=== PATIENT | female | born 2000 | race Caucasian/White ===

== ENCOUNTER 2020-05-22 09:58 | Outpatient (CLI) | payer OTHER, SELFPAY | END 2020-05-22 09:59 | disposition home or self-care (01) | LOC: ANHAUDIO 10:01 | PROVIDERS: PCP Family Medicine; Referring Provider Otolaryngology; Visit Provider Otolaryngology | DX: H93.19 Tinnitus, unspecified ear (principal) | CPT/HCPCS: 92552; 92556; 92567 ==

== ENCOUNTER 2023-04-27 21:17 | Emergency (ER) | payer OTHER, SELFPAY ==
--- NOTE | ~2023-04-27 | XR_ITS ---
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 RESULT: Lines, tubes, and devices: None. Lungs and pleura: Clear. Cardiomediastinal silhouette: Normal. Other: No acute osseous or upper abdominal finding. IMPRESSION: No acute cardiopulmonary process. Reviewed, dictated and finalized at location K. DING AND CONSTRUCTION MANAGER
[2023-04-27 21:20] VITALS: BP 124/84; PULSE 80; RESP 20; TEMP 36.6; O2SAT 99
--- NOTE | 2023-04-27 21:23 | ECG_ITS ---
Measurements Intervals [place] Rate: 70 P: 55 MT: 220 QRS: 50 QRSD: 89 T: 37 QT: 375 QTc: 407 Interpretive Statements SINUS RHYTHM WITH FIRST DEGREE AV BLOCK POSSIBLE LEFT ATRIAL ENLARGEMENT BORDERLINE ECG NO PREVIOUS ECG AVAILABLE FOR COMPARISON Electronically Signed On 04-28-2023 5:36:21 FOOT ORTHOPEDIST by Harley Shah D.O.
--- NOTE | 2023-04-27 21:23 | ED.GENADULT ---
HPI - General Adult General Chief complaint: Chest Pain Stated complaint: Chest Pain Time Seen by Provider: 04/27/23 21:22 History of Present Illness HPI narrative: Sandra is a 22F at 5 weeks gestation that was brought to the ED via EMS with chest pain. It is a squeezing in her anterior chest that radiates to her left jaw. She was originally lightheaded, nauseated and short of breath when it happened but this has resolved. She also reports being under a lot of stress with , work and school. Related Data Home Medications Medication Instructions Recorded Confirmed albuterol sulfate 90 mcg/actuation 2 puff inhalation PRN PRN 04/27/23 04/27/23 aerosol inhaler Shortness Of Breath Or Wheezing fluticasone 232 mcg-salmeterol 14 1 inh inhalation 04/27/23 mcg/actuation breath activated powdr (AirDuo RespiClick) hydroxyzine HCl 10 mg tablet 10 mg PO TID PRN Anxiety 04/27/23 04/27/23 hydroxyzine HCl 25 mg tablet 25 mg PO PRN PRN Anxiety 04/27/23 04/27/23 montelukast 10 mg tablet 10 mg PO DAILY 04/27/23 04/27/23 triamcinolone acetonide 0.5 % 1 applic topical BID 04/27/23 04/27/23 topical cream Allergies Allergy/AdvReac Type Severity Reaction Status Date / Time Penicillins Allergy Unknown Verified 04/27/23 21:37 Review of Systems Review of Systems: All systems reviewed & are unremarkable except as noted in HPI and below Exam Const: General: cooperative, healthy appearing, comfortable, no acute distress, well developed, alert, awake and Physically active Orientation/consciousness: oriented to person, oriented to place and oriented to time HENMT: Head: normal to inspection, normocephalic and atraumatic Ears: hearing grossly normal bilaterally and external ears normal Face/Nose/Sinus: Normal external nose present Eyes: General: appearance normal, both eyes and all related structures Periorbital: periorbital findings normal Sclera: sclerae normal Pupils: Equal, round and reactive pupils present Neck: Neck: normal visual inspection Chest: Chest palpation & inspection: normal inspection of the chest Resp: Effort & Inspection: normal respiratory effort, able to speak in complete sentences and no respiratory distress Auscultation: clear to auscultation bilaterally Cardio: Jugular venous distension: no JVD Rate: regular rate Rhythm: regular rhythm GI: Inspection: normal to inspection GI Palp: Yes Soft to palpation Auscultation: normal bowel sounds Skin: General skin exam: normal color and no rashes or lesions noted Neuro: General: oriented to person, oriented to place and oriented to time Cranial nerves: Yes Equal, round and reactive pupils present Extrem: General: normal to inspection Course Course Emergency Course: EKG showed NSR with a 1st degree AV block but no ST elevation/depression EXAMINATION:? XR chest 1V portable Exam Date/Time:? 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 Comparison:? None. RESULT: Lines, tubes, and devices:? None. Lungs and pleura:? Clear. Cardiomediastinal silhouette:? Normal. Other:? No acute osseous or upper abdominal finding. IMPRESSION: No acute cardiopulmonary process. Labs largely unremarkable. Pain did not change with a GI cocktail. After the lorazepam her chest pain was much improved. Vital Signs Vital signs: Vital Signs Temperature 97.9 F 04/27/23 21:20 Pulse Rate 80 04/27/23 21:20 Respiratory Rate 04/27/23 21:20 Blood Pressure 124/84 04/27/23 21:20 Pulse Oximetry 99 04/27/23 21:20 Oxygen Delivery Room Air 04/27/23 21:20 Temperature 97.9 F 04/27/23 21:20 Pulse Rate 80 04/27/23 21:20 Respiratory Rate 20 04/27/23 21:20 Blood Pressure 124/84 04/27/23 21:20 Pulse Oximetry 99 04/27/23 21:20 Oxygen Delivery Room Air 04/27/23 21:20 Medical Decision Making Vital Signs Vital Signs: Vital Signs Temperature 97.9 F 04/27/23 21:20 Pulse Rate 80 04/27/23 21:20
[2023-04-27 21:43] LABS: Basophils Absolute Auto 0.07 K/mm3 (0.00-0.10); Basophils Percent Auto 0.7 % (0.0-1.0); Eosinophils Absolute Auto 0.41 K/mm3 (0.02-0.50); Eosinophils Percent Auto 3.8 % (1.0-6.0); Hematocrit 35.7 % (35.0-49.0); Hemoglobin 11.7 g/dL (12.0-15.0); Immature Granulocyte Absolute 0.14 K/mm3 (0.00-0.00); Immature Granulocyte Percent A 1.3 % (0.0-0.0); Lymphocytes Absolute Auto 2.54 K/mm3 (1.10-4.50); Lymphocytes Percent Auto 23.7 % (18.0-42.0); Mean Corpuscular HGB Conc 32.8 g/dL (32.0-36.0); Mean Corpuscular Hemoglobin 31.8 pg (27.0-31.0); Mean Platelet Volume 9.1 fl (9.2-11.8); Monocytes Absolute Auto 0.69 K/mm3 (0.10-0.90); Monocytes Percent Auto 6.4 % (2.0-11.0); Neutrophils Absolute Auto 6.9 K/mm3 (1.7-7.2); Neutrophils Percent Auto 64.1 % (50.0-70.0); Platelet Count Result 317 K/mm3 (150-420); Red Blood Count 3.68 M/mm3 (4.20-5.40); Red Cell Distribution Width 11.4 % (11.6-14.4); White Blood Count 10.7 K/mm3 (4.8-10.8)
--- NOTE | 2023-04-27 21:51 | PC.NURSE ---
Pt informed on HIV for , pt consented to have HIV testing done. Order obtained and consent signed for HIV test.
[2023-04-27 21:54] LABS: Prothrombin Time 10.8 Seconds (9.50-12.10)
[2023-04-27] MEDS: MAG HYDROX/ALUMINUM HYD/SIMETH 30 ML, PHENobarb/HYOSCY/ATROPINE/SCOP 32.4 MG, LIDOCAINE... PO (21:54)
[2023-04-27 22:00] LABS: Alanine Aminotransferase 18 U/L (14-59); Albumin Level 3.2 g/dL (3.4-5.0); Alkaline Phosphatase 41 U/L (46-116); Aspartate Amino Transferase < 10 U/L (15-37); Bilirubin,Total 0.1 mg/dL (0.00-1.00); Blood Urea Nitrogen 9 mg/dL (7-18); Calcium 8.3 mg/dL (8.5-10.1); Carbon Dioxide 25 mmol/L (21-32); Estimated CRCL calculation 112 ml/min; Estimated Glomerular Filt Rate > 60; Glucose 105 mg/dL (70-99); Lipase 24 U/L (16-77); Total Protein 6.7 g/dL (6.4-8.2); Troponin I 41.9 ng/L (0.00-60.4)
[2023-04-27 22:16] LABS: Anion Gap 11 mmol/L (8-16); Chloride 100 mmol/L (98-108); Osmolality Calculated 280 mOsm/kg (285-295); Potassium 3.3 mmol/L (3.5-5.1); Sodium 136 mmol/L (136-145)
[2023-04-27 22:26] LABS: HIV 1 P24 AG Negative (Negative); HIV 1/2 AB Negative (Negative)
[2023-04-27 22:37] VITALS: BP 108/64; PULSE 71; RESP 20; O2SAT 98
[2023-04-27] MEDS: LORazepam INJ (*CRX) 2 MG/ML VIAL 1 MG IV PUSH (22:37)
[2023-04-27 23:22] LABS: SARS-CoV-2 RNA PCR Negative (Negative)
[2023-04-27 23:26] LABS: Influenza A QL RT-PCR Negative (Negative); Influenza B QL RT-PCR Negative (Negative); RSV RNA, RT-PCR Negative (Negative)
[2023-04-27 23:40] VITALS: BP 108/62; PULSE 71; RESP 18; TEMP 36.6; O2SAT 99
== END 2023-04-27 23:42 | disposition home or self-care (01) ==
PROVIDERS: Emergency Provider Family Medicine
DX: O26.891 Other specified pregnancy related conditions, first trimester (principal); R07.89 Other chest pain; O99.341 Other mental disorders complicating pregnancy, first trimester; F41.9 Anxiety disorder, unspecified; Z79.899 Other long term (current) drug therapy; Z20.822 Contact with and (suspected) exposure to COVID-19; Z3A.01 Less than 8 weeks gestation of pregnancy
CPT/HCPCS: 36415; 71045; 80053; 83690; 84484; 85025; 85610; 87637; 87806; 93005; 96374; 99284; A9270; J2060

== ENCOUNTER 2023-10-12 13:03 | Emergency (ER) | payer OTHER, SELFPAY ==
--- NOTE | 2023-10-12 13:05 | ED.SKABFB ---
HPI - Skin/Abscess/Foreign Bdy General Chief complaint: Skin/Abscess/Foreign Body Stated complaint: right arm bite with discharge Time Seen by Provider: 10/12/23 13:04 Source: patient Mode of arrival: ambulatory Limitations: no limitations History of Present Illness HPI narrative: Jean Carlos is a 23-year-old female patient presenting to the clinic today with complaints of a possible insect bite to her right arm with some discharge. She reports symptoms started on Wednesday. Noticed a area swollen on her arm and then it developed a pustule in she popped it. States she is having some bloody white discharge coming from the area. Area is tender to palpation. She states that did itchy at . Denies any fever, chills, or body aches. Is concerned about scabies Related Data Home Medications Medication Instructions Recorded Confirmed albuterol sulfate 90 mcg/actuation 1 puff inhalation DAILY 06/26/20 10/12/23 aerosol inhaler fluticasone 113 mcg-salmeterol 14 1 inh inhalation DAILY 06/26/20 10/12/23 mcg/actuation breath activated powdr albuterol sulfate 90 mcg/actuation 2 puff inhalation PRN PRN 04/27/23 10/12/23 aerosol inhaler Shortness Of Breath Or Wheezing hydroxyzine HCl 10 mg tablet 10 mg PO TID PRN Anxiety 04/27/23 10/12/23 hydroxyzine HCl 25 mg tablet 25 mg PO PRN PRN Anxiety 04/27/23 10/12/23 montelukast 10 mg tablet 10 mg PO DAILY 04/27/23 10/12/23 triamcinolone acetonide 0.5 % 1 applic topical BID 04/27/23 10/12/23 topical cream fluticasone 232 mcg-salmeterol 14 1 inh inhalation DAILY 10/12/23 10/12/23 mcg/actuation breath activated powdr (AirDuo RespiClick) Allergies Allergy/AdvReac Type Severity Reaction Status Date / Time Penicillins Allergy Unknown Verified 10/12/23 13:04 fluticasone AdvReac Severe Difficulty Verified 10/12/23 13:04 [From Flovent HFA] Breathing Review of Systems Review of Systems: Pertinent positives per HPI. Patient denies any fever, chills, rash, headache, visual changes, dizziness, cough, runny nose, sore throat, shortness of breath, chest pain, palpitations, nausea, vomiting, diarrhea, constipation, abdominal pain, or any urinary issues. PMFSH Social History Social History Smoking status: Current every day smoker (vape) Tobacco type: e-cigarettes/vaping Second hand tobacco smoke exposure: No Alcohol intake: current Substance use: never Substance use type: does not use Living arrangements: with family Gender identity (if verbalized by the patient): Female Spiritual care concerns: No Comments At the time of my signature, I reviewed and agree with the nursing past medical, surgical, social, and family history. There is no relevant family history pertinent to the patient complaint. Exam Narrative: General: Well-developed, well nourished, in no apparent distress Head: Normocephalic, atraumatic. Cardio: Regular rate and rhythm, s1 and s2 normal, no murmur appreciated. Resp: Clear to auscultation bilaterally, no rhonchi, rales, wheezing or rubs. Integumentary: [place], warm, and dry, red, raised, indurated insect bite with a black center with whitish brown discharge (noted from previous picture). Course Course Emergency Course: Portions of this record may have been created with voice recognition software. Level of Care: Express Care Visit Vital Signs Vital signs: Vital signs reviewed MDM - Skin/Abscess/Foreign Bdy MDM Narrative Medical decision making narrative: At the time of visit patient is resting comfortably on the exam table. Patient appears to be nontoxic. Plan: I suspect patient has a infected insect bite. Prescription for Bactrim and mupirocin cream was sent to the pharmacy. Supportive measures were discussed with the patient and they voiced understanding discharge instructions and agrees to treatment plan. Return precautions reviewed Differential Diagnosis Diffe
[2023-10-12 13:08] VITALS: BP 108/70; PULSE 81; RESP 16; TEMP 36.9; O2SAT 100
== END 2023-10-12 13:30 | disposition home or self-care (01) ==
PROVIDERS: Emergency Provider Nurse Practitioner Family
DX: S40.861A Insect bite (nonvenomous) of right upper arm, initial encounter (principal); L08.9 Local infection of the skin and subcutaneous tissue, unspecified; W57.XXXA Bitten or stung by nonvenomous insect and other nonvenomous arthropods, initial encounter; F17.290 Nicotine dependence, other tobacco product, uncomplicated; J45.909 Unspecified asthma, uncomplicated; K21.9 Gastro-esophageal reflux disease without esophagitis; F41.9 Anxiety disorder, unspecified
CPT/HCPCS: 99213; G0463

== ENCOUNTER 2023-10-13 14:33 | Emergency (ER) | payer OTHER, SELFPAY ==
[2023-10-13 14:33] VITALS: BP 117/87; PULSE 70; RESP 16; TEMP 36.3; O2SAT 100
--- NOTE | 2023-10-13 16:04 | ED.SKABFB ---
HPI - Skin/Abscess/Foreign Bdy General Chief complaint: Skin/Abscess/Foreign Body Stated complaint: wounds Time Seen by Provider: 10/13/23 15:51 History of Present Illness HPI narrative: Pt noticed a itchy bumpt on right forearm near elbow and it drained a little yellow fluid. she says she pulled a infected hair out of this spot. Pt has since developed another spot near this on her arm and onother on her right shoulder and left shoulder. [facility] seen [facility] and started on bactrim DS 1 po BID for 7 days. Related Data Home Medications Medication Instructions Recorded Confirmed albuterol sulfate 90 mcg/actuation 1 puff inhalation DAILY 06/26/20 10/12/23 aerosol inhaler fluticasone 113 mcg-salmeterol 14 1 inh inhalation DAILY 06/26/20 10/12/23 mcg/actuation breath activated powdr albuterol sulfate 90 mcg/actuation 2 puff inhalation PRN PRN 04/27/23 10/12/23 aerosol inhaler Shortness Of Breath Or Wheezing hydroxyzine HCl 10 mg tablet 10 mg PO TID PRN Anxiety 04/27/23 10/12/23 hydroxyzine HCl 25 mg tablet 25 mg PO PRN PRN Anxiety 04/27/23 10/12/23 montelukast 10 mg tablet 10 mg PO DAILY 04/27/23 10/12/23 triamcinolone acetonide 0.5 % 1 applic topical BID 04/27/23 10/12/23 topical cream fluticasone 232 mcg-salmeterol 14 1 inh inhalation DAILY 10/12/23 10/12/23 mcg/actuation breath activated powdr (AirDuo RespiClick) Allergies Allergy/AdvReac Type Severity Reaction Status Date / Time Penicillins Allergy Unknown Verified 10/12/23 13:04 fluticasone AdvReac Severe Difficulty Verified 10/12/23 13:04 [From Flovent HFA] Breathing Review of Systems Review of Systems: All systems reviewed & are unremarkable except as noted in HPI and below PMFSH Social History Social History Smoking status: Current every day smoker (vape) Tobacco type: e-cigarettes/vaping Second hand tobacco smoke exposure: No Alcohol intake: current Substance use: never Substance use type: does not use Living arrangements: with family Gender identity (if verbalized by the patient): Female Spiritual care concerns: No Exam Const: General: healthy appearing and no acute distress Nutritional Appearance: well nourished Orientation/consciousness: patient oriented x3 Limitations: no limitations Resp: Effort & Inspection: normal respiratory effort Cardio: Rate: regular rate Rhythm: regular rhythm Skin: Other: small pustular lesion x 4 near fold of elbow on right no abscess, erythematous macular spot to right and left deltoid. Neuro: General: patient oriented x3 and moves all extremities Speech: normal speech Extrem: General: no clubbing, cyanosis or edema Psych: Mental Status: mental status grossly normal Affect: normal affect Attitude: cooperative Course Vital Signs Vital signs: Vital Signs Temperature 97.3 F L 10/13/23 14:33 Pulse Rate 70 10/13/23 14:33 Respiratory Rate 16 10/13/23 14:33 Blood Pressure 117/87 10/13/23 14:33 Pulse Oximetry 100 10/13/23 14:33 Oxygen Delivery Room Air 10/13/23 14:33 Temperature 97.3 F L 10/13/23 14:33 Pulse Rate 70 10/13/23 14:33 Respiratory Rate 16 10/13/23 14:33 Blood Pressure 117/87 10/13/23 14:33 Pulse Oximetry 100 10/13/23 14:33 Oxygen Delivery Room Air 10/13/23 14:33 MDM - Skin/Abscess/Foreign Bdy MDM Narrative Medical decision making narrative: no palpable abscess. looks like folliculitis but several spots so likely MRSA. Will do 2 po bid bactrim Discharge Plan Discharge Clinical Impression: Folliculitis Patient Disposition: Home, Self-Care Condition: Stable Instructions: Antibiotic Form, Folliculitis (ED) Prescriptions: New sulfamethoxazole-trimethoprim [Bactrim DS] 800-160 mg tablet 1 tablet PO Q12H Qty: 14 0RF No Action triamcinolone acetonide 0.5 % cream 1 applic TOPICAL BID montelukast 10 mg Ta
== END 2023-10-13 16:21 | disposition home or self-care (01) ==
PROVIDERS: Emergency Provider Emergency Medicine
DX: L73.9 Follicular disorder, unspecified (principal); F17.290 Nicotine dependence, other tobacco product, uncomplicated; Z79.899 Other long term (current) drug therapy
CPT/HCPCS: 99283

== ENCOUNTER 2023-12-11 23:53 | Emergency (ER) | payer OTHER, SELFPAY ==
[2023-12-11 23:53] VITALS: BP 122/85; PULSE 83; RESP 18; TEMP 36.8; O2SAT 96
--- NOTE | 2023-12-12 00:05 | ED.SKABFB ---
HPI - Skin/Abscess/Foreign Bdy General Chief complaint: Skin/Abscess/Foreign Body Stated complaint: Staph on head Time Seen by Provider: 12/12/23 00:04 Source: patient Mode of arrival: ambulatory History of Present Illness HPI narrative: patient with a scab on her left posterior scalp has a history of Staph otherwise no fever chills no shortness of breath no drainage from the site. complaint: rash Onset (ago): day(s) Related Data Home Medications Medication Instructions Recorded Confirmed albuterol sulfate 90 mcg/actuation 1 puff inhalation DAILY 06/26/20 12/11/23 aerosol inhaler fluticasone 113 mcg-salmeterol 14 1 inh inhalation DAILY 06/26/20 12/11/23 mcg/actuation breath activated powdr albuterol sulfate 90 mcg/actuation 2 puff inhalation PRN PRN 04/27/23 12/11/23 aerosol inhaler Shortness Of Breath Or Wheezing hydroxyzine HCl 10 mg tablet 10 mg PO TID PRN Anxiety 04/27/23 12/12/23 hydroxyzine HCl 25 mg tablet 25 mg PO PRN PRN Anxiety 04/27/23 12/11/23 montelukast 10 mg tablet 10 mg PO DAILY 04/27/23 12/12/23 triamcinolone acetonide 0.5 % 1 applic topical BID 04/27/23 12/12/23 topical cream fluticasone 232 mcg-salmeterol 14 1 inh inhalation DAILY 10/12/23 12/11/23 mcg/actuation breath activated powdr (AirDuo RespiClick) Allergies Allergy/AdvReac Type Severity Reaction Status Date / Time Penicillins Allergy Unknown Verified 10/12/23 13:04 Sulfa (Sulfonamide Allergy Rash Verified 12/11/23 23:59 Antibiotics) fluticasone AdvReac Severe Difficulty Verified 10/12/23 13:04 [From Flovent HFA] Breathing Review of Systems Review of Systems: All systems reviewed & are unremarkable except as noted in HPI and below PMFSH Social History Social History Smoking status: Current every day smoker (vape) Tobacco type: e-cigarettes/vaping Second hand tobacco smoke exposure: No Alcohol intake: current Substance use: never Substance use type: does not use Living arrangements: with family Gender identity (if verbalized by the patient): Female Spiritual care concerns: No Exam Const: General: healthy appearing and no acute distress Nutritional Appearance: well nourished Neck: Neck: normal visual inspection, no lymphadenopathy and no meningeal signs Chest: Chest palpation & inspection: normal inspection of the chest Resp: Effort & Inspection: normal respiratory effort Auscultation: clear to auscultation bilaterally Cardio: Rate: regular rate Rhythm: regular rhythm Skin: Wounds: wounds noted Neuro: General: patient oriented x3 Extrem: General: normal to inspection Course Course Emergency Course: Scabbed lesion on her posterior scalp patient has a mupirocin at home and advised to apply 3 times a day x1 week and with allergies to sulfa and penicillin will give a dose of Levaquin prior to discharge. Critical Care Time Critical Care Time Critical Care Time: No Discharge Plan Discharge Clinical Impression: [place]igo Patient Disposition: Home, Self-Care Condition: Stable Instructions: Antibiotic Form, [place] (ED) Additional Instructions: Advised to continue mupirocin 3 times a day x1 week and take medication as prescribed. Prescriptions: New levofloxacin 500 mg tablet 500 mg PO DAILY 6 Days Qty: 6 0RF No Action triamcinolone acetonide 0.5 % cream 1 applic TOPICAL BID montelukast 10 mg Tablet 10 mg PO DAILY hydroxyzine HCl 25 mg tablet 25 mg PO PRN PRN (Reason: Anxiety) albuterol sulfate 90 mcg/actuation HFA aerosol inhaler 2 puff INHALATION PRN PRN (Reason: Shortness Of Breath Or Wheezing) hydroxyzine HCl 10 mg Tablet 10 mg PO TID PRN (Reason: Anxiety) fluticasone propion-salmeterol [AirDuo RespiClick] 232-14 mcg/actuation aerosol powdr breath activated 1 inh INHALATION DAILY mupirocin 2 % ointment 1 applic topical BID 7 Days Qty: 2
[2023-12-12] MEDS: levoFLOXacin 500 MG TABLET PO (00:10)
== END 2023-12-12 00:22 | disposition home or self-care (01) ==
PROVIDERS: Emergency Provider Emergency Medicine
DX: L01.00 Impetigo, unspecified (principal); F17.290 Nicotine dependence, other tobacco product, uncomplicated; Z79.899 Other long term (current) drug therapy
CPT/HCPCS: 99283; A9270

== ENCOUNTER 2024-08-02 18:11 | Emergency (ER) | payer OTHER, SELFPAY ==
--- OUTSIDE RECORDS SUMMARY | 2024-08-02 18:14 | XMS_ITS | Clinical Summary ---
Author Organization [facility] Address [address] [place] [address] Care Team Providers Care Sample Mounter Name Role Phone Cm Brenner MD Primary Care Provider + Allergies Active Allergy Reactions Criticality Noted Date Comments Amoxicillin Hives Medium 12/05/2017 Fluticasone Anxiety Low 09/24/2017 Medications albuterol HFA (PROVENTIL HFA,VENTOLIN HFA,PROAIR HFA) 90 mcg/actuation inhaler Inhale 2 puffs every 4 (four) hours as needed for wheezing 18 g 07/03/19 19 Active ipratropium-albut joel (DUO-NEB) 0.5-2.5 mg/3 mL nebulizer solutionIndicatio ns:Chronic Obstructive Pulmonary Disease with Bronchospasms Take 3 mL by nebulization every 6 (six) hours 180 mL 07/25/19 19 Active budesonide-formot joel (SYMBICORT) 80-4.5 mcg/actuation inhaler Inhale 2 puffs 2 (two) times a day Rinse mouth with water after use. Do not swallow. 1 Inhaler 07/25/19 19 Active benzonatate (TESSALON) 100 mg capsuleIndication s:Cough Take 1 capsule (100 mg total) by mouth 3 (three) times a day as needed for cough 15 capsule 07/13/19 20 Active Additional Information Patient not taking.Reported on 07/25/2021 cyclobenzaprine (FLEXERIL) 10 mg tablet Take 1 tablet (10 mg total) by mouth 3 (three) times a day as needed for muscle spasms 12 tablet 02/12/20 21 Active Additional Information Patient not taking.Reported on 07/25/2021 ibuprofen (ADVIL,MOTRIN) 600 mg tablet Take 1 tablet (600 mg total) by mouth every 6 (six) hours as needed for pain 30 tablet 02/12/20 21 Active Additional Information Patient not taking.Reported on 07/25/2021 ergocalciferol (VITAMIN D) 50,000 unit capsule ergocalciferol (vitamin D2) 1,250 mcg (50,000 unit) capsule Active etonogestreL (Nexplanon) 68 mg implant Nexplanon 68 mg subdermal implant insert 1 not specified by intramuscular route every time for 3 years 09/09/19 19 Active fluticasone propion-salmetero L (AIRDUO RESPICLICK) 113-14 mcg/actuation inhaler fluticasone 113 mcg-salmeterol 14 mcg/actuation breath activated powdr INHALE 1 PUFF BY MOUTH TWICE A DAY Active fluticasone propionate (FLONASE) 50 mcg/actuation nasal spray fluticasone propionate 50 mcg/actuation nasal spray,suspension Active montelukast (SINGULAIR) 10 mg tablet Take 10 mg by mouth daily 07/07/19 22 Active triamcinolone (KENALOG) 0.5 % cream triamcinolone acetonide 0.5 % topical cream APPLY A THIN LAYERS TO THE AFFECTED AREA(S) ON THE SKIN TWICE DAY Active Active Problems No known active problems Encounters Date Type Department Care Team Description 06/08/2024 6:20 PM CORRECTIONAL 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 Lab [facility] [address] [place] [phone] Screening for tuberculosis 06/08/2024 Orders Only [facility] [address] ([address] Floor) [place] [address] Florentino Rai MD Screening for tuberculosis (Primary Dx) from Last 3 Months Surgical History Surgery Date Site/Laterality Comments TONSILLECTOMY Medical History Medical History Date Comments Asthma Social History Tobacco Use Types Packs/Day Years Used Date Smoking Tobacco: Former Smokeless Tobacco: Never Comments:pt reports that she Vapes Alcohol Use Standard Drinks/Week Comments No 0 (1 standard drink = 0.6 oz pur e alcohol) Comments No Sex and Gender Information Value Date Recorded Sex Assigned at Not on file Legal Sex Female 11:25 AM CORRECTIONAL MAINTENANCE TECHNICIAN Gender Identity Not on file Sexual Orientation Not on file Obstetrics History Last Filed Vital Signs Vital Sign Reading Time Taken Comments Blood Pressure 115/77 01/05/2022 4:37 PM CDT Pulse 74 01/05/2022 4:37 PM CDT Temperature 36.7 C (98.1 F) 01/05/2022 11:43 AM CDT Respiratory Rate 18 01/05/2022 4:37 PM CDT Oxygen Saturation 99% 01/05/2022 4:37 PM CDT Inhaled Oxygen Concentration - - Weight 91.2 kg (201 lb 1 oz) 01/05/2022 11:43 AM CDT Height 160 cm (5' 3 ) 01/05/2022 11:43 AM CDT Body Mass Index 35.62 01/05/2022 11:43 AM CDT Plan of Treatment Health Maintenance Due Date Last Done Comments Cervical Cancer Screening 1999 Depression Screening 1999 Hepatitis C Screening 1999 Pneumococcal vaccine <65 (1 of 1 - PPSV23) 02/28/2009 01/03/2009, 07/02/2001, 05/05/2001, Additional history exists Regular Well Visit/Exam 18-64 06/18/2017 Covid-19 Vaccine (2 - 2023-2 5 season) 2023 12/26/2020 DTaP/Tdap/Td Vaccine (7 - Td or Tdap) 06/12/2032 06/12/2022, 01/30/2011, 05/05/2001, Additional history exists Hepatitis B Screening Completed 03/29/2000 , 1999, 1999 Varicella Vaccines Completed 01/09/2008, 07/05/2000 HPV Vaccines Completed 10/14/2012, 09/18, 01/30/2011 Influenza Vaccine Completed 01/04/2024, , 02/01/2020, Additional history exists Procedures Procedure Name Priority Date/Time Associated Diagnosis Comments T-SPOT.TB Routine 06/08/2024 3:29 PM CORRECTIONAL MAINTENANCE TECHNICIAN Screening for tuberculosis from Last 3 Months Results * T-SPOT.TB Blood (06/08/2024 3:29 PM CORRECTIONAL MAINTENANCE TECHNICIAN) [facility] T-SPOT.TB Negative SeeBelow Comment: Normal Value: Negative A negative test result does not exclude the possibility of exposure to or infection with Mycobacterium tuberculosis (M. tuberculosis). Patients with recent exposure to TB infected individuals exhibiting a negative T-SPOT.TB result should be considered for retesting within 6 weeks or if other relevant clinical symptoms indicate. Results from T-SPOT.TB testing must be used in conjunction with each individual's epidemiological history, current medical status, and results of other diagnostic evaluations. The T-SPOT.TB test is qualitative and results are reported as positive, borderline or negative, given that the test controls perform as expected. In line with the Centers for Disease Control and Prevention's 2010 recommendation to report quantitative measurements alongside the qualitative result, the laboratory provides spot counts for informational purposes only. The T-SPOT.TB test should not be interpreted as a quantitative test. T-SPOT.TB Panel A Spot Count 0 [facility] T-SPOT.TB Panel B Spot Count 0 [facility] T-SPOT.TB Negative Control Passed [facility] T-SPOT.TB Positive Control Passed [facility] Comment: Test Performed at: [facility] [employer] [address] [place] [phone] NADIA GARNER,PHD Blood 06/08/2024 3:29 PM CORRECTIONAL MAINTENANCE TECHNICIAN 06/08/2024 6:25 PM CORRECTIONAL MAINTENANCE TECHNICIAN Florentino Rai MD LAB MICROBIOLOGY - GENERAL OR DERABLES Final Result Performing Organization Address City/State/[facility] Co de Phone Number [facility] Department [place] [address] from Last 3 Months Insurance [facility] Member Subscriber Plan / Payer (Ef fective 2017-Present) Name:Jailyn Perduekellie Ziegler Relation to Subscriber:Self Name:IronSandra Toney Payer ID:[id number] (NA) Type:MEDICAID RISK OTHER Address: [address] Member Subscriber Plan / Payer (Ef fective 2017-Present) Name:Jailyn Perduekellie Ziegler Relation to Subscriber:Self Name:Sandra Perdue Payer ID:[id number] (NA) Type:MEDICAID RISK OTHER Address: [address] Care Teams Sample Mounter Relationship Specialty Start Date End Date Cm Brenner MD [id number] [facility] [address] [place] [address] PCP - General Family Medicine 08/03/23
--- OUTSIDE RECORDS SUMMARY | 2024-08-02 18:14 | XMS_ITS | Referral Summary ---
Author Organization [facility] Address [address] [place] [address] Care Team Providers Care Sheet Manager Name Role Phone Cm Brenner MD Primary Care Provider + Encounters Date Type Department Care Team Description 06/08/2024 6:20 PM THIOKOL OPERATOR Lab [facility] Advanced Medicine [facility] Advanced Medicine ([facility]) [address] [place] [phone] Screening for tuberculosis 06/08/2024 Orders Only [facility] Occupatiuonal Health [address] [facility] [address] (Third Floor) [place] [address] Florentino Rai MD Screening for tuberculosis (Primary Dx) from Last 3 Months Allergies Active Allergy Reactions Criticality Noted Date [...] Active Active Problems No known active problems Social History Tobacco Use Types Packs/Day Years Used Date Smoking Tobacco: Former Smokeless Tobacco: Never Comments:pt reports that she Vapes Alcohol Use Standard Drinks/Week Comments No 0 (1 standard drink = 0.6 oz pur e alcohol) Comments No Sex and Gender Information Value Date Recorded Sex Assigned at Not on file Legal Sex Female 11:25 AM THIOKOL OPERATOR Gender Identity Not on file Sexual Orientation Not on file Last Filed Vital Signs Vital Sign Reading [...] 01/05/2022 11:43 AM CDT Plan of Treatment Not on file Procedures Procedure Name Priority Date/Time Associated Diagnosis Comments T-SPOT.TB Routine 06/08/2024 3:29 PM THIOKOL OPERATOR Screening for tuberculosis from Last 3 Months Results * T-SPOT.TB Blood (06/08/2024 3:29 PM THIOKOL OPERATOR) [facility] T-SPOT.TB Negative SeeBelow Comment: Normal Value: [...] test. T-SPOT.TB Panel A Spot Count 0 [facility] T-SPOT.TB Panel B Spot Count 0 [facility] T-SPOT.TB Negative Control Passed [facility] T-SPOT.TB Positive Control Passed [facility] Comment: Test Performed at: Command Information TB, Tag & See [address] [address] NADIA GARNER,PHD Blood 06/08/2024 3:29 PM THIOKOL OPERATOR 06/08/2024 6:25 PM THIOKOL OPERATOR us Florentino Rai MD LAB MICROBIOLOGY - GENERAL OR DERABLES Final Result [facility] Department [place] [address] from Last 3 Months Insurance [facility] Member Subscriber Plan / Payer (Ef fective 2017-Present) Name:Sandra Perdue Relation to Subscriber:Self Name:Sandra Perdue Payer ID:[id number] (NAIC) Type:MEDICAID RISK OTHER Address: [address] Care Teams Sheet Manager Relationship Specialty Start Date End Date Cm Brenner MD [address] [facility] [address] [place] [address] PCP - General Family Medicine 08/03/23
[2024-08-02 18:15] VITALS: BP 108/74; PULSE 81; RESP 17; TEMP 36.1; O2SAT 100
--- OUTSIDE RECORDS SUMMARY | 2024-08-02 18:15 | XMS_ITS | Data Portability ---
Author Organization [facility] [place] Address [address] [place] [address] [place] [address] Care Team Providers Care Marketing Representative Name Role Phone BEKAH WANG Primary Care Provider [phone] Assessment Encounter Date Assessment Date Assessment LastModified by Organization Details LastModified Time 06/13/2024 06/13/2024 Patient is ___weeks . Discussed plan. [email or web address] Not available 06/13/2024 14:46:17 07/11/2024 07/11/2024 Patient is __20_weeks . Discussed plan. Not available 07/12/2024 08:39:49 Plan of Treatment Reminders Order Date Submit Date Provider Last Modified By Organization Details Last Modified Time Details Appointments OB ROUTINE 2024 09:00A Delilah Ng CNM Not available Not available Not available Lab drug screen, urine 2024 025 [email or web address] [place], [address], [place], [address], 05/16/2024 11:41:48 genetic screen, unspecifi ed specimen 2024 025 MAURIZIO Araujo, [address] , [place], [address], 05/26/2024 17:41:00 aneuploid y risk, chromosom e specific circulati ng cell free (ccf) DNA, maternal serum 2024 025 MAURIZIO Araujo, [address] [facility] , [place], [address], 05/23/2024 00:30:21 HbA1c (hemoglob in A1c), blood 2024 025 [facility] (Lab), [address], [place], [address], 05/17/2024 10:37:49 type + screen, serum 2024 025 [facility] (Lab), [address], [place], [address], 05/17/2024 10:37:48 rubella igg Ab, titer, serum 2024 025 [facility] (Lab), [address], [place], [address], 05/17/2024 10:37:47 CBC w/ auto diff 2024 025 [facility] (Lab), [address], [place], [address], 05/17/2024 10:37:46 hepatitis C virus Ab, serum 2024 025 [facility] (Lab), [address], [place], [address], 05/17/2024 10:37:48 HBsAg (hepatiti s B surface Ag), serum 2024 025 [facility] (Lab), [address], [place], [address], 05/17/2024 10:37:46 RPR (rapid plasma reagin), serum 2024 025 [facility] (Lab), [address], [place], [address], 05/17/2024 10:37:49 HIV 1+2 AB + HIV 1 p24 Ag, qualitati ve immunoass ay, serum 2024 025 [facility] (Lab), [address], [place], [address], 05/17/2024 10:37:47 Referral None recorded. Procedures None recorded. Surgeries None recorded. Imaging US, obstetric , 2nd or 3rd trimester 2024 025 [email or web address] [place], [address], [place], [address], 07/11/2024 23:02:57 US, obstetric , nuchal transluce ncy 2024 025 [email or web address] [place], [address], [place], [address], 05/17/2024 08:27:19 Medication Orders None recorded. Patient TargetsNo targets recorded. Patient InstructionsNo instructions recorded. Reason for Referral None Reported. Results Created Date Observation Date Name Description Value Unit Range Abnormal Flag Note LastModifiedBy Organization Detail LastModifiedTime 05/23/19 25 05/23/2024 [UNIT Y] ANEUP LOIDY NIPT fraction 4.9% normal Not Available [facility] [address] [place] [address], [address], 05/23/2024 00:30:21 05/23/19 25 05/23/2024 [UNIT Y] ANEUP LOIDY NIPT 22Q11.2 microdeletio n LOW RISK <1 in 10,000 normal Not Available [facility] [place], [address], 05/23/2024 00:30:21 05/23/19 25 05/23/2024 [UNIT Y] ANEUP LOIDY NIPT sex chromosome aneuploidy NOT DETECT ED normal Not Available [facility] [address] [place], [address], 05/23/2024 00:30:21 05/23/19 25 05/23/2024 [UNIT Y] ANEUP LOIDY NIPT monosomy X LOW RISK <1 in 10,000 normal Not Available [facility], [place], [address], 05/23/2024 00:30:21 05/23/19 25 05/23/2024 [UNIT Y] ANEUP LOIDY NIPT trisomy 13 LOW RISK <1 in 10,000 normal Not Available [facility] [address] [facility], [place], [address], 05/23/2024 00:30:21 05/23/19 25 05/23/2024 [UNIT Y] ANEUP LOIDY NIPT trisomy 18 LOW RISK <1 in 10,000 normal Not Available [facility] [address] [facility], [place], [address], 05/23/2024 00:30:21 05/23/19 25 05/23/2024 [UNIT Y] ANEUP LOIDY NIPT trisomy 21 LOW RISK <1 in 10,000 normal Not Available [facility] [address] [facility], [place], [address], 05/23/2024 00:30:21 05/23/19 25 05/23/2024 [UNIT Y] ANEUP LOIDY NIPT sex MALE normal Not Available [facility] [address] [facility], [place], [address], 05/23/2024 00:30:21 05/23/19 25 05/23/2024 [UNIT Y] ANEUP LOIDY NIPT gestation SINGLE TON EGG DONOR normal Not Available [facility] [address] [facility], [place], [address], 05/23/2024 00:30:21 05/23/19 25 05/23/2024 [UNIT Y] ANEUP LOIDY NIPT for detailed report, see pdf See PDF normal Not Available [facility] [address] [facility], [place], [address], 05/23/2024 00:30:21 05/26/19 25 05/26/2024 [UNIT Y] KARI Ortega sickle cell disease/beta -thalassemia /hemoglobino pathies carrier screen NEGATI VE normal Not Available [facility] [address], [place], [address], 05/26/2024 17:41:00 05/26/19 25 05/26/2024 [UNIT Y] KARI SALCIDOBaylee Ortega alpha-thalas semia carrier screen NEGATI VE normal Not Available [facility] [address], [place], [address], 05/26/2024 17:41:00 05/26/19 25 05/26/2024 [UNIT Y] KARI SALCIDOBaylee Ortega cystic fibrosis carrier screen NEGATI VE normal Not Available [facility] [address], [place], [address], 05/26/2024 17:41:00 05/26/19 25 05/26/2024 [UNIT Y] KARI SALCIDOBaylee Ortega spinal muscular atrophy carrier screen NEGATI VE 2 SMN1 copies , SNP not presen t normal Not Available [facility] [address], [place], [address], 05/26/2024 17:41:00 05/26/19 25 05/26/2024 [UNIT Y] KARI PILLAI Jordan for detailed report, see pdf See PDF normal Not Available [facility] [address] [facility], [place], [address], 05/26/2024 17:41:00 04/20/19 25 04/20/2024 CT/GC AND TRICH OMONA S VAGIN KIRAN (RRNA ), URINE chlamydia trachomatis, PCR Positi ve negati ve abnormal Posit buffy: Prese nce of C. trach omati s (by AGATA) Chlam ydia trach omati s RNA detec kelsy by PCR. Not Available [facility] (Lab) [address], [place], [address], 04/22/2024 08:06:17 04/20/19 25 04/20/2024 CT/GC AND TRICH OMONA S VAGIN KIRAN (RRNA ), URINE neisseria gonorrhoeae, PCR Negati ve negati ve Not Available [facility] (Lab) [address] [facility], [place], [address], 04/22/2024 08:06:17 04/20/1904/20/2024 CT/GC AND TRICH OMONA S VAGIN KIRAN (RRNA ), URINE trichomonas vaginalis ribosomal RNA (rrna) Negati ve negati ve Not Available [facility] (Lab) [address] [facility], [place], [address], 04/22/2024 08:06:17 05/16/19 25 05/16/2024 CBC W/DIF F WBC 10.5 10'3/ uL 3.5-[address] [facility] (Lab) [address] [facility], [place], [address], 05/17/2024 10:37:45 05/16/19 25 05/16/2024 CBC W/DIF F RBC 4.12 10'6/ uL (based on docume nted legal sex) 3.80-[address] [facility] (Lab) [address] [facility], [place], [address], 05/17/2024 10:37:45 05/16/19 25 05/16/2024 CBC W/DIF F HGB 12.8 g/dL (based on docume nted legal sex) 11.6-[address] [facility] (Lab) [address] [facility], [place], [address], 05/17/2024 10:37:45 05/16/19 25 05/16/2024 CBC W/DIF F HCT 39.2 % (based on docume nted legal sex) 34.0-[address] [facility] (Lab) [address] [facility], [place], [address], 05/17/2024 10:37:45 05/16/19 25 05/16/2024 CBC W/DIF F MCV 95.1 fL 80.0-[address] [facility] (Lab) [address] [facility], [place], [address], 05/17/2024 10:37:45 05/16/19 25 05/16/2024 CBC W/DIF F MCH 31.1 pg 27.0-[address] [facility] (Lab) [address] [facility], [place], [address], 05/17/2024 10:37:45 05/16/19 25 05/16/2024 CBC W/DIF F MCHC 32.7 g/dL 32.0-[address] [facility] (Lab) [address] [facility], [place], [address], 05/17/2024 10:37:45 05/16/19 25 05/16/2024 CBC W/DIF F RDW 12.1 % 11.0-[address] [facility] (Lab) [address] [facility], [place], [address], 05/17/2024 10:37:45 05/16/19 25 05/16/2024 CBC W/DIF F plt 304 10'3/ uL 150-[address] [facility] (Lab) [address] [facility], [place], [address], 05/17/2024 10:37:45 05/16/19 25 05/16/2024 CBC W/DIF F MPV 10.8 fL 8.8-[address] [facility] (Lab) [address] [facility], [place], [address], 05/17/2024 10:37:45 05/16/19 25 05/16/2024 CBC W/DIF F neutrophils 68.9 % 34.0-[address] [facility] (Lab) [address] [facility], [place], [address], 05/17/2024 10:37:45 05/16/19 25 05/16/2024 CBC W/DIF F lymphocytes 18.9 % 15.0-[address] [facility] (Lab) [address] [facility], [place], [address], 05/17/2024 10:37:45 05/16/19 25 05/16/2024 CBC W/DIF F monocytes 6.5 % 1.0-[address] [facility] (Lab) [address] [facility], [place], [address], 05/17/2024 10:37:45 05/16/19 25 05/16/2024 CBC W/DIF F eosinophils 4.7 % 0.0-8. [address] [facility] (Lab) [address] [facility], [place], [address], 05/17/2024 10:37:45 05/16/19 25 05/16/2024 CBC W/DIF F basophils 0.5 % 0.0-2. [address] [facility] (Lab) [address] [facility], [place], [address], 05/17/2024 10:37:45 05/16/19 25 05/16/2024 CBC W/DIF F immature granulocytes 0.5 % no define d refere nce range Immat ure Granu locyt es (IG) repre sents autom ated enume ratio n of Metam yeloc ytes, Myelo cytes and Promy elocy vi when IG is < 5%. Blast s are not inclu ded in IG and repor kelsy separ ately if prese nt. Not Available [facility] (Lab) [address] [facility], [place], [address], 05/17/2024 10:37:45 05/16/19 25 05/16/2024 CBC W/DIF F absolute neutrophils 7.3 10'3/ uL 1.5-8. [address] [facility] (Lab) [address] [facility], [place], [address], 05/17/2024 10:37:45 05/16/19 25 05/16/2024 CBC W/DIF F absolute lymphocytes 2.0 10'3/ uL 1.0-4. [address] [facility] (Lab) [address] [facility], [place], [address], 05/17/2024 10:37:45 05/16/19 25 05/16/2024 CBC W/DIF F absolute monocytes 0.7 10'3/ uL 0.2-1. [address] [facility] (Lab) [address] [facility], [place], [address], 05/17/2024 10:37:45 05/16/19 25 05/16/2024 CBC W/DIF F absolute eosinophils 0.5 10'3/ uL 0.0-0. [address] [facility] (Lab) [address] [facility], [place], [address], 05/17/2024 10:37:45 05/16/19 25 05/16/2024 CBC W/DIF F absolute basophils 0.1 10'3/ uL 0.0-0. [address] [facility] (Lab) [address] [facility], [place], [address], 05/17/2024 10:37:45 05/16/19 25 05/16/2024 CBC W/DIF F absolute immature granulocytes 0.1 10'3/ uL 0.00-0 .10 Refer ence range s for nonbi nary/ inter sex or unspe cifie d gende r patie nts have not been estab lishe d. Pleas e refer [facility] table for range s estab lishe d for cisge nder patie nts and evalu ate in the clini azael itz xt of the indiv idual patie nt: https ://ron gil book. nm.or g/Gen derX Not Available [facility] (Lab) [address] [facility], [place], [address], 05/17/2024 10:37:45 05/16/19 25 05/16/2024 HEPAT ITIS B SURFA CE ANTIG EN hepatitis B surface antigen Non-re active non-re active This assay was perfo rmed using [employer] ratio n reage nts and test kits. Value s obtai richard with other assay metho ds or kits canno t be used inter thompson eably . Not Available [facility] (Lab) [address] [facility], [place], [address], 05/17/2024 10:37:46 05/16/19 25 05/16/2024 HIV 1/2 ANTIG EN/AN TIBOD Y, REFLE X CONFI RMATI ON HIV antigen/anti body Nonrea ctive nonrea ctive HIV-1 antig en and HIV-1 /HIV- 2 antib odies were not detec kelsy. No labor atory evide nce of HIV infec tion. Not Available [facility] (Lab) [address] [facility], [place], [address], 05/17/2024 10:37:47 05/16/19 25 05/16/2024 RUBEL LA IGG ANTIB GILMA, QUANT rubella antibodies, IgG Non-Re active reacti ve abnormal Not Available [facility] (Lab) [address] [facility], [place], [address], 05/17/2024 10:37:47 05/16/19 25 05/16/2024 RUBEL LA IGG ANTIB GILMA, QUANT rubella antibodies, IgG quant <10.0 IU/mL >=10 low Non-r eacti ve (Non- Immun e) <10 IU/mL React buffy (Immu ne) > or = 10 IU/mL Not Available [facility] (Lab) [address] [facility], [place], [address], 05/17/2024 10:37:47 05/16/19 25 05/16/2024 TYPE/ RH/SC REEN ABO/Rh type A POS Not Available [facility] (Lab) [address] [facility], [place], [address], 05/17/2024 10:37:48 05/16/19 25 05/16/2024 TYPE/ RH/SC REEN antibody screen NEG Not Available [facility] (Lab) [address], [place], [address], 05/17/2024 10:37:48 05/16/19 25 05/16/2024 TYPE/ RH/SC REEN exp date 2024 23:[address] [facility] (Lab) [address], [place], [address], 05/17/2024 10:37:48 05/16/19 25 05/16/2024 HEPAT ITIS C ANTIB GILMA SCREE N, REFLE X TO CONFI RMATI ON hepatitis C antibody Non-re active non-re active Antib odies to HCV Not Detec kelsy, does not exclu de the possi bilit y of expos ure to HCV. Not Available [facility] (Lab) [address], [place], [address], 05/17/2024 10:37:48 05/16/19 25 05/16/2024 HEMOG LOBIN A1C hemoglobin A1C 5.3 % 4.0-5. 6 The Ameri can Diabe vi Assoc iatio n recom mends that a prima ry goal of thera py shawn d be a HBA1C of < 7% and that physi cians shoul d reeva luate the treat ment regim en in patie nts with HBA1C value s consi stent ly > 8%. <5.7% Toshia l 5.7 - 6.4% Incre ased risk for diabe vi >=6.5 % Diagn ostic of diabe vi <7.0% Goal of thera py >8.0% Actio n sugge sted Not Available [facility] (Lab) [address], [place], [address], 05/17/2024 10:37:49 05/16/19 25 05/16/2024 RPR SCREE N, REFLE X TITER /CONF IRMAT ION RPR screen Nonrea ctive nonrea ctive Not Available [facility] (Lab) [address], [place], [address], 05/17/2024 10:37:49 05/16/19 25 05/16/2024 CT/GC AND TRICH OMONA S VAGIN KIRAN (RRNA ), URINE chlamydia trachomatis, PCR Negati ve negati ve Not Available [facility] (Lab) [address] [facility], [place], [address], 05/17/2024 13:19:05 05/16/19 25 05/16/2024 CT/GC AND TRICH OMONA S VAGIN KIRAN (RRNA ), URINE neisseria gonorrhoeae, PCR Negati ve negati ve Not Available [facility] (Lab) [address] [facility], [place], [address], 05/17/2024 13:19:05 05/16/19 25 05/16/2024 CT/GC AND TRICH OMONA S VAGIN KIRAN (RRNA ), URINE trichomonas vaginalis ribosomal RNA (rrna) Negati ve negati ve Not Available [facility] (Lab) [address] [facility], [place], [address], 05/17/2024 13:19:05 05/16/1905/16/2024 CULTU RE: URINE result report SEE RESULT S BELOW Test: Cultu re: Urine Speci men Sourc e: Urine - Clean Catch Speci men Type: Urine Speci men Date: 2024 1317 Resul t Date: 20248 Resul t Statu s: Final resul t Abnor mal: No Resul ting Lab: [facility] [address] [facility] [address] Tel: CULTU RE ----- ----- ----- --- No growt h in 1 day (dete ction level of 10,00 0 colon ies / ml.) Not Available [facility] (Lab) [address] [place], [address], 05/17/2024 23:02:41 05/16/19 25 05/16/2024 drug scree n, urine Amphetamines : negati ve Not Available [place] [address], [place], [address], 05/16/2024 11:41:01 05/16/19 25 05/16/2024 drug scree n, urine Cannabinoids : negati ve Not Available [place] [address], [place], [address], 05/16/2024 11:41:01 05/16/19 25 05/16/2024 drug scree n, urine Cocaine: negati ve Not Available [place] [address], [place], [address], 05/16/2024 11:41:01 05/16/19 25 05/16/2024 drug scree n, urine Opiates: negati ve Not Available [place] [address], [place], [address], 05/16/2024 11:41:01 05/16/19 25 05/16/2024 drug scree n, urine Phenocyclidi ne: negati ve Not Available [place] [address], [place], [address], 05/16/2024 11:41:01 05/16/19 25 05/16/2024 drug scree n, urine Barbiturates : negati ve Not Available [place] [address], [place], [address], 05/16/2024 11:41:01 05/16/19 25 05/16/2024 drug scree n, urine Benzodiazepi lara: negati ve Not Available [facility] [address], [place], [address], 05/16/2024 11:41:01 05/16/19 25 05/16/2024 drug scree n, urine Ethanol: negati ve Not Available [place] [address], [place], [address], 05/16/2024 11:41:01 05/16/19 25 05/16/2024 drug scree n, urine Hallucinogen s: negati ve Not Available [facility] [address], [place], [address], 05/16/2024 11:41:01 05/16/19 25 05/16/2024 drug scree n, urine Inhalants: negati ve Not Available [facility] [address], [place], [address], 05/16/2024 11:41:01 05/16/19 25 05/16/2024 drug scree n, urine Anabolic Steroids: negati ve Not Available [place] [address], [place], [address], 05/16/2024 11:41:01 04/20/19 25 04/20/2024 US, obste tric, 1st trime ster No observ ation record ed. [email or web address] [address], [place], [address], 04/20/2024 14:10:26 05/16/19 25 05/16/2024 US, obste tric, nucha l trans lucen cy No observ ation record ed. [email or web address] [place] [address], [place], [address], 05/16/2024 13:05:59 05/16/19 25 05/16/2024 US, obste tric, nucha l trans lucen cy No observ ation record ed. [email or web address] [address], [place], [address], 05/17/2024 22:28:37 07/12/19 25 07/11/2024 US, obste tric, follo w-up No observ ation record ed. [email or web address] [place] [address], [place], [address], 07/12/2024 22:59:07 07/12/19 25 07/11/2024 US, obste tric, 2nd or 3rd trime ster No observ ation record ed. [email or web address] [address], [place], [address], 07/12/2024 22:31:30 Result Notes None recorded. Problems Name Problem SNOMED Code Status Onset Date Resolution Date Notes Provider Name and Address Organization Details Recorded Time Educatio n Completed 201708/01/2020 Encounte r for oth general cnsl and advice on contrace ption;Pr actice ID: 0001 Janis Loaiza [facility] 17:54:18 Infectio n screenin g Completed 201708/01/2020 Encounte r for screenin g for oth infec/pa rastc diseases ;Practic e ID: 0001 Janis brandon [facility] 17:54:20 Syphilis test finding [id number] Completed 201708/01/2020 Encntr screen for infectio ns w sexl mode of transmis s;Record ed Elsewher e: No Locat ion: [facility] S ource: EHR Program Evaluator campos: N Practi ce ID: [id number] Lee lable Time: 09:45:00 AM Janis barndon [facility] 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 17:54:26 Abnormal weight gain [id number] Completed 201808/01/2020 Abnormal weight gain;Rec orded Elsewher e: No Locat ion: [place] [facility] S ource: EHR Program Evaluator campos: N Braulioti ce ID: [id number] Lee lable Time: 10:45:00 AM Janis brandon, [facility] 17:54:14 Vaginola bial hernia Completed 201808/01/2020 Other specifie d noninfla mmatory disorder s of vagina;P ractice ID: 0001 Janis brandon, [facility] 17:54:[address] Concept Completed 201808/01/2020 Encounte r for surveill ance of other contrace ptives;P ractice ID: 0001 Janis Loaiza [facility], [facility] 17:54:27 Acute vaginiti s [id number] Completed 201908/01/2020 Acute vaginiti s;Practi ce ID: 0001 Janis brandon, [facility] 17:54:16 Insertio n of subcutan eous contrace ptive Completed 201808/01/2020 Enctr for init prescrip tion of implntbl subderma l contrace p;Record ed Elsewher e: No Locat ion: [place] [facility] S ource: EHR Program Evaluator campos: N Braulioti ce ID: [id number] Lee lable Time: 11:15:00 AM Janis brandon, [facility] 17:54:[address] Concept Completed 201708/01/2020 Encntr for routine child health exam w/o abnormal findings ;Recorde d Elsewher e: No Locat ion: [place] [facility] S ource: EHR Program Evaluator campos: N Practi ce ID: 0001 Lee lable Time: 09:45:00 AM Janis Loaiza [facility] 17:54:25 Contrace ption care manageme nt Completed 201808/01/2020 Encounte r for contrace ptive manageme nt, unspecif ied;Jase rded Elsewher e: No Locat ion: [facility] S ource: EHR Program Evaluator campos: N Practi ce ID: 0001 Lee lable Time: 10:45:00 AM Janis Loaiza [facility] 17:54:[address] Concept Completed 201808/01/2020 Encntr for general adult medical exam w/o abnormal findings ;Recorde d Elsewher e: No Locat ion: [facility] S ource: EHR Program Evaluator campos: N Practi ce ID: 0001 Lee lable Time: 10:45:00 AM Janis Loaiza [facility], [facility] 17:54:23 Pregnanc y [id number] Active 2024 Stacybaylee Balesen [facility], [facility] 5 11:21:46 Asthma [id number] Active well controll ed on AirDuo and [place] ast, rare albutero l use CLAUDIA BENDER MD [address], [place], [address], [facility] 5 22:13:30 Rubella non-immu ne [id number] Active CLAUDIA BENDER MD [address], [place], [address], [facility] 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 5 22:29:59 Herpes simplex 23436449 Active HSV1 Kaity brandon, [facility] 5 22:29:59 Problem Notes None recorded. Procedures Surgical History Date Name Laterality Status Provider Name and Address Organization Details Recorded Time 07/21/19 24 Date of Last Pap Smear completed Stacy Cobb [facility] 02/23/2024 15:45:51 05/08/19 24 termination of completed Jessica Tyler [facility] 07/21/2023 16:43:29 04/28/19 23 Control Implant Removal completed Sneha Peña [facility] [address], [place], [address], [facility] 04/28/2022 17:49:40 09/03/19 22 Control Implant Removal completed Sneha Peña [facility] [address], [place], [address], [facility] 09/02/2021 13:33:14 09/03/19 22 Control Implant Insertion completed Sneha Peña [facility] [address], [place], [address], [facility] 09/02/2021 13:33:30 04/19/19 18 Tonsillectomy completed Eliza Bell [facility] 07/11/2024 12:31:48 Imaging Results Imaging Date Name Status LastModified by Organization Details LastModified Time 04/20/2024 US, obstetric, 1st trimester completed [email or web address] [address], [place], [address], 04/20/2024 14:10:26 05/16/2024 US, obstetric, nuchal translucency completed [email or web address] [place], [address], 05/16/2024 13:05:59 05/16/2024 US, obstetric, nuchal translucency completed [email or web address] [address], [place], [address], 05/17/2024 22:28:37 07/11/2024 US, obstetric, follow-up completed [email or web address], [place], [address], 07/12/2024 22:59:07 07/11/2024 US, obstetric, 2nd or 3rd trimester completed [email or web address] [address], [place], [address], 07/12/2024 22:31:30 Procedure Notes None recorded. Medical Equipment None Reported. Allergies Allergen ID Allergen Name Allergen Category Reaction Reaction Severity Criticality Documentation Date Start Date Code Code System Note Provider Name and Address Organization Details Recorded Time 87245 amoxicill in medicatio n Not available Not available Not available 04/05/2020 723 RxNorm Comme nt: [facility]at [facility]; Not Available [facility] 0 14:17:51 72350 fluticaso ne Not available Not available Not available Not available 05/03/2020 72589 RxNorm Valery [facility] 1 14:24:28 68223 Flovent medicatio n Not available Not available Not available 08/02/2020 94098 2 RxNorm Valery Escobar [facility] 1 14:24:39 74832 Substance with sulfonami de structure and antibacte rial mechanism of action (substanc e) medicatio n Not available Not available Not available 02/23/2024 10312 8003 SNOMED Stacy Cobb [facility] 4 15:45:13 Medications Name Sig Start Date Stop Date Status Note LastModified by Organization Details LastModified Time cyclobenz aprine 10 mg tablet TAKE 1 TABLET BY MOUTH THREE TIMES A DAY NEEDED FOR MUSCLE SPASMS 08/22 completed Not Available Not Available Not Available clindamyc in HCl 300 mg capsule Take 1 capsule every 12 hours by oral route for 7 days. 05/31 completed Not Available Not Available Not Available triamcino lone acetonide 0.5 % topical cream APPLY A THIN LAYERS TO THE AFFECTED AREA(S) ON THE SKIN TWICE DAY 10/28 completed Not Available Not Available Not Available fluconazo le 150 mg tablet TAKE 1 TABLET BY MOUTH FOR 1 DAY 02/22 completed Not Available Not Available Not Available fluconazo le 200 mg tablet TAKE 1 TABLET BY MOUTH EVERY OTHER DAY X 3 DOSES. 07/20 completed Not Available Not Available Not Available sumatript an 25 mg tablet TAKE 1 TABLET BY MOUTH ONCE FOR HEADACHE . MAY REPEAT IN 2 HOURS IF NO RELIEF. MAX 3TABS/24 HRS 10/28 completed Not Available Not Available Not Available topiramat e 25 mg tablet TAKE 2 TABLETS BY MOUTH EVERY DAY FOR 30 DAYS 04/28 completed Not Available Not Available Not Available sulfameth oxazole 800 mg-trimet hoprim 160 mg tablet TAKE 1 TABLET BY MOUTH EVERY 12 HOURS FOR 7 DAYS 02/22 completed Not Available Not Available Not Available omeprazol e 40 mg capsule,d elayed release TAKE 1 CAPSULE BY MOUTH EVERY DAY IN THE MORNING 10/28 completed Not Available Not Available Not Available triamcino lone acetonide 0.1 % topical cream APPLY THIN COAT TO AFFECTED AREA TWICE A DAY 05/16 completed Not Available Not Available Not Available lamotrigi ne 25 mg tablet TAKE 1 TABLET BY MOUTH EVERY DAY 07/20 completed Not Available Not Available Not Available Flagyl 500 mg tablet take 1 tablet by oral route every 12 hours 06/15 completed Prescrib ed [facility] e: No Locat ion: [facility] odify By: [email or web address] ich Enco unter DateTime : 06/09/19 01:53:48 PM Not Available Not Available Not Available docusate sodium 100 mg capsule 04/28 completed Not Available Not Available Not Available omeprazol e 20 mg capsule,d elayed release TAKE 1 CAPSULE BY MOUTH EVERY DAY IN THE MORNING 10/28 completed Not Available Not Available Not Available monteluka st 10 mg tablet TAKE 1 TABLET BY MOUTH EVERY DAY active Not Available Not Available No t Available hydroxyzi ne HCl 25 mg tablet TAKE 1 TABLET BY MOUTH THREE TIMES A DAY NEEDED active Not Available Not Available No t Available mupirocin 2 % topical ointment APPLY TOPICALL Y TWICE DAILY FOR 7 DAYS 02/22 completed Not Available Not Available Not Available ibuprofen 600 mg tablet TAKE 1 TABLET BY MOUTH EVERY 6 HOURS NEEDED FOR PAIN 04/28 completed Not Available Not Available Not Available levofloxa taran 500 mg tablet TAKE 1 TABLET BY MOUTH EVERY DAY FOR 6 DAYS 02/22 completed Not Available Not Available Not Available albuterol sulfate HFA 90 mcg/actua tion aerosol inhaler TAKE 2 PUFFS BY MOUTH EVERY 4 HOURS NEEDED active Not Available Not Available No t Available cefdinir 300 mg capsule TAKE 1 CAPSULE BY MOUTH TWO TIMES A DAY FOR 7 DAYS. 04/28 completed Not Available Not Available Not Available spironola ctone 50 mg tablet TAKE 1 TABLET BY MOUTH EVERY DAY FOR 30 DAYS 10/28 completed Not Available Not Available Not Available azithromy taran 500 mg tablet TAKE 1 TABLET BY MOUTH EVERY DAY WITH A MEAL FOR 5 DAYS 05/16 completed Not Available Not Available Not Available escitalop karena 10 mg tablet TAKE 1 TABLET BY MOUTH EVERY DAY FOR 30 DAYS 07/20 completed Not Available Not Available Not Available nitrofura ntoin monohydra te/macroc rystals 100 mg capsule Take 1 capsule every 12 hours by oral route with meals for 7 days. 10/28 completed Not Available Not Available Not Available boric acid (bulk) 04/28 completed Not Available Not Available Not Available Nexplanon 68 mg subdermal implant insert 1 not specifie d by intramus cular route every time for 3 years 10/28 completed Prescrib ed Elsewher e: No^Stop Date: [id number] Locatio n: [facility] M odify By: [email or web address] Encount er DateTime : 09/09/19 11:15:00 AM Not Available Not Available Not Available Flonase Allergy Relief 50 mcg/actua tion nasal spray,elias pension Dud[place] 1 spray every day by intranas al route. 04/28 completed Not Available Not Available Not Available Nuvessa 1.3 % (65 mg/5 gram) vaginal gel Insert 1 applicat orful by vaginal route at bedtime for 1 day. 10/283 completed Not Available Not Available Not Available fluticaso ne 113 mcg-salme terol 14 mcg/actua tion breath activated powdr TAKE 1 PUFF BY MOUTH TWICE A DAY 08/22 completed Not Available Not Available Not Available AirDuo RespiClic k 232 mcg-14 mcg/actua tion breath activated INHALE 1 PUFF INTO THE LUNGS TWICE A DAY active Not Available Not Available No t Available albuterol sulf 90 mcg/actua tion breath activated powder inhaler,s ensor Inhale 2 puffs every 4 hours by inhalati on route. 10/24 completed Not Available Not Available Not Available Vitals Date Recorded Body height Body mass index (BMI) Body weight Systolic blood pressure Diastolic blood pressure Provider Name and Address Organization Details Last Updated DateTime 05/16/2024 162.56 cm 33 kg/m2 77587.74 g 116 mm[Hg] 80 mm[Hg] Stacy Cobb [facility] 11:12:59 Date Recorded Body height Body mass index (BMI) Body weight Systolic blood pressure Diastolic blood pressure Provider Name and Address Organization Details Last Updated DateTime 06/13/2024 162.56 cm 33.6 kg/m2 44079.10 452 g 110 mm[Hg] 72 mm[Hg] Stacy Cobb [facility] 14:47:21 Date Recorded Body weight Body mass index (BMI) Body height Systolic blood pressure Diastolic blood pressure Provider Name and Address Organization Details Last Updated DateTime 07/11/2024 29888.47 4 g 34.3 kg/m2 162.56 cm 124 mm[Hg] 78 mm[Hg] Eliza Bell [facility] 12:39:50 Social History Question Answer Notes LastModified by Organizat ion Details LastModified Time Tobacco Smoking Status Former [facility] 05/04/2020 11:50:47 What Is Your Level Of Alcohol Consumption? None Information not available 07/11/2024 If You Are , What Was Your Level Of Alcohol Consumption Prior To ? Occasional [email or web address] Information not available 07/11/2024 How Many Years Have You Consumed Alcohol? 4 Information not available 05/04/2020 Are You Blind Or Do You Have Difficulty Seeing? No Information not available 10/24/2020 What Is Your Level Of Caffeine Consumption? Moderate Information not available 05/04/2020 In The 14 Days Before Symptom Onset, Have You Had Close Contact With A Laboratory-confir med COVID-19 While That Case Was Ill? No Information not available 10/28/2022 In The 14 Days Before Symptom Onset, Have You Had Close Contact With A Person Who Is Under Investigation For COVID-19 While That Person Was Ill? No Information not available 10/28/2022 Have You Been To An Area Known To Be High Risk For COVID-19? No Information not available 10/28/2022 Are You Deaf Or Do You Have Serious Difficulty Hearing? No Information not available 10/24/2020 What Type Of Diet Are You Following? REGULAR Information not available 10/24/2020 Which Illicit Or Recreational Drugs Have You Used? WEED Information not available 05/04/2020 Do You Or Have You Ever Used E-cigarettes Or Vape? Current User Of Electronic Cigarettes Information not available 05/04/2020 How Many Days Of Moderate To Strenuous Exercise, Like A Brisk Walk, Did You Do In The Last 7 Days? 4 Information not available 05/04/2020 On Those Days That You Engage In Moderate To Strenuous Exercise, How Many Minutes, On Average, Do You Exercise? 60 Information not available 05/04/2020 When Did You Quit Smoking? 1-5yearssincel astcigarette Information not available 05/04/2020 How Many Years Have You Used Illicit Or Recreational Drugs? 3 Information not available 05/04/2020 Have You Ever Been Counseled For Unhealthy Alcohol Use? No Information not available 05/04/2020 Do You Use Protection During Sex? Usually Information not available 10/24/2020 Do You Use Your Seat Belt Or Car Seat Routinely? Yes Information not available 10/24/2020 Are You Sexually Active? Yes Information not available 10/24/2020 Do You Have Smoke And Carbon Monoxide Detectors In Your Home? Yes Information not available 10/24/2020 At What Age Did You Start Smoking Tobacco? 15 Information not available 05/04/2020 Do You Or Have You Ever Used Smokeless Tobacco? Never Used Smokeless Tobacco Information not available 05/04/2020 Do You Feel Stressed (tense, Restless, Nervous, Or Anxious, Or Unable To Sleep At Night)? [id number] Information not available 10/24/2020 Do You Use Any Illicit Or Recreational Drugs? Yes Information not available 05/04/2020 Do You Use Sunscreen Routinely? Yes Information not available 10/24/2020 Has Tobacco Cessation Counseling Been Provided? No Information not available 05/04/2020 How Many Years Have You Smoked Tobacco? 3 Information not available 05/04/2020 Have You Used IV Drugs? No Information not available 05/04/2020 Do You Or Have You Ever Used Any Other Forms Of Tobacco Or Nicotine? Yes Information not available 05/04/2020 How Many Days In The Past Year Have You Consumed 4 Or More Drinks? 4 Information no t available 05/04/2020 How Many Years Have You Used E-cigarettes Or Vape? 3 Information not available 05/04/2020 Sex: Unknown Functional Status Question Answer Note LastModified by Organizat ion Details LastModified Time Do you have difficulty walking or climbing stairs? No Information not available 08/22/2021 Are you able to walk? YESWOREST Information not available 10/24/2020 Are you able to care for yourself? Yes Information not available 08/22/2021 Do you have difficulty dressing or bathing? No Information not available 08/22/2021 What is your exercise level? Heavy Information not available 05/04/2020 Mental Status None recorded. Family History Relationship Description Onset Age of this Age Resolved Age Notes LastModified by Organization Details LastModified Time Mother Carcinoma in situ of lung Not available 15:31:00 Mother Malignant tumor of ovary Not available 2020 15:31:21 Paternal Grandmother Diabetes mellitus Not available 2020 15:31:06 Maternal Grandfather Hypertensive disorder Not available 2020 15:31:13 Medical History Condition Response Allergies (Food, seasonal, environmental ) Y Other N Breast Cancer N Drug/Latex Allergies/Reactions Y Blood Transfusion N Dermatologic Disorders N Lung Disease N Defects or Inherited Disease N Breast Problem N Gestational Diabetes N Hematologic disorders N Anesthesia Complications N History of STI Y Deep Vein Thrombosis N Polycystic ovary syndrome N Anxiety Disorder Y Autoimmune disease N Arthritis N Infertility N Polyps N Acid Reflux (GERD) N History of abnormal pap N Cancer N Stroke N Varicosities N Neurologic/Epilepsy N Endometriosis N High Cholesterol N Headaches N Fibromyalgia N Kidney Disease N Heart Problems N Kidney or Bladder Problems N Thyroid Problems N GI Problems N Eating Disorder N Anemia N Art (IVF or FET) N Psychiatric Illness N Ovarian Cancer N Diabetes N Pulmonary (TB, Asthma) N Hepatitis/Liver Disease N No Past Medical History N Eczema N Urinary Tract Infection N Abuse/Domestic Violence N Asthma Y Trauma/Violence N Depression/ depression Y Heart Disease N Pre-Eclampsia N Hypertension N Osteoporosis N Thrombophilias N Gynecological History Statement/Question Response Abnormal Pap N Date of Last Mammogram Flow Moderate Date of LMP 02/21/2024 Was last menstrual period normal Y STIs/STDs Y HPV Vaccine Y Duration of Flow (days) 4 Current Control Method None Are cycles usually normal Y Date of Last Colonoscopy Frequency of Cycle (Q days) 28 Most Recent Bone Density Sexually Active? Y Menses Monthly Y Date of DEXA bone scan Age of first menstrual cycle 10 Date of Last Pap Smear 07/21/2023 Sexual Problems? N Desired Control Method Other LMP Definite Obstetrics History GPAL:G 2 P 0 0 1 0 Type Value Induced 1 Living 0 Total 2 Past Encounters Encounter ID Performer Location Encounter Start Date Encounter Closed Date Diagnosis/Indication Diagnosis SNOMED-CT Code Diagnosis ICD10 Code Diagnosis Note [id number] ESTHER [facility] [address] [address] 05/04/2020 11:41:44 05/08/2020 11:06:12 Vaginitis 61979351 N76.0 We agreed to trial of 3mos of vaginal boric acid to help reset pH. In depth review/cou nsel of VCG sheet. List of VCG's given & will make other necessary changes. Will contact with results of Ext BV/Yeast panel. If we are not able to improve or resolve this issue consider referral to [facility] vulvar clinic. RTO x 3mos med check Time spent in visit is a total of 26 mins with at least 50% of visit consisting of counseling and review of plan of care. [id number] Sneha Peña [facility] [address] [address] 05/31/2020 11:44:00 05/31/2020 12:16:36 Gynecologic examination 41896172 Z01.419 Take Calcium with Vitamin D 1200mg daily if not receiving in daily diet. It is strongly advised to have an annual flu shot and up can obtain at most pharmacies . If you have not had a TDap shot in the last 10 years you should obtain one as well. Discussed with patient & provided with informatio n regarding Gardisil vaccine to prevent the 4 strains for HPV that cause cervical cancer. Encourage safe sexual practices, to use condoms and limit partners if not already in a monogamous relationsh ip. Do monthly self breast exams. BRCA testing is now available for patients with strong genetic history of female cancer. If interested contact the office. Engage in daily exercise of low impact aerobic exercise 45-60 minutes 4-5 times weekly. Avoid tobacco, illicit drugs, and alcohol. This lifestyle behavior pattern will lead to less health conditions and longer life span. If BMI greater than 25 weight watchers or dietary consult advised. Pap smear is not recommende d prior to the age of 21. If you have any concerns, pelvic, or vaginal problems we can discuss testing. Patient received above instructio ns, and questions have been answered. If you have any questions please call or respond to this email. Patient was made aware of the patient portal and may obtain a paper copy of today's plan if desired. Primary pap next year Vaginitis 84085242 N76.0 Continue vaginal boric acid regimen for another 3-6mos (use 2x a week) Samples given but can also buy off [employer]. Follow VCG's. RTO if issues [id number] Sneha Peña [facility] [address],[facility] [place] [address] 08/02/2020 13:50:46 08/02/2020 14:33:32 Vaginitis 99413775 N76.0 Doing well on BA therapy. Will continue Prn use at this point. No further questions or concerns. F/U x 1yr WWE with pap or prn. Time spent in visit is a total of 15 mins with at least 50% of visit consisting of counseling and review of plan of care. Additional precaution elma measures were taken to minimize potential exposure to the Covid-19 virus during this patient s visit, including available hand marketing operations consultant upon arrive, temperatur e check and being asked a series of screening questions. All staff wore face coverings during this encounter, as well as provided additional cleaning and sanitizing of all surfaces, including countertop s, pens, chairs, door handles, light switches, etc, prior to and following the patient s visit. [id number] Sneha Peña , [facility] [address],[place] [address] 08/22/2021 15:21:31 09/03/2021 15:59:17 Gynecologic examination 17744375 Z01.419 Take Calcium with Vitamin D 1200mg daily if not receiving in daily diet. It is strongly advised to have an annual flu shot and up can obtain at most pharmacies . If you have not had a TDap shot in the last 10 years you should obtain one as well. Discussed with patient & provided with informatio n regarding Gardisil vaccine to prevent the 4 strains for HPV that cause cervical cancer. Encourage safe sexual practices, to use condoms and limit partners if not already in a monogamous relationsh ip. Do monthly self breast exams. BRCA testing is now available for patients with strong genetic history of female cancer. If interested contact the office. Engage in daily exercise of low impact aerobic exercise 45-60 minutes 4-5 times weekly. Avoid tobacco, illicit drugs, and alcohol. This lifestyle behavior pattern will lead to less health conditions and longer life span. If BMI greater than 25 weight watchers or dietary consult advised. Pap smear is not recommende d prior to the age of 21. If you have any concerns, pelvic, or vaginal problems we can discuss testing. Patient received above instructio ns, and questions have been answered. If you have any questions please call or respond to this email. Patient was made aware of the patient portal and may obtain a paper copy of today's plan if desired. Pap sent STD Screen sent Genetic Screen discussed Colon Screen na Dexa Screen na Routine Labs na Pain in pelvis 82710961 R10.2 Update TVUS with F/U Contracept ion care management 786032309 Z30.9 Due for nexplanon removal/re insertion which may help with period cramping that has returned.W ill schedule [id number] Merari Elsie [facility] [address] [address] 08/27/2021 16:22:30 08/27/2021 17:11:19 Pain in pelvis 37017274 R10.2 [id number] Sneha Peña [facility] [address] [address] 09/02/2021 12:55:24 09/02/2021 13:24:15 Screening procedure 57888637 Z13.9 Cyst of right ovary 1223 445971 8256930 N83.201 TVUS ordered for r/p TVUS x 8wksDiscus sed TVUS current with all questions answeredUn don olivares verbalized . Removal of subcutaneous contraceptive 425242468 Z30.46 Removal site was cleansed with betadine and 3cc of lidocaine used for anesthesia . Device was removed in normal fashion without difficulty . Steri stips and pressure bandage placed. Insertion of subcutaneous contraceptive 322318626 Z30.9 Patient is here currently on her menses. She was given all the r/b/a of placement of the Nexplanon device and has signed the consent. She is fully aware of all possible side effects of the device and has decided to move forward with placement. Insertion site was cleansed with betadine and 3cc lidocaine used for anesthesia . Device was placed in the left arm per usual fashion w/o complicati on and patient instructed to f/u in one month or earlier if there are any si/sx of infection or hypersensi tivity at the insertion site Binge eating disorder 43 1812163 F50.81 Has a counselor but discussed resources specialize in ED'sWill send this to her in the mailIf needs any further help with referrals please contact our office.Sug gested team that specialist in ED s: Counselors /Maintenance Repairman /Psychiatr istSeeing counselor now. [id number] Adwoa Escobar [facility] [address],[place] [address] 10/28/2021 12:20:14 10/28/2021 13:33:45 Cyst of right ovary 4825207594 1090263 N83.291 [id number] Sneha Peña [facility] [address],[place] [address] 04/28/2022 14:57:33 04/29/2022 15:17:38 Urinary symptoms 170382496 R39.9 wnl Removal of subcutaneous contraceptive 866879720 Z30.46 Removal site was cleansed with betadine and 3cc of lidocaine used for anesthesia . Device was removed in normal fashion without difficulty . Steri stips and pressure bandage placed. Vaginitis 25875767 N76.0 Suspect BV on examSample of Nuvessa givenWorke d well for her last time she used it.Swab sent to confirm per pt request Time spent in visit is a total of 15 mins with at least 50% of visit consisting of counseling and review of plan of care not including time spent on procedure. [id number] Sneha Peña [facility] [address],[place] [address] 2022 10:59:15 2022 11:44:10 Urinary symptoms 031812346 R39.9 Urinen cx sentSTD sent for new sexual partnerRx sent Counseled on medication R/B's, Most common side effects, & use. All questions were answered to patient satisfacti on. Time spent in visit is a total of 15 mins with at least 50% of visit consisting of counseling and review of plan of care. [id number] Sneha Peña [facility] [address],[place] [address] 10/28/2022 18:22:44 10/29/2022 10:44:24 Sexually transmitted infectious disease 5656676 A64 Updated std screen sentSwab & serumwill reach out with resultsNew partner Time spent in visit is a total of 15 mins with at least 50% of visit consisting of counseling and review of plan of care. Vaginitis 43187951 N76.0 Suspect yeast on examRx sent Counseled on medication R/B's, Most common side effects, & use. All questions were answered to patient satisfacti on. [id number] [facility] [address] [address] 07/21/2023 16:18:58 07/21/2023 17:00:51 Gynecologic examination 35697290 Z01.419 Z11.3 Z11.8 Take Calcium with Vitamin D 1200mg daily if not receiving in daily diet. It is strongly advised to have an annual flu shot and up can obtain at most pharmacies . If you have not had a TDap shot in the last 10 years you should obtain one as well. Discussed with patient & provided with informatio n regarding Gardisil vaccine to prevent the 4 strains for HPV that cause cervical cancer. Encourage safe sexual practices, to use condoms and limit partners if not already in a monogamous relationsh ip. Do monthly self breast exams. BRCA testing is now available for patients with strong genetic history of female cancer. If interested contact the office. Engage in daily exercise of low impact aerobic exercise 45-60 minutes 4-5 times weekly. Avoid tobacco, illicit drugs, and alcohol. This lifestyle behavior pattern will lead to less health conditions and longer life span. If BMI greater than 25 weight watchers or dietary consult advised. Pap smear is not recommende d prior to the age of 21. If you have any concerns, pelvic, or vaginal problems we can discuss testing. Patient received above instructio ns, and questions have been answered. If you have any questions please call or respond to this email. Patient was made aware of the patient portal and may obtain a paper copy of today's plan if desired.Bruce mckeon sentSTD Screen sentGeneti c Screen discussedC olon Screen naDexa Screen [facility] na [id number] CLAUDIA BENDER MD [facility] [address] [address] 02/23/2024 15:38:34 02/23/2024 16:43:39 Pain in pelvis 32735591 R10.2 - patient reports 2-3 month hx of deep dyspareuni a, dyschezia, and intermitte nt dysuria- also reports somewhat irregular periods for the past 2-3 months- was previously on Nexplanon x6 years, no periods with Nexplanon- discussed possible diagnosis of endometrio sis, though cannot definitive ly diagnose without surgery- discussed treatment with progestero ne therapy- will order pelvic US and labs to rule out other etiology Pain assoc iated with defecation [id number] K62.89 [id number] [facility] [address],[place] [address] 03/08/2024 16:52:37 03/09/2024 12:40:04 Irregular periods [id number] N92.6 [id number] [facility] [address],[place] [address] 04/20/2024 10:25:29 04/20/2024 11:00:40 [id number] CLAUDIA BENDER MD [facility] [address],[place] [address] 04/20/2024 10:25:43 04/20/2024 11:22:58 test positive [id number] Z32.01 1. Exam today within normal limits.2. Ultrasound today confirms GA and viability. EDC . GC/Clamydi a testing done: will f/u as indicated. 4. ACOG guidelines and plan of care for reviewed with patient. All questions answered.5 . Return to office at 12 weeks for new OB visit6. Will need new OB labs at next visit.7. Genetic screening: desires. Asthma in 7230 [id number] J45.909 - well controlled on montelukas t and AirDuo; does have rescue inhaler but does not use often [id number] [facility] [address],[place] [address] 05/16/2024 10:19:38 05/16/2024 11:07:39 screening [id number] Z36.82 Z3A.12 [id number] CLAUDIA BENDER MD [facility] [address],[place] [address] 05/16/2024 10:19:48 05/17/2024 14:07:08 screening 901348045 Z36.0 Genetic in vestigation procedure 09090012 Z31.430 Gestation period, 12 weeks 26302388 Z3A.12 Asthma in 7230 456856 1101 J45.909 - well controlled on montelukas t and AirDuo; does have rescue inhaler but does not use often [id number] CLAUDIA BENDER MD [facility] [address],[place] [address] 06/13/2024 14:35:38 06/13/2024 15:22:21 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 Asthma 291817022 J45.90 9 - well controlled on DuoNeb and montelukas t- continue to monitor Gestation period, 16 weeks 93331310 Z3A.16 - continue PNV [id number] Carmela Cooper [facility] [address],[place] [address] 07/11/2024 11:24:21 07/11/2024 12:59:51 screening for malformation 812992132 Z36.3 Z3A.20 [id number] [facility] [address],[place] [address] 07/11/2024 11:24:32 07/12/2024 09:45:02 Gestation period, 20 weeks 64093228 Z3A.20 continue vitamin Health Concerns Section Related Observation LastModified by Organization Detai ls LastModified Time None Recorded Concern Status LastModified by Organization Details LastModified Time None Recorded Advance Directives Directive None Recorded Payers Encounter Date Sequence Insurance Name Policy Number Policy Odonnell Covered Member ID Odonnell Member ID Guarantor Name 05/16/2024 1 [facility] (MEDICAID HMO) [id number] Sandra Perdue [id number] Sandra Perdue 05/16/2024 1 [facility] (MEDICAID HMO) [id number] Sandra Perdue [id number] Sandra Perdue 06/13/2024 1 [facility] (MEDICAID HMO) [id number] Sandra Pedrue [id number] Sandra Perdue 07/11/2024 1 [facility] (MEDICAID HMO) [id number] Sandra Perdue [id number] Sandra Ziegler Short 07/11/2024 1 [facility] (MEDICAID HMO) [id number] Sandra Perdue [id number] Sandra Perdue OBGyn Episode Ob Episode Information Episode Created Date Number of Fetuses Patient Bloodtype Patient rh Status Prepregnancy Weight lbs Domestic Partner Domestic Partner Phone Father Name Veterinary Practitioner Status 07/21/19 24 1 CLOSED Fetus Data First Name Last Name Admitted to NICU Weight (g) Sex Living Outcome Pediatric Complications Fetus ID Race Codes Race Delivery Type , Induced [id number] Attila Calculation Initial Attila Date Initial Exam Date Initial Exam Provider Initial Ultrasound Date Last Menstrual Period Date Ultra Sound Weeks Gestation 0 Eighteen To Twenty Week Attila Update Ultra Sound Date Fundal Height At Umbil Quickening Date Ultra Sound Latest Weeks Gestation Final Attila Confirmed By Final Attila Confirmed Date Final Attila Date Ultra Sound Latest Days Gestation 0 0 Menstrual History Last Menstrual Date Menses Monthly On Bcp Conception Prior Menses Frequency Hcg Plus Date Menarche Onset Age Delivery Information Delivery Date Delivery Type Labor Anesthesia Weeks Gestation Incision Type Labor Labor Length Hrs Delivered By Post Complications Tubal Sterilization Discharge Date Comments 4 Discharge Information Feeding Method Contraceptive Method Maternal HG B and HCT Levels Ob Episode Information Episode Created Date Number of Fetuses Patient Bloodtype Patient rh Status Prepregnancy Weight lbs Domestic Partner Domestic Partner Phone Father Name Veterinary Practitioner Status 05/16/19 25 1 OPEN Fetus Data First Name Last Name Admitted to NICU Weight (g) Sex Living Outcome Pediatric Complications Fetus ID Race Codes Race Delivery Type [id number] Problems Problem Notes Problem Name Start Date End Date Resolution Snomed Code Not e Asthma [id number] well contr olled on AirDuo and montelukast, rare albuterol use 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 Rubella non-immune [id number] Attila Calculation Initial Attila Date Initial Exam Date Initial Exam Provider Initial Ultrasound Date Last Menstrual Period Date Ultra Sound Weeks Gestation 11/27/2024 05/16/2024 04/20/2024 02/21/2024 8 Eighteen To Twenty Week Attila Update Ultra Sound Date Fundal Height At Umbil Quickening Date Ultra Sound Latest Weeks Gestation Final Attila Confirmed By Final Attila Confirmed Date Final Attila Date Ultra Sound Latest Days Gestation 0 [email or web address] 05/17/2024 11/28/19 25 0 Pre- Flowsheet Flowsheet Date 05/16/2024 Haro Score Blood Edema Fundus Height Fundus Units Glucose Ketones Leukocytes Nitrite Labor Signs Protein Cervic Dilation Cervic Effacement Cervic Station Type Weight in lbs Pre/Post Dialysis Refused Weight 192.051451920798 BP Diastolic BP Location Tested BP Systolic BP Type 80 L arm 116 sitting Fetus Heart Rate Present A Present Fetus Movement Comments Patient presents to [facility] care. complicated by asthma, well controlled. She reports some pleuritic chest pains since Wednesday, some relief with albuterol. Also having some increased migraines, No nausea or cramping. NT/NB wnl today, desires NIPT. Will draw today with new OB labs. RTC 4 weeks for routine care. Flowsheet Date 06/13/2024 Haro Score Blood Edema Fundus Height Fundus Units Glucose Ketones Leukocytes Nitrite Labor Signs Protein Cervic Dilation Cervic Effacement Cervic Station neg none Type Weight in lbs Pre/Post Dialysis Refused 196.950651706084 BP Diastolic BP Location Tested BP Systolic BP Type 72 L arm 110 sitting Fetus Heart Rate Present A 150 Fetus Movement A No Comments Patient c/o of feeling nause ous every morning, along with back pain that shoots down to legs, leaves a lasting ache. Declines medications for nausea. Discussed conservative management vs flexeril for sciatic pain, patient declines meds at this time. LR male NIPT! All other labs wnl aside from rubella nonimmune. Discussed with patient. Discussed anatomy US for next visit. RTC 4 weeks. Flowsheet Date 07/11/2024 Haro Score Blood Edema Fundus Height Fundus Units Glucose Ketones Leukocytes Nitrite Labor Signs Protein Cervic Dilation Cervic Effacement Cervic Station Type Weight in lbs Pre/Post Dialysis Refused BP Diastolic BP Location Tested BP Systolic BP Type Fetus Heart Rate Present Fetus Movement Comments Flowsheet Date 07/11/2024 Haro Score Blood Edema Fundus Height Fundus Units Glucose Ketones Leukocytes Nitrite Labor Signs Protein Cervic Dilation Cervic Effacement Cervic Station neg none Type Weight in lbs Pre/Post Dialysis Refused 200.358532258072 BP Diastolic BP Location Tested BP Systolic BP Type 78 124 Fetus Heart Rate Present Fetus Movement A Yes Comments Patient is having some pelvi c pain, back pain, nausea and vomiting. reviewed anatomy complete, precautions and education f/u 4 weeks Menstrual History Last Menstrual Date Menses Monthly On Bcp Conception Prior Menses Frequency Hcg Plus Date Menarche Onset Age 1102/21/2024 Delivery Information Delivery Date Delivery Type Labor Anesthesia Weeks Gestation Incision Type Labor Labor Length Hrs Delivered By Post Complications Tubal Sterilization Discharge Date Comments Discharge Information Feeding Method Contraceptive Method Maternal HG B and HCT Levels
--- OUTSIDE RECORDS SUMMARY | 2024-08-02 18:15 | XMS_ITS | Data Portability ---
Author Organization [facility] Address [address] [facility] [place] [address] Care Team Providers Care Inspector Raw Quartz Name Role Phone CM BRENNER Primary Care Provider Assessment Encounter Date Assessment Date Assessment LastModified by Organization Details LastModified Time 08/09/2023 08/09/2023 Pt's case was discussed w/resident. Documentation was reviewed, and I agree w/resident's note. Dr. Rascon [email or web address] Not available 08/13/2023 17:32:56 Plan of Treatment Reminders Order Date Submit Date Provider Last Modified By Organization Details Last Modified Time Details Appointments None recorded. Lab Mycobacte rium tuberculo sis stimulate d gamma interfero n, qual, blood 2023 024 [facility], [address] [place] [address], [address], [place], [address], 4 20:09:05 rapid strep group A, throat 2023 024 MAURIZIO In-Office Order, Internal Use Only DO Not Attach Compendium DO Not Attach Compendium, Do Not Delete/merge, [id number] 09:02:59 rapid strep group A, throat 2023 024 MAURIZIO In-Office Order, Internal Use Only DO Not Attach Compendium DO Not Attach Compendium, Do Not Delete/merge, [id number] 09:01:41 streptoco ccus group A, culture, throat 2023 024 [facility], [address] [place] [address], [address], [place], [address], 4 06:17:05 rapid flu (A+B) 2023 024 MAURIZIO In-Office Order, Internal Use Only DO Not Attach Compendium DO Not Attach Compendium, Do Not Delete/merge, [id number] 10:53:04 rapid SARS CoV 2 Ag, QL IA, respirato ry specimen 2023 024 MA[facility]IO In-Office Order, Internal Use Only DO Not Attach Compendium DO Not Attach Compendium, Do Not Delete/merge, [id number] 4 10:53:17 CBC w/ auto diff 2023 024 [facility], [address] [facility], [address], [place], [address], 4 06:19:19 TSH, ultra-sen sitive, serum 2023 024 [facility], [address] [facility], [address], [place], [address], 4 06:19:19 rapid strep group A, throat 2023 024 [facility], [address] [facility], [address], [place], [address], 4 14:25:11 influenza virus A + B + SARS-CoV- 2 (COVID19) Ag panel, rapid IA, upper respirato ry specimen 2023 024 MA[facility]IO In-Office Order, Internal Use Only DO Not Attach Compendium DO Not Attach Compendium, Do Not Delete/merge, [id number] 4 09:10:35 Referral physical therapist referral 2023 024 [email or web address], [address], [place], [address], 4 13:59:06 nutrition ist/dieti kody referral - Pt would like to lose weight and has distorted eating habit's. Is vegetaria n. [address] - Nuritionist, [address] [facility] [place], [address], 00:10:21 otolaryng ologist referral - Pt has lump in throat feeling, and change in voice. 2023 024 [email or web address] Mark Hightower MD, [address] [place] [address] , [place] [address], [place], [address], 4 21:36:27 Procedures None recorded. Surgeries None recorded. Imaging US, thyroid - Possible nodule in L upper lobe thyroid. 2023 024 [email or web address] [facility], [address] [facility] [place], [address], 4 00:10:06 Medication Orders cetirizin e 10 mg tablet 2023 024 [id number], [address] [place], [address], 4 10:37:28 ipratropi um bromide 21 mcg (0.03 %) nasal spray 2023 024 [id number], [address] [place], [address], 4 10:35:56 Chlorasep tic Throat [place] 1.4 % aerosol 2023 024 [id number], [address] [place], [address], 4 10:37:31 Pepcid 20 mg tablet 2023 024 [id number], [address] [place], [address], 10:35:47 Patient TargetsNo targets recorded. Patient Instructions Encounter Date Encounter Id Patient Instructions Last Modified By Organization Details Last Modified Time 04/14/2023 [id number] Telehealth Attending Physician Attestation I personally spoke with the patient along with the resident on the phone. I was physically present for more than 50% of the phone conversation. I have reviewed the documentation and agree with the history, physical findings, work-up, and medical decision making as recorded. Duyen Hameed MD [email or web address] Not available 04/28/2023 09:48:13 07/29/2023 [id number] Quitting Tobacco : Care Instructions [email or web address] Not available 07/29/2023 10:17:52 Attending Physician Addendum I did not personally see or examine the patient with the resident. I was physically present to provide indirect supervision through entire encounter. I have reviewed the documentation and agree with the history, physical findings, work-up, and medical decision making as recorded. Paradise Ruiz MD [email or web address] Not available 08/16/2023 10:53:30 11/24/2023 [id number] A healthy lifestyle: care instructions Not available 11/24/2023 19:49:24 Attending Physician Attestation I did not personally see or examine the patient with the resident. I was physically present to provide indirect supervision through entire encounter. I have reviewed the documentation and agree with the history, physical findings, work-up, and medical decision making as recorded. Duyen Hameed MD [email or web address] Not available 11/29/2023 11:26:59 01/04/2024 [id number] A healthy lifestyle: care instructions [email or web address] Not available 01/05/2024 21:54:36 I was present in the clinic to discuss this patient at the time of the visit. I agree with the documented assessment and plan Abi Figueroa MD [email or web address] Not available 01/04/2024 10:16:08 Reason for Referral Equipment Monitor Phototypesetting/dietitian Refer ral for Obesity Pt would like to lose weight and has distorted eating habit's. Is vegetarian. Referring Physician: Cm Brenner, Micro Paleontologist, Encounter Date: 07/29/2023 Siebel Administrator Referral fo r Feeling of lump in throat Pt has lump in throat feeling, and change in voice. Referring Physician: Cm Brenner, Micro Paleontologist, Encounter Date: 07/29/2023 Physical Therapist Referral for Pain of left ankle joint Left ankle chronic pain. Prior sports injury. No acute trauma. Referring Physician: Nelly Zavala, Micro Paleontologist, Encounter Date: 01/04/2024 Results Created Date Observation Date Name Description Value Unit Range Abnormal Flag Note LastModifiedBy Organization Detail LastModifiedTime 03/26/20 23 03/26/2023 pregn columba test, urine HCG negati ve Not Available In-Office Order Internal Use Only DO Not Attach Compendium DO Not Attach Compendium, Do Not Delete/merge, [id number] 03/26/2023 11:25:03 07/29/19 24 07/30/2023 TSH RFX ON ABNOR MAL TO FREE T4 TSH 1.170 uIU/m L 0.450- 4.500 Not Available [facility] ([facility]) [address] [place], [address], 07/30/2023 06:19:19 07/29/19 24 07/29/2023 CBC WITH DIFFE RENTI AL/PL ATELE T WBC 8.0 x10e3 /uL 3.4-10 .8 Not Available [facility] ([facility]) [address] [place], [address], 07/30/2023 06:19:19 07/29/19 24 07/29/2023 CBC WITH DIFFE RENTI AL/PL ATELE T RBC 4.19 x10e6 /uL 3.77-5 .28 Not Available [facility] ([facility]) [address] [place], [address], 07/30/2023 06:19:19 07/29/19 24 07/29/2023 CBC WITH DIFFE RENTI AL/PL ATELE T hemoglobin 13.6 g/dL 11.1-1 5.9 Not Available [facility] ([facility]) [address] [facility], [place], [address], 07/30/2023 06:19:19 07/29/19 24 07/29/2023 CBC WITH DIFFE RENTI AL/PL ATELE T hematocrit 41.5 % 34.0-4 6.6 Not Available [facility] ([facility]) [address] [facility], [place], [address], 07/30/2023 06:19:19 07/29/19 24 07/29/2023 CBC WITH DIFFE RENTI AL/PL ATELE T MCV 99 fL 79-97 above high normal Not Available [facility] ([facility]) [address] [facility], [place], [address], 07/30/2023 06:19:19 07/29/19 24 07/29/2023 CBC WITH DIFFE RENTI AL/PL ATELE T MCH 32.5 pg 26.6-3 3.0 Not Available [facility] ([facility]) [address] [place], [address], 07/30/2023 06:19:19 07/29/19 24 07/29/2023 CBC WITH DIFFE RENTI AL/PL ATELE T MCHC 32.8 g/dL 31.5-3 5.7 Not Available [facility] ([facility]) [address] [facility], [place], [address], 07/30/2023 06:19:19 07/29/19 24 07/29/2023 CBC WITH DIFFE RENTI AL/PL ATELE T RDW 11.9 % 11.7-1 5.4 Not Available [facility] ([facility]) [address] [place], [address], 07/30/2023 06:19:19 07/29/19 24 07/29/2023 CBC WITH DIFFE RENTI AL/PL ATELE T platelets 308 x10e3 /uL 150-45 0 Not Available [facility] ([facility]) [address] [facility], [place], [address], 07/30/2023 06:19:19 07/29/19 24 07/29/2023 CBC WITH DIFFE RENTI AL/PL ATELE T neutrophils 66 % notest ab. Not Available [facility]) [address] [facility], [place], [address], 07/30/2023 06:19:19 07/29/19 24 07/29/2023 CBC WITH DIFFE RENTI AL/PL ATELE T lymphs 20 % notest ab. Not Available [facility] ([facility]) [address] [facility], [place], [address], 07/30/2023 06:19:19 07/29/19 24 07/29/2023 CBC WITH DIFFE RENTI AL/PL ATELE T monocytes 8 % notest ab. Not Available [facility]) [address] [facility], [place], [address], 07/30/2023 06:19:19 07/29/19 24 07/29/2023 CBC WITH DIFFE RENTI AL/PL ATELE T eos 4 % notest ab. Not Available [facility]) [address] [facility], [place], [address], 07/30/2023 06:19:19 07/29/19 24 07/29/2023 CBC WITH DIFFE RENTI AL/PL ATELE T basos 1 % notest ab. Not Available [facility]) [address] [facility], [place], [address], 07/30/2023 06:19:19 07/29/19 24 07/29/2023 CBC WITH DIFFE RENTI AL/PL ATELE T neutrophils (absolute) 5.3 x10e3 /uL 1.4-7. 0 Not Available [facility]) [address] [facility], [place], [address], 07/30/2023 06:19:19 07/29/19 24 07/29/2023 CBC WITH DIFFE RENTI AL/PL ATELE T lymphs (absolute) 1.6 x10e3 /uL 0.7-3. 1 Not Available [facility]) [address] [facility], [place], [address], 07/30/2023 06:19:19 07/29/19 24 07/29/2023 CBC WITH DIFFE RENTI AL/PL ATELE T monocytes(ab solute) 0.7 x10e3 /uL 0.1-0. 9 Not Available [facility]) [address] [facility], [place], [address], 07/30/2023 06:19:19 07/29/19 24 07/29/2023 CBC WITH DIFFE RENTI AL/PL ATELE T eos (absolute) 0.3 x10e3 /uL 0.0-0. 4 Not Available [facility] ([facility]) [address] [facility], [place], [address], 07/30/2023 06:19:19 07/29/19 24 07/29/2023 CBC WITH DIFFE RENTI AL/PL ATELE T baso (absolute) 0.1 x10e3 /uL 0.0-0. 2 Not Available [facility] ([facility]) [address] [facility], [place], [address], 07/30/2023 06:19:19 07/29/19 24 07/29/2023 CBC WITH DIFFE RENTI AL/PL ATELE T immature granulocytes 1 % notest ab. Not Available [facility] ([facility]) [address] [place], [address], 07/30/2023 06:19:19 07/29/19 24 07/29/2023 CBC WITH DIFFE RENTI AL/PL ATELE T immature grans (abs) 0.1 x10e3 /uL 0.0-0. 1 Not Available [facility] ([facility]) [address] [facility], [place], [address], 07/30/2023 06:19:19 08/10/19 24 08/13/2023 BETA STREP GP A CULTU RE beta strep gp A culture Negati ve Refer ence Range : Negat buffy Not Available [facility] ([facility]) [address] [facility], [place], [address], 08/13/2023 06:17:05 08/10/19 24 08/10/2023 rapid strep group A, throa t Strep negati ve Not Available In-Office Order Internal Use Only DO Not Attach Compendium DO Not Attach Compendium, Do Not Delete/merge, [id number] 08/09/2023 15:47:29 08/10/19 24 08/10/2023 rapid strep group A, throa t Strep negati ve Not Available In-Office Order Internal Use Only DO Not Attach Compendium DO Not Attach Compendium, Do Not Delete/merge, [id number] 08/09/2023 16:17:12 08/11/19 24 08/11/2023 rapid SARS CoV 2 Ag, QL IA, respi rator y speci men rapid SARS CoV 2 Ag, QL IA, respiratory specimen negati ve Not Available In-Office Order Internal Use Only DO Not Attach Compendium DO Not Attach Compendium, Do Not Delete/merge, [id number] 08/09/2023 16:17:28 08/11/19 24 08/11/2023 rapid flu (A+B) Flu A negati ve Not Available In-Office Order Internal Use Only DO Not Attach Compendium DO Not Attach Compendium, Do Not Delete/merge, [id number] 08/09/2023 16:17:28 08/11/19 24 08/11/2023 rapid flu (A+B) Flu B negati ve Not Available In-Office Order Internal Use Only DO Not Attach Compendium DO Not Attach Compendium, Do Not Delete/merge, [id number] 08/09/2023 16:17:28 08/17/19 24 08/17/2023 influ monse virus A + B + SARS- CoV-2 (COVI D19) Ag panel , rapid IA, upper respi rator y speci men Flu A negati ve Not Available In-Office Order Internal Use Only DO Not Attach Compendium DO Not Attach Compendium, Do Not Delete/merge, [id number] 08/14/2023 14:15:00 08/17/19 24 08/17/2023 influ monse virus A + B + SARS- CoV-2 (COVI D19) Ag panel , rapid IA, upper respi rator y speci men Flu B negati ve Not Available In-Office Order Internal Use Only DO Not Attach Compendium DO Not Attach Compendium, Do Not Delete/merge, [id number] 08/14/2023 14:15:00 08/17/19 24 08/17/2023 influ monse virus A + B + SARS- CoV-2 (COVI D19) Ag panel , rapid IA, upper respi rator y speci men Rapid SARS CoV 2 Ag, QL IA, respiratory specimen negati ve Not Available In-Office Order Internal Use Only DO Not Attach Compendium DO Not Attach Compendium, Do Not Delete/merge, [id number] 08/14/2023 14:15:00 11/24/19 24 11/25/2023 QUANT IFERO N-TB GOLD PLUS quantiferon incubation INCUBA TION PERFOR MED. Not Available [facility] ([facility]) [address] [facility], [place], [address], 11/26/2023 20:09:05 11/24/19 24 11/25/2023 QUANT IFERO N-TB GOLD PLUS quantiferon criteria COMMEN T Quant iFERO N-TB Gold Plus is a quali tativ e indir ect test for M tuber culos is infec tion (incl uding disea se) and is inten ded for use in conju nctio n with risk asses sment , radio graph y, and other medic al and diagn ostic evalu ation s. The Quant iFERO N-TB Gold Plus resul t is deter mined by subtr actin g the Nil value from eithe r TB antig en (Ag) value . The Mitog en tube serve s as a contr ol for the test. Not Available [facility] ([facility]) [address] [place], [address], 11/26/2023 20:09:05 11/24/19 24 11/26/2023 QUANT IFERO N-TB GOLD PLUS quantiferon- TB gold plus NEGATI VE negati ve No respo nse to Delilah peralta is antig ens detec kelsy. Infec tion with Delilah peralta is is unlik juan m, but high risk indiv idual s shoul d be consi dered for addit ional testi ng (ATS/ IDSA/ CDC Clini azael Pract ice Guide lines , 2017) . The refer ence range is an Antig en minus Nil resul t of <0.35 IU/mL . Chemi lumin escen ce immun oassa y metho dolog y Not Available [facility] ([facility]) [address] [facility], [place], [address], 11/26/2023 20:09:05 11/24/19 24 11/26/2023 QUANT IFERO N-TB GOLD PLUS quantiferon TB1 Ag value 0.00 IU/mL Not Available [facility]) [address] [place], [address], 11/26/2023 20:09:05 11/24/19 24 11/26/2023 QUANT IFERO N-TB GOLD PLUS quantiferon TB2 Ag value 0.00 IU/mL Not Available [facility]) [address] [place], [address], 11/26/2023 20:09:05 11/24/19 24 11/26/2023 QUANT IFERO N-TB GOLD PLUS quantiferon nil value 0.00 IU/mL Not Available [facility]) [address] [place], [address], 11/26/2023 20:09:05 11/24/19 24 11/26/2023 QUANT IFERO N-TB GOLD PLUS quantiferon mitogen value >10.00 IU/mL Not Available [facility]) [address], [place], [address], 11/26/2023 20:09:05 Result Notes None recorded. Problems Name Problem SNOMED Code Status Onset Date Resolution Date Notes Provider Name and Address Organization Details Recorded Time Eczema 37586763 Active 2017 Cm Brenner MD Attn: Speedy olivares,[address] [place] [address], [address], [place] [facility] 3 19:35:04 Disorder of nasal septum 54340109 Active 2017 Cm Brenner MD Attn: Speedy olivares,[address] [place], [address], [place] [facility] 3 19:36:25 Seasonal allergy 659946581 Active 2017 Cm Brenner MD Attn: Speedy olivares,[address] [place], [address], [place] [facility] 3 19:36:05 Moderate persisten t asthma 283125792 Active 2017 Cm Brenner MD Attn: Speedy olivares,[address] [place] [address], [address], [place] [facility] 3 19:34:42 Sleep apnea 39055996 Active 2017 Cm Brenner MD Attn: Speedy olivares,[address] [place], [address], [place] [facility] 3 19:35:12 Streptoco ccal sore throat 80083549 Completed 201709/14/2017 Cm Brenner MD Attn: Speedy olivares,[address] [place] [address], [address], [place] [facility] 3 19:36:55 Migraine 91944205 Active 2021 Cm Brenner MD Attn: Speedy olivares,[address] [place] [address], [address], [place] [facility] 3 19:35:49 Gastroeso phageal reflux disease 705496083 Active 2022 Cm Brenner MD Attn: Edaarley olivares,[address] [facility], [place], [address], [place] [facility] 3 19:37:33 Obesity 207393930 Active 2022 Cm Brenner MD Attn: Edaarley olivares,[address] [facility], [place], [address], [place] [facility] 3 19:37:43 Blood in urine 01873294 Completed 202201/05/2024 Nelly Zavala MD Attn: Speedy marshall,[address] [place] [address], [address], [place] [facility] 4 21:55:21 Anxiety 41084047 Active 2022 Cm Brenner MD Attn: Speedy marshall,[address] [place], [address], [place] [facility] 3 19:38:01 Constipat ion 29566892 Completed 202201/05/2024 Nelly Zavala MD Attn: Speedy marshall,[address] [place], [address], [place] [facility] 4 21:55:25 Smoker 51242084 Completed 202201/05/2024 Nelly Zavala MD Attn: Speedy marshall,[address] [place], [address], [place] [facility] 4 21:56:28 Anxiety disorder 208377451 Active 2022 Nelly Zavala MD Attn: Speedy marshall,[address] [place], [address], [place] [facility] 4 21:55:27 Depressiv e disorder 94814618 Active 2022 Nelly Zavala MD Attn: Speedy olivares,[address] [place], [address], [place] [facility] 4 21:55:30 Mood disorder 73699739 Active 2022 Nelly Zavala MD Attn: Speedy olivares,[address] [facility], [place], [address], [place] [facility] 4 19:42:36 Suicidal thoughts 6692685 Completed 202201/05/2024 Nelly Zavala MD Attn: Speedy olivares,[address] [facility], [place], [address], [place] [facility] 4 21:56:55 Feeling of lump in throat 285965964 Completed 202311/24/2023 Nelly Zavala MD Attn: Speedy olivares,[address] [facility], [place], [address], [place] [facility] 4 19:43:29 Pain of left ankle joint 566409563755 60005 Active 2023 Nelly Zavala MD Attn: Speedy olivares,[address] [facility], [place], [address], [place] [facility] 4 21:55:32 Obesity 944445873 Completed 01/11/2017 Cm Brenner MD Attn: Speedy olivares,[address] [facility], [place], [address], [place] [facility] 3 19:37:43 Enlarged tonsil 395025095 Completed 01/11/2017 Ke brandon, [place] - [facility] 7 16:20:45 Vitamin D deficienc y 80124207 Active Cm Brenner MD Attn: Speedy marshall,[address] [facility], [place], [address], [place] [facility] 3 19:36:13 Asthma 417646615 Completed 06/27/2017 Johnna Hinkle [place], [place] - [facility] 8 18:34:49 Overweigh t 252175783 Completed 01/11/2017 Ke Reyes null, [place] - [facility] 7 16:20:43 Eruption 138353926 Completed 201606/27/2017 Johnna brandon [facility] 8 18:37:28 Problem Notes None recorded. Procedures Surgical History Date Name Laterality Status Provider Name and Address Organization Details Recorded Time 8 Tonsillectomy completed Nelida Cat MA [facility] 02/01/2020 11:37:38 Imaging Results None recorded. Procedure Notes None recorded. Medical Equipment None Reported. Allergies Allergen ID Allergen Name Allergen Category Reaction Reaction Severity Criticality Documentation Date Start Date Code Code System Note Provider Name and Address Organization Details Recorded Time 529864 amoxicill in medicatio n rash Not available Not available 09/28/2018 723 RxNorm Not Available Not Available Not Available 589804 Product containin g penicilli n (product) medicatio n Not available Not available Not available 02/14/2019 62267 8001 SNOMED Not Available Not Available Not Available 137959 Flovent medicatio n Not available Not available Not available 07/06/2022 78430 2 RxNorm Not Available Not Available Not Available 124018 Substance with sulfonami de structure and antibacte rial mechanism of action (substanc e) medicatio n Not available Not available Not available 11/24/2023 52502 8003 SNOMED Not Available Not Available Not Available Medications Name Sig Start Date Stop Date Status Note LastModified by Organization Details LastModified Time cyclobenz aprine 10 mg tablet 04/01 completed Not Available Not Available Not Available Qvar 80 mcg/actua tion Metered Aerosol oral inhaler Inhale 2 puffs twice a day by inhalati on route as directed . 01/11 completed Not Available Not Available Not Available prednison e 10 mg tablet 05/25 completed Not Available Not Available Not Available clindamyc in HCl 300 mg capsule TAKE 1 CAPSULE BY MOUTH EVERY 12 HOURS FOR 7 DAYS 02/07 completed Not Available Not Available Not Available albuterol sulfate 2.5 mg/3 mL (0.083 %) solution for nebulizat ion INHALE 3 ML 3 TIMES A DAY BY NEBULIZA TION ROUTE NEEDED. active Not Available Not Available No t Available triamcino lone acetonide 0.5 % topical cream APPLY A THIN LAYERS TO THE AFFECTED AREA(S) ON THE SKIN TWICE DAY 07/28 completed Not Available Not Available Not Available cetirizin e 10 mg tablet Take 1 tablet every day by oral route for 30 days. active Not Available Not Available No t Available azithromy taran 250 mg tablet TAKE 2 TABLETS (500 MG) BY ORAL ROUTE ONCE DAILY FOR 1 DAY THEN 1 TABLET (250 MG) BY ORAL ROUTE ONCE DAILY FOR 4 DAYS 02/07 completed Not Available Not Available Not Available fluconazo le 150 mg tablet 01/31 completed Not Available Not Available Not Available valacyclo vir 1 gram tablet 01/31 completed Not Available Not Available Not Available fluconazo le 200 mg tablet TAKE 1 TABLET BY MOUTH EVERY OTHER DAY X 3 DOSES. 03/26 completed Not Available Not Available Not Available sumatript an 25 mg tablet TAKE 1 TABLET BY MOUTH ONCE FOR HEADACHE . MAY REPEAT IN 2 HOURS IF NO RELIEF. MAX 3TABS/24 HRS 06/12 completed worried it may react with asthma Not Available Not Available Not Available metronida zole 0.75 % (37.5 mg/5 gram) vaginal gel 12/18 completed Not Available Not Available Not Available prednison e 20 mg tablet Take 1 tablet every day by oral route as directed for 5 days. 05/25 completed Not Available Not Available Not Available Milk of Magnesia 400 mg/5 mL oral suspensio n Take 30 mL every day by oral route. 06/12 completed Not Available Not Available Not Available penicilli n V potassium 500 mg tablet Take 1 tablet every 12 hours by oral route for 10 days. 12/15 completed Not Available Not Available Not Available topiramat e 25 mg tablet TAKE 2 TABLETS BY MOUTH EVERY DAY FOR 30 DAYS 02/12 completed Not Available Not Available Not Available metronida zole 500 mg tablet 01/31 completed Not Available Not Available Not Available acetamino phen 300 mg-codein e 30 mg tablet Take 1 tablet 3 times a day by oral route for 3 days. 01/31 completed Not Available Not Available Not Available sulfameth oxazole 800 mg-trimet hoprim 160 mg tablet TAKE 1 TABLET BY MOUTH EVERY 12 HOURS FOR 7 DAYS 11/23 completed Not Available Not Available Not Available omeprazol e 40 mg capsule,d elayed release TAKE 1 CAPSULE BY MOUTH EVERY DAY IN THE MORNING 06/12 completed Not Available Not Available Not Available doxycycli ne monohydra te 100 mg tablet Take 1 tablet twice a day by oral route for 15 days. 02/07 completed Not Available Not Available Not Available triamcino lone acetonide 0.1 % topical cream APPLY THIN COAT TO AFFECTED AREA TWICE A DAY 07/28 completed Not Available Not Available Not Available lamotrigi ne 25 mg tablet TAKE 1 TABLET BY MOUTH EVERY DAY 03/26 completed Not Available Not Available Not Available Bicillin C-R 1,200,000 unit/2 mL intramusc ular syringe Inject 2.4 million units by intramus cular route. 12/18 completed Not Available Not Available Not Available amoxicill in 875 mg tablet Take 1 tablet twice a day by oral route as directed for 15 days. 01/07 completed Not Available Not Available Not Available famotidin e 20 mg tablet TAKE 1 TABLET BY MOUTH ONCE DAILY ON EMPTY STOMACH active Not Available Not Available No t Available metoclopr amide 5 mg tablet Take 1 tablet twice a day by oral route as needed. 01/31 completed Not Available Not Available Not Available benzonata te 100 mg capsule 01/31 completed Not Available Not Available Not Available cephalexi n 500 mg capsule 05/25 completed Not Available Not Available Not Available ranitidin e 150 mg tablet TAKE 1 TABLET BY MOUTH TWICE A DAY NEEDED 01/31 completed Not Available Not Available Not Available propranol ol ER 80 mg capsule,2 4 hr,extend ed release Take 1 capsule every day by oral route for 30 days. 2021 active Not Available Not Available Not Avai lable docusate sodium 100 mg capsule Take 1 capsule every day by oral route for 30 days. 08/14 completed Not Available Not Available Not Available omeprazol e 20 mg capsule,d elayed release TAKE 1 CAPSULE BY MOUTH EVERY DAY IN THE MORNING 03/26 completed Not Available Not Available Not Available nadolol 40 mg tablet Pt should take 1 tab daily with meals for daily preventi on of migraine s. 08/14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 M54.5 [id number] MD Madeleine Mcgowan 14 IM [address] [facility] [place] [address] 04/01/2021 09:36:27 04/03/2021 11:01:06 Psoriasis of scalp 797041776 L40.9 acts up in winter, will treat as previously , has worked well Moderate p ersistent asthma 244264071 J45.40 will increase dosage of her flu Constipation 87427923 K5 9.00 sousa tart with daily Miralax until results, then back off to 1-3 times per week as neededincr ease fiber in diet as toleratedi f hemorrhoid and bleeding doesn't resolve she will return for rectal exam and additional discussion . Administra tion of influenza vaccine 56549258 Z23 [id number] MD Madeleine Glaser 14 IM [address] [facility] [place] [address] 01/15/2022 15:32:19 01/16/2022 13:39:56 Anxiety disorder 064563973 F41.9 Pt was previously taking hydroxyzin e for anxiety. She says it has increased due to school and her headaches. Pt sees a therapistN ot wanting to start any new medication s for her anxiety at this time. Migraine with aura 08012 06 G43.109 migraines since she was 7 y.o, never had imagingTak es tylenol and Excedrin which has helped in the past but not every time.Aura with vision changes; vision changes worsening with temp loss in visionNeve r been treatedHas nexplanon for last 9 years. Headaches started before getting on BC.Will start topimax, if no response will try propanolol Will start sumatripta n to help when she has a migraine. Nicotine dependence 5629 4008 F17.200 Pt smokes: Vape daily 50mcg cartridge dailyNot sure she is ready to quit but will cut back.Could have a link to her migrainesH ave educated on the risks to her health and the benefits of stopping smoking.Wi ll continue to encourage to stop smoking. Obesity 273223576 E66.9 BMI: 33.4 weight: 201; this is down from her previous visit.Pt reports she is active but could increase the frequency. Diet: VeganPt started topimax for her migraines this could help decrease her BMI. [id number] MD Madeleine Mcgowan 14 IM [address] [facility] [place] [address] 02/02/2022 11:29:57 02/03/2022 12:15:48 Streptococcal sore throat 47569237 J02.0 Pt has had symptoms for 1 week. Has history of repetitive strep infections since childhood. Rapid strep positive in office.- Allergy to amoxicilli n: rash all over body- Sore throat hard to swallow, have advised chlorasept ic spray as needed- Cefdinir 300mg BID x 5 days [id number] MD Madeleine Glaser 14 IM [address] [facility] [address] [place] [address] 02/12/2022 14:29:41 02/13/2022 15:33:01 Migraine with aura 3724784 G43.109 Migraines since she was 7 y.o, never had imagingTak es tylenol and Excedrin which has helped in the past but not every time.Aura with vision changes; vision changes worsening with temp loss in visionNeve r been treatedHas nexplanon for last 9 years. Headaches started before getting on BC.propano lolWill Stop topimaxSta rt propanolol qD and titrate up as needed and tolerated. Will continue sumatripta n Acute left otitis media 519946957 H66.92 WIll continue her previous course of Azithromyc in for 5 d. pt has pain, fullness, erythemato us bulging membrane >2 weeks.Will give course of abx 5 day [id number] MD Madeleine Pickett 14 IM [address] [facility] [place] [address] 04/23/2022 15:50:17 04/27/2022 16:18:04 Obesity 080913665 E66.9 BMI: 33.4 weight: 201; this is down from her previous visit.Pt reports she is active but could increase the frequency. Diet: Vegan Gastroesop hageal reflux disease 970390968 K21.9 Patient has been experienci ng increasing epigastric pain for 3 days, onset was 1 year ago after going to [employer]. No one else with similar symptoms. Pain worse after food consumptio n. Patient endorses vomiting with epigastric pain regularly. Sister did recently just get dx with IBS.- will treat with ppi due to lingering epigastric discomfort that is worsening- If not improved after 2-3 months will consider Gi Referral to rule out ulcer Blood in urine 21477622 R31.9 UA poc: Negative hematuria, negative for infectionN egative test Anxiety 85033718 F41.9 Pt has anxiety, seeing a therapist with elevated Alli-7 in clinicWill look for medical causes of anxietyPt seeing a therapist regularly; has good connection - Pt takes hydroxyzin e prn which does help- Pt considerin g medication s, has declined in the past; would like to start escitalopr am Constipation 24847640 K5 9.00 Patient is experienci ng hard stools and abdominal pain.Has been taking tums for indigestio n painSister just dx with IBS: She is worried she may also have- will give stool softeners along with milk of mag- will consider IBS if symptoms not improved with ppi and stool softeners; will treat IBS. [id number] MD Madeleine LAI 14 IM [address] [facility] [address] [place] [address] 06/12/2022 10:56:50 06/15/2022 16:03:59 Smoker 79257709 F17.200 Vape: 50mcgDaily : Wants to quitwill start decreasing mcg with goal of 20mcg to start: this will be the equivalent to regular pack of cig- declined patch- not wanting to start medication s Obesity 857890676 E66.9 BMI: 33.4 weight: 201; this is down from her previous visit.Pt reports she is active but could increase the frequency. Diet: vegetarian plant based- A1c reassuring Gastroesop hageal reflux disease 157767407 K21.9 Pain worse after food consumptio n has improved with probiotics and PPI. Patient endorses vomiting with epigastric pain regularly along with constipati on with irregular BM.- Pain improved with 40mg ppi, will decrease to 20mg and try to deescalate therapy to pepcid 20 after- continue probiotics Anxiety 32241240 F41.9 Pt has anxiety, seeing a therapist with elevated Alli-7 in clinicWill look for medical causes of anxietyPt seeing a therapist regularly; has good connection - Pt takes hydroxyzin e prn which does help- Pt considerin g medication s, has declined in the past; would like to start escitalopr am Moderate p ersistent asthma 958809707 J45.40 Continue to use dailyAlbut joel for rescue inhaler- return 2 weeks to establish asthma action plan Administra tion of diphtheria, pertussis, and tetanus vaccine 000907949 Z23 [id number] MD Madeleine Mcgowan 14 IM [address] [facility] [address] [place] [address] 07/06/2022 11:30:57 07/14/2022 10:13:50 Moderate persistent asthma 308313512 J45.40 AirDuo 232 mcg-14 1p BIDAlbuter ol rescue inhalerMon telukast 10mg dailyAlbut joel- nebs as needed - No recent exacerbati ons, hospitaliz ations- Asthma Action plan made today, will upload to chart.- No changes to medication s. Pt would benefit for JUVENCIO study oriented therapy with Symbicort as both rescue and maintenanc e inhaler. Per pt was not able to get on medication due to insurance denying her med. Obesity 708719640 E66.9 BMI: 33.4 weight: 201; this is down from her previous visit.Pt reports she is active but could increase the frequency. Diet: vegetarian plant based- A1c reassuring - Dietitian referral today- Take multivitam in- Pt would like to start GLP-1 Wegovey- Would like to see continued weight loss with out the medication with sustained habit building. Have also educated on GLP-1 and how they are a diabetic medication . FDA has approved for weight loss but we don't yet know the halfway effects of the medication . The benefit/ri sk has been clear seen in pts with diabetes, but the risk to benefit may not be as clear for weight loss alone. More studies will be needed to figure that out. She expressed her understand ing Dysuria 03231026 R30.0 Pain when urinating, UA negative in clinic. Recent STI including test at family therapist was negative. Pt does have new sexual partner which is why she was tested at ob. Pt has long history of UTI. She denies history of stones or surgery.- Will continue to monitor if symptoms don't resolve.- Have advised to urinate after sexual intercours e- Increase water consumptio n.- OTC AZO to help with urinary symptoms. [id number] MD Madeleine Goodson 14 IM [address] [facility] [address] [place] [address] 08/14/2022 15:47:24 08/18/2022 09:40:34 Migraine 14734940 G43.909 PHQ9=21/27 , GAS=20/21T opamax and sumatripta n not helpingpro panolol out due to asthma Mixed anxi ety and depressive disorder 525892853 F41.8 Obesity 647333427 E66.9 BMI: 35.1 weight: 198 lb- Pt reports she is active but could increase the frequency. - Diet: vegetarian plant based- A1c: 5.3- Dietitian referral today: not seen- Take multivitam in daily- Pt would like to start GLP-1 Wegovey: after convo has decided to hold off. Would like to see continued weight loss with out the medication with sustained habit building. Have also educated on GLP-1 and how they are a diabetic medication . FDA has approved for weight loss but we don't yet know the local company intermodal truck driver effects of the medication . The benefit/ri sk has been clear seen in pts with diabetes, but the risk to benefit may not be as clear for weight loss alone. More studies will be needed to figure that out. She expressed her understand ing Smoker 32963378 F17.200 Vape: 50mcgDaily : Wants to quitwill start decreasing mcg with goal of 20mcg to start: this will be the equivalent to regular pack of cig- declined patch- not wanting to start medication s Moderate p ersistent asthma 401736356 J45.40 AirDuo 232 mcg-14 1p BIDAlbuter ol rescue inhalerMon telukast 10mg dailyAlbut joel- nebs as needed- No recent exacerbati ons, hospitaliz ations- Asthma Action plan: yes- No changes to medication s. Pt would benefit for JUVENCIO study oriented therapy with Symbicort as both rescue and maintenanc e inhaler. Per pt was not able to get on medication due to insurance denying her med. Will continue with what is covered. Anxiety 49868188 F41.9 Pt has anxiety, seeing a therapist with elevated Alli-7 in clinicWill look for medical causes of anxietyPt seeing a therapist regularly; has good connection - Pt takes hydroxyzin e prn which does help- Pt considerin g medication s, has declined in the past; would like to start escitalopr am: have started 10mg [id number] MD Madeleine Mcgowan 14 IM [address] [facility] [address] [place] [address] 03/26/2023 10:13:35 04/02/2023 13:11:35 Obesity 328389501 E66.9 BMI: 35.1 weight: 198 lb- Pt reports she is active but could increase the frequency. - Diet: vegetarian plant based- A1c: 5.3- Dietitian referral today: not seen- Take multivitam in daily- Pt would like to start GLP-1 Jazz: after convo has decided to hold off. Would like to see continued weight loss with out the medication with sustained habit building. Have also educated on GLP-1 and how they are a diabetic medication . FDA has approved for weight loss but we don't yet know the local company intermodal truck driver effects of the medication . The benefit/ri sk has been clear seen in pts with diabetes, but the risk to benefit may not be as clear for weight loss alone. More studies will be needed to figure that out. She expressed her understand ing Anxiety disorder 1152247 F41.9 She says it has increased anxiety due to school. She is following with therapist whom specialise s in BPD and has dx her with BPD. She is having short interval follow up weekly/prn . EMDR therapy during those session. Therapist: Gilbert Rodrigues. additional ly she was seen by psych for eval and med recs. They told her they thought she may have BP based on her response to ssri. She did not go back as she didn't agree. Have discussed with pt that it is possible and encouraged her to have follow up. - 03/26 She is following with her therapist still, not seen psych. Not wanting to start other meds. Needs refill on hydroxyzin e. She endures SI with thought and intent multiple times a week. Pt states she would not act on thoughts. Plan- Pt sees a therapist: continue short interval follow up.- Self DC escitalopr am: said it made her feel crazy.- Continue hydroxyzin e prn.- Not wanting to start any new medication s for her anxiety at this time.Hermelindo domínguez no suicide contract with pt made. She will contact [facility] or go to nearest ED if having thoughts Menstrual period late 84 464235 N92.6 LMP 02/22/23- 11 7 days late. Sexually active with 1 partner, Melissa Corrales last month not sure if worked.- 03/26/23 Neg hcg- declined sti testing- advised condom use. Eczema 90381525 L30.9 Hx of eczema. Daily lotions, cerve. Controlled most of the time but with weather change is having a flare up on neck and shoulders. - Continue daily lotions- BID topical steroid up to 10 days- Have provided education and handouts on how to prevent outbreaks. Suicidal thoughts 283876 6 R45.851 Pt seems Low risk to act it out, no active intent. But does endorses Weekly SI. Active Plan: No but then states yea eris. Sites multiple reasons not to act on thoughts: Family and friends, has goals.Curtis es access to weapons/fi rearmsSees therapist: Gilbert Rodrigues BPD specialist with short interval follow upHas Suicide hoteline number PlanVerbal suicide agreement 03/26/23: if feeling down or like wanting to act on hurting self will present to nearest ED. Has friends whom are aware of her thoughts and check on herPhone visit q4 weeks.Get therapist records of BPD dx [id number] MD Madeleine LAI 14 IM [address] [facility] [address] [place] [address] 04/14/2023 10:00:45 04/29/2023 09:26:59 Smoker 19101922 F17.200 Vape: 50mcgDaily : Wants to quitwill start decreasing mcg with goal of 20mcg to start: this will be the equivalent to regular pack of cig- declined patch- not wanting to start medication s Anxiety disorder 8550199 06 F41.9 See mood disorder Suicidal thoughts 200515 6 R45.851 Telehealth Visit Today:repo rts mood has improved. No SI/HI, still not wanting to start medication s for mood. Pt was dx with BPD by her psychologi st and BiP by her psychiatri st.Sees therapist: Gilbert Rodrigues BPD specialist with short interval follow up weekly, and prn if needed.Pt seems Low risk to act it out, no active intent, no access to weapons. Plan- Verbal suicide agreement 03/26/23: if feeling down or like wanting to act on hurting self will present to nearest ED. Has friends whom are aware of her thoughts and check on her- Get therapist records of BPD dx and continue close interval follow up.- Pt to follow with psych based on previous conversati on.- Close interval follow up q4 weeks while establishi ng care with psych.- Pt has declined psych medication s- Has contact [facility] n for suicide hotline. Mood disorder 68690218 F 39 Telehealth Visit TodayPossi ble BPD vs BIP 2. with associated Anx and Depression .She is following with therapist whom specialise s in BPD and has dx her with BPD. Additional ly she was seen by psych for eval and med recs. They told her they thought she may have BiP based on her response to ssri. She does report SI and splitting in addition to increased mood, rapid thoughts that at times are hard to keep up with, along with impulsive behaviors. Previously taking escitalopr am: said it made her feel crazy. Plan- Short interval follow up weekly/prn . EMDR therapy during those session. Therapist: Gilbert Rodrigues who in a BPD specialist and has dx her.- Follow with psych for further evaluation of possible BiP disorder, has apt scheduled. - MDQ questionna karyn on next visit- Continue hydroxyzin e prn: has them but not using. Obesity 203197770 E66.9 BMI: 35.1 weight: 198 lb- Pt reports she is active but could increase the frequency. - Diet: vegetarian plant based- A1c: 5.3- Dietitian referral today: not seen- Take multivitam in daily- Pt would like to start GLP-1 Weandreea: after convo has decided to hold off. Would like to see continued weight loss with out the medication with sustained habit building. Have also educated on GLP-1 and how they are a diabetic medication . FDA has approved for weight loss but we don't yet know the halfway effects of the medication . The benefit/ri sk has been clear seen in pts with diabetes, but the risk to benefit may not be as clear for weight loss alone. More studies will be needed to figure that out. She expressed her understand ing Depressive disorder 4927 9507 F32.A See mood disorder [id number] MD Madeleine Rios 14 [address] [facility] [address] [place] [address] 07/29/2023 09:35:33 08/19/2023 09:47:40 Smoker 01178824 F17.200 Vape: 50mcgDaily : Wants to quitwill start decreasing mcg with goal of 20mcg to start: this will be the equivalent to regular pack of cig- declined patch- not wanting to start medication s Obesity 243890755 E66.9 BMI: 35.1 weight: 198 lb- Pt reports she is active but could increase the frequency. - Diet: vegetarian plant based- A1c: 5.3- Nutritioni st referral today: 07/29/23- Take multivitam in daily Feeling of lump in throat 743395753 R09.89 Pt has lump in throat with hangs in voice. Pt does have mildly enlarged thyroid, no nodule noted. She is minimally symptomati c but reports is fatigued Despite having pain in throat she has continued to vape daily. She has no LAD. Tonsillect nenita at 17 y.o. Flu, covid, strep negative. Never had EGD. Plan- TSH w\ reflex , cbc- Due to mildly enlarged thyroid and change in voice will send for US. Will also assist ENT to see what is going on,- Consider thyroid ab testing- Supportive .care- stop smoking [id number] MD Madeleine Goodson 14 IM 4 [facility] [address] [place] [address] 08/09/2023 15:14:30 08/19/2023 11:49:55 Viral syndrome 651382748 B34.9 Pt presents with viral syndrom. Rapid FLU/COVID/ Strep all negative in clinic. Most likely viral syndrome based on symptoms. Future: will send for culture due to pts history of strep and early onset of symptoms. Plan- Counseled on viral syndrome and educated on supportive care.- Advised OTC mucinex. Tylenol/Ib uprofen for pain/fever , throat lozenges, decongesta nts, Vapor Rub on chest/janelle om of feet with socks at night, humidifier at night.- Max dose tylenol 4g: educated that most OTC cough meds have tylenol and to pay attention to how much they are taking.- Use inhaler for wheezing q4hrs/prn may repeat but if needed >4 times go to ED/UC/cont act clinic.- advised warm salt water gargles, rest, increase fluids (pedialyte , coconut water)- Start cetirizine - Start Ipratropiu m Nasal spray- Nasal flushing prn- Start chlorasept ic throat spray- encourage smoking cessation- Red flag/UX/ED precaution s discussed. - If no improvemen t 1 week advised to call office [id number] MD Madeleine LAI 14 IM [address] [facility] [address] [place] [address] 11/24/2023 10:23:48 12/08/2023 14:36:02 Tuberculosis screening 123528105 Z11.1 Asymptomat ic. Required for school.Rx quant gold testing today. History an d physical examination, [facility] 70009084 Z02.0 wnl hx & examReques kelsy form completed. f/u prn Body mass index 30+ - obesity 762928679 Z68.35 BMI 35Recommen d continued lifestyle modificati ons & exercise >150mins/w k Moderate p ersistent asthma 978677605 J45.40 Stable.Con tinue prior Tx of AirDuo & albuterol prn Anxiety 52264463 F41.9 Stable. At baseline.C ontinue hydroxyzin e prn [id number] MD Madeleine Meek 14 IM [address] [facility] [address] [place] [address] 01/04/2024 08:41:56 01/06/2024 15:55:08 Administration of influenza vaccine 35759281 Z23 Required for school.Dis cussed recommenda tion with patient who agrees.Rx flu vaccine. Pain of le ft ankle joint [id number] 8665424 M25.572 Chronic. Atraumatic . Potentiall y secondary to non supportive footwear and prior childhood injuries. Physical exam reassuring .Plan:Cont inue p.r.n. OTC.Recomm end supportive footwear.R x physical therapy.Re turn precaution s given. Moderate p ersistent asthma 318431757 J45.40 Stable.Con tinue prior Tx of AirDuo & albuterol prn Anxiety 13200049 F41.9 Stable. At baseline.C ontinue hydroxyzin e prn Body mass index 30+ - obesity 194472646 Z68.35 BMI 35Recommen d continued lifestyle modificati ons & exercise >150mins/w k Health Concerns Section Related Observation LastModified by Organization Detai ls LastModified Time None Recorded Concern Status LastModified by Organization Details LastModified Time None Recorded Advance Directives Directive N: Payers Encounter Date Sequence Insurance Name Policy Number Policy Odonnell Covered Member ID Odonnell Member ID Guarantor Name 04/14/2023 1 [facility] (MEDICAID HMO) [id number] Sandra Short [id number] Sandra Short 07/29/2023 1 [facility] (MEDICAID HMO) [id number] Sandra Short [id number] Sandra Short 08/09/2023 1 [facility] (MEDICAID HMO) [id number] Sandra Short [id number] Sandra Short 11/24/2023 1 [facility] (MEDICAID HMO) [id number] Sandra Short [id number] Sandra Short 01/04/2024 1 [facility] (MEDICAID HMO) [id number] Sandra Short [id number] Sandra Short Notes Date Note Type Note Provider Name and Address Organization Details Recorded Time 04/14/2023 text/html This visit was performed by Phone only. The patient's name, , and home address were confirmed prior to initiation of phone encounter. CC: Well check Recent was dx BPD vs [id number]: improvedAnxiety: reports is sameDoing EMDR treatment with therapist. Has been keeping Wellness journal. MEDS: we tried escitalopram but did work said made her feel crazy. Had apt with psych whom mentioned they thought she had BiP. She does not agree with dx and did not follow up after. She is not interested in starting any new meds at this time. Reports periods of high energy and low mood as well. She does report sexual impulsive, gets annual STI check up. Denies any symptoms.- 04/14/23[facility]. Pt reports she is doing well and has improved mood. Denies and SI/HI. She is following with therapist still. After conversation at last visit she has scheduled a follow up with Psych to discuss possible BiP dx. She is still not interested in taking any medications. SI:Not currently having SI/HI.Working on recognizing patters with her therapist. Has short interval follow up with prn/Weekly apts. Name: Gilbert Rodrigues. Has a safty contract with therapist, with a plan. Suicide hoteline: has number Follow up apt with Psych scheduled. Not wanting to be on meds at this time. Denies active Plan: but then states yea eris. but depends on her mood/stress level. Sites multiple reasons not to act on thoughts: Family and friends, has goals. Denies access to weapons/firearms. Has Suicide hot line number. No history of previous attempts. Yes feels safe. Flu/Covid vaccine: will consider next time DUYEN HAMEED MD Attn: Accounting,[address] [facility], [place], [address], [facility] - [facility] 04/28/2023 09:49:43 07/29/2023 text/html CC: Well check BPD vs BiPD Depression: improved Anxiety: improved Pt still doing EMDR treatment with therapist, reports has been helpful. Has been keeping Wellness journal. MEDS: failed escitalopram, made her feel crazy. Psych diagnosed with BiP, she does not agree with dx and did not follow up after. Not interested in starting new meds. Reports periods of high energy and low mood as well which could be manic episodes. Additionally report sexual impulsive, gets annual STI check up. Denies any symptoms and does not want check up now. Taking hydroxizine at night for anxiety. Not wanting to do mood disorder screening. PHq9/Gad7 improved. SI: denies SI/HI Flu/Covid vaccine: declines Lump in throat/neck onset: 3 weeks ago woke up with acute changes Location anterior throat. character: no pain, woke up and was raspy voice, thought she was getting sick but never did developed further symptoms. Associated voice change, Fullness in neck. no trouble swallowing. Has tried mint gum mints not working, hot fluids not helping. Despite pain she has continued to Vape: daily Drink etoh on weekends. NO Family history throat cancer. Reports mom had stage 4 SCLL cancer/cervical cancer. She does have fatigue, constipation at times, dry skin, anxiety. Denies fever, chills, night sweats, no cough, no acid indigestion, no night time cough. Has been drinking lots of fluids. Denies sensitivity to heat and cold, changes in hair, nails. Paradise Ruiz MD Attn: Accounting,[address] [facility], [place], [address], [facility] 08/16/2023 10:53:40 08/09/2023 text/html CC: sick visit 1day ofsore throat, body aches, Subjective fever. congestion, clear drainage from nose. No cough. History of strep throat with adenoids removed as child.No sick contacts: [facility] recent travelall vaccines utd has history of asthma and seasonal allergies. Vasu Rascon MD Attn: Accounting,[address] [facility], [place], [address], [place] [facility] 08/13/2023 17:33:08 11/24/2023 text/html 23 F h/o mod persistent asthma, eczema, GERD, BMI 35, BRIDGET & anxiety presenting for school physical. Resp Tx schoolasthma: Controlled. Minimal prn inhaler use. No cough Mood stable. Minimal prn hydroxyzine use. No SI or HI Otherwise denies any medical concerns. See form completed. [facility] 11/13 DUYEN HAMEED MD Attn: Accounting,[address] [facility], [place], [address], [facility] - [facility] 11/29/2023 11:27:10 01/04/2024 text/html 23 F h/o mod persistent asthma, eczema, GERD, BMI 35, BRIDGET & anxiety presenting to add TB results to school form. Patient seen in November. Needed TB testing for school. TB results received November 25 and patient asked to be informed. States when she called and asked if she can get a flu vaccine and TB results formally added to form, she was told she needs to schedule an appointment and physically come in. no new symptoms. Does not need any thing else completed on physical form. Review of systems completed. No headache. No vision changes. No chest pain. No shortness a breath. No abdominal pain. No constipation. No diarrhea.On ROS, mentioned that she has been struggling with left ankle soreness chronically. Swollen at end of shift. Kicked door when 15, volleyball HS rolled. wrapped since high. Endorses frequent non supportive footwear. Has tried elevation and ice without relief. No new trauma since then. No STI concerns. No rashes. No fever. No chills. Has never tried PT. Abi Figueroa MD Attn: Accounting,[address] [facility], [place], [address], [facility] 01/05/2024 22:39:18 OBGyn Episode No OBEpisode recorded.
[2024-08-02] MEDS: LACTATED RINGERS 1,000 ML 999 ML IV CONT (20:06)
[2024-08-02] MEDS: diphenhydrAMINE HCl INJ 50 MG/ML VIAL 25 MG IV PUSH (20:07)
[2024-08-02] MEDS: METOCLOPRAMIDE HCL INJ 10 MG/2 ML VIAL IV PUSH (20:07)
--- NOTE | 2024-08-02 20:08 | ED_ITS ---
HPI - Headache General Chief Complaint: Headache Stated Complaint: Headache, nausea, sweaty, palpitations-23 wks preg Time Seen by Provider: 08/02/24 19:46 History of Present Illness HPI Narrative: Patient is 23 weeks and started having headache with some nausea, felt clammy. No abdominal pain. Normal movement. No focal numbness or weakness Related Data Home Medications ?Medication ?Instructions ?Recorded ?Confirmed ?Last Taken ?Type albuterol sulfate 90 mcg/actuation 1 puff inhalation DAILY 06/26/20 12/11/23 Unknown History aerosol inhaler fluticasone 113 mcg-salmeterol 14 1 inh inhalation DAILY 06/26/20 12/11/23 Unknown History mcg/actuation breath activated powdr albuterol sulfate 90 mcg/actuation 2 puff inhalation PRN PRN 04/27/23 12/11/23 Unknown History aerosol inhaler Shortness Of Breath Or Wheezing hydroxyzine HCl 10 mg tablet 10 mg PO TID PRN Anxiety 04/27/23 12/12/23 Unknown History hydroxyzine HCl 25 mg tablet 25 mg PO PRN PRN Anxiety 04/27/23 12/11/23 Unknown History montelukast 10 mg tablet 10 mg PO DAILY 04/27/23 12/12/23 Unknown History triamcinolone acetonide 0.5 % 1 applic topical BID 04/27/23 12/12/23 Unknown History topical cream fluticasone 232 mcg-salmeterol 14 1 inh inhalation DAILY 10/12/23 12/11/23 Unknown History mcg/actuation breath activated powdr (AirDuo RespiClick) Allergies Allergy/AdvReac Type Severity Reaction Status Date / Time Penicillins Allergy Unknown Verified 08/02/24 18:12 Sulfa (Sulfonamide Allergy Rash Verified 08/02/24 18:12 Antibiotics) fluticasone (From Flovent AdvReac Severe Difficulty Verified 08/02/24 18:12 HFA) Breathing Review of Systems 2 Review of Systems: All systems reviewed & are unremarkable except as noted in HPI and below PMFSH Social History Social History Smoking status: Current every day smoker (vape) Tobacco type: e-cigarettes/vaping Second hand tobacco smoke exposure: No Alcohol intake: current Substance use: never Substance use type: does not use Living arrangements: with family Gender identity (if verbalized by the patient): Female Spiritual care concerns: No Exam 2 Narrative: EXAMINATION OF ORGAN SYSTEMS/BODY AREAS: Constitutional: Vital signs per nursing GENERAL: Appears slightly uncomfortable and squinting in light HEAD: Normal with no signs of head trauma. EYES: EOMI, conjunctiva normal, PERRL ENT: Hearing grossly intact LUNGS: Nonlabored breathing. HEART: [Regular rate and rhythm] ABD: [Soft], gravid, [nontender to palpation] EXT: Normal range of motion SKIN: [No rashes or lesions.] NEURO: [Alert and oriented x 3. No gross focal sensory or strength deficits.] Clear speech, normal gait. PSYCH: Normal affect Course Vital Signs Vital signs: Vital Signs Temperature 97.0 F L 08/02/24 18:15 Pulse Rate 81 08/02/24 18:15 Respiratory Rate 17 08/02/24 18:15 Blood Pressure 108/74 08/02/24 18:15 Pulse Oximetry 100 08/02/24 18:15 Temperature 97.0 F L 08/02/24 18:15 Pulse Rate 81 08/02/24 18:15 Respiratory Rate 17 08/02/24 18:15 Blood Pressure 108/74 08/02/24 18:15 Pulse Oximetry 100 08/02/24 18:15 MDM - Headache MDM Narrative Medical decision making narrative: 24F presents to the emergency department for headache. Patient is hemodynamically stable. No focal neurological or cranial nerve deficits on exam. No meningeal signs. The headache was gradual in onset, it is not exertional and does not appear consistent with subarachnoid hemorrhage or intracranial bleeding. No trauma. Patient is given headache cocktail including Reglan, Benadryl. On reevaluation, the headache is resolved, but patient experiencing akathisia from the Reglan, and would really like to go. I did offer more Benadryl, patient declines, she has no neurological deficits. Patient is comfortable going home for outpatient follow-up with primary care physician and/or neurology and provided with strict return precautions, especially for worsening headaches, neck pain/stiffness, fever or weakness, numbness/tingling or persistent vomiting. Lab Data 08/02/24 20:08 08/02/24 20:08 Labs: Lab Results 08/02/24 Range/Units 20:08 WBC 15.8 H (4.5-10.0) K/mm3 RBC 3.47 L (4.2-5.4) M/mm3 Hgb 11.2 L (12.0-15.0) g/dL Hct 34.3 L (37.0-47.0) % MCV 98.8 (80-100) fl MCH 32.3 (26-34) pg MCHC 32.7 (32-36) g/dl RDW 12.4 (11.5-14.5) % Plt Count 228 (150-375) k/mm3 MPV 9.7 (7.4-10.4) fl Immature Gran % (Auto) 2.5 H (0-0.5) % Neut % (Auto) 70.2 (45.5-73.1) % Lymph % (Auto) 16.7 L (18.3-44.2) % [place] % (Auto) 6.7 (2.6-8.5) % Eos % (Auto) 3.5 (0-4.4) % Baso % (Auto) 0.4 (0.2-1.2) % Lymph # (Auto) 2.65 (0.9-3.2) K/mm3 [place] # (Auto) 1.1 H (0.1-0.6) K/mm3 Eos # (Auto) 0.6 H (0-0.3) K/mm3 Baso # (Auto) 0.1 (0.0-0.1) K/mm3 Abs Immat Gran (auto) 0.39 H (0.00-0.031) K/mm3 Absolute Neuts (auto) 11.1 H (1.3-6.7) K/mm3 Absolute Nucleated RBC 0.000 (0.0-0.012) K/mm3 Nucleated RBC % 0.0 (0.0-0.2) % Sodium 132 L (137-145) mmol/L Potassium 3.4 (3.4-5.0) mmol/L Chloride 104 (98-107) mmol/L Carbon Dioxide 21 L (22-30) mmol/L Anion Gap 7 (4-12) mmol/L BUN 6 L (7-17) mg/dL Creatinine 0.55 L (0.7-1.0) mg/dL Estim Creat Clear Calc Not Reportable Estimated GFR > 60 (59 - ) Glucose 75 (65-110) mg/dL Calcium 8.9 (8.4-10.2) mg/dL Total Bilirubin 0.2 (0.2-1.3) mg/dL AST 27 (14-36) U/L ALT 36 H (6-35) U/L Alkaline Phosphatase 54 (38-126) U/L Total Protein 7.0 (6.3-8.2) g/dL Albumin 3.8 (3.5-5.1) g/dL Influenza A (RT-PCR) Pending Influenza B (RT-PCR) Pending RSV (RT-PCR) Pending SARS-CoV-2 RNA (RT-PCR) Pending Discharge Plan Discharge Clinical Impression: Headache, Nausea Patient Disposition: Home Condition: Stable Instructions: Acute Headache (ED) Additional Instructions: Please follow-up with your OBGYN. If your symptoms come back or get worse, please come back to the hospital. Patient Language: Mongolian Prescriptions: No Action triamcinolone acetonide 0.5 % cream 1 applic TOPICAL BID montelukast 10 mg Tablet 10 mg PO DAILY hydroxyzine HCl 25 mg tablet 25 mg PO PRN PRN (Reason: Anxiety) albuterol sulfate 90 mcg/actuation HFA aerosol inhaler 2 puff INHALATION PRN PRN (Reason: Shortness Of Breath Or Wheezing) hydroxyzine HCl 10 mg Tablet 10 mg PO TID PRN (Reason: Anxiety) levofloxacin 500 mg tablet 500 mg PO DAILY 6 Days Qty: 6 0RF fluticasone propion-salmeterol [AirDuo RespiClick] 232-14 mcg/actuation aerosol powdr breath activated 1 inh INHALATION DAILY mupirocin 2 % ointment 1 applic topical BID 7 Days Qty: 22 0RF albuterol sulfate 90 mcg/actuation HFA aerosol inhaler 1 puff INHALATION DAILY fluticasone propion-salmeterol 113-14 mcg/actuation aerosol powdr breath activated 1 inh INHALATION DAILY Follow-up/Referrals: UNKNOWN,DOCTOR [Primary Care Provider] -
[2024-08-02 20:17] LABS: Basophils Absolute Auto 0.1 K/mm3 (0.0-0.1); Basophils Percent Auto 0.4 % (0.2-1.2); Eosinophils Absolute Auto 0.6 K/mm3 (0-0.3); Eosinophils Percent Auto 3.5 % (0-4.4); Hematocrit 34.3 % (37.0-47.0); Hemoglobin 11.2 g/dL (12.0-15.0); Immature Granulocyte Absolute 0.39 K/mm3 (0.00-0.031); Immature Granulocyte Percent A 2.5 % (0-0.5); Lymphocytes Absolute Auto 2.65 K/mm3 (0.9-3.2); Lymphocytes Percent Auto 16.7 % (18.3-44.2); Mean Corpuscular HGB Conc 32.7 g/dl (32-36); Mean Corpuscular Hemoglobin 32.3 pg (26-34); Mean Corpuscular Volume 98.8 fl (80-100); Mean Platelet Volume 9.7 fl (7.4-10.4); Monocytes Absolute Auto 1.1 K/mm3 (0.1-0.6); Monocytes Percent Auto 6.7 % (2.6-8.5); Neutrophils Absolute Auto 11.1 K/mm3 (1.3-6.7); Neutrophils Percent Auto 70.2 % (45.5-73.1); Platelet Count Result 228 k/mm3 (150-375); Red Blood Count 3.47 M/mm3 (4.2-5.4); Red Cell Distribution Width 12.4 % (11.5-14.5); White Blood Count 15.8 K/mm3 (4.5-10.0)
--- OUTSIDE RECORDS SUMMARY | 2024-08-02 20:25 | XMS_ITS | Referral Summary ---
Author Organization [facility] Address [address] [place] [address] Care Team Providers Care Measurement And Verification Engineer Name Role Phone Cm Brenner MD Primary Care Provider + Encounters Date Type Department Care Team Description 06/08/2024 6:20 PM LONG CHAIN QUILLER TENDER Lab [facility] Advanced Medicine [facility] Advanced Medicine ([facility]) [address] [place] [phone] Screening for tuberculosis 06/08/2024 Orders Only [facility] Occupatiuonal Health [address] [facility] Room [address] (Third Floor) [place] [address] Florentino Rai MD Screening for tuberculosis (Primary [...] on file Legal Sex Female 11:25 AM LONG CHAIN QUILLER TENDER Gender Identity Not on file Sexual Orientation [...] Diagnosis Comments T-SPOT.TB Routine 06/08/2024 3:29 PM LONG CHAIN QUILLER TENDER Screening for tuberculosis from Last 3 Months Results * T-SPOT.TB Blood (06/08/2024 3:29 PM LONG CHAIN QUILLER TENDER) [facility] T-SPOT.TB Negative SeeBelow Comment: Normal Value: Negative [...] test. T-SPOT.TB Panel A Spot Count 0 [facility] T-SPOT.TB Panel B Spot Count 0 [facility] T-SPOT.TB Negative Control Passed [facility] T-SPOT.TB Positive Control Passed [facility] Comment: Test Performed at: [employer] [facility], [employer] [address] [address] NADIA GARNER,PHD Blood 06/08/2024 3:29 PM LONG CHAIN QUILLER TENDER 06/08/2024 6:25 PM LONG CHAIN QUILLER TENDER us Florentino Rai MD LAB MICROBIOLOGY - GENERAL OR DERABLES Final Result [facility] One [facility] Department [place] [address] from Last 3 Months Insurance [facility] Member Subscriber Plan / Payer (Ef fective 2017-Present) Name:Sandra Perdue Relation to Subscriber:Self Name:Sandra Perdue Payer ID:[id number] (NAIC) Type:MEDICAID RISK OTHER Address: [address] Care Teams Measurement And Verification Engineer Relationship Specialty Start Date End Date Cm Brenner MD [address] [facility] [address] [place] [address] PCP - General Family Medicine 08/03/23
--- OUTSIDE RECORDS SUMMARY | 2024-08-02 20:25 | XMS_ITS | Clinical Summary ---
Author Organization [facility] Address [address] [place] [address] Care Team Providers Care Fiscal Accounting Clerk Name Role Phone Cm Brenner MD Primary [...] Department Care Team Description 06/08/2024 6:20 PM BALE PILER Lab [facility] [place] [facility] ([facility]) [address] [place] [phone] Screening for tuberculosis 06/08/[address] [facility] Healthcare Occupatiuonal Health [address] [facility] [address] (Third Floor) [place] [address] Florentino Rai MD Screening for tuberculosis (Primary [...] on file Legal Sex Female 11:25 AM BALE PILER Gender Identity Not on file Sexual Orientation [...] Diagnosis Comments T-SPOT.TB Routine 06/08/2024 3:29 PM BALE PILER Screening for tuberculosis from Last 3 Months Results * T-SPOT.TB Blood (06/08/2024 3:29 PM BALE PILER) [facility] T-SPOT.TB Negative SeeBelow Comment: Normal Value: Negative [...] test. T-SPOT.TB Panel A Spot Count 0 [facility] T-SPOT.TB Panel B Spot Count 0 [facility] T-SPOT.TB Negative Control Passed [facility] T-SPOT.TB Positive Control Passed [facility] Comment: Test Performed at: [facility], [place] [facility] [address] [place] [phone] NADIA GARNER,PHD Blood 06/08/2024 3:29 PM BALE PILER 06/08/2024 6:25 PM BALE PILER Florentino Rai MD LAB MICROBIOLOGY - GENERAL OR DERABLES Final Result Performing Organization Address City/State/[facility] Co de Phone Number [facility] One [facility] Department [place] [address] from Last 3 Months Insurance [facility] Member Subscriber Plan / Payer (Ef fective 2017-Present) Name:Jailyn Perduekellie Ziegler Relation to Subscriber:Self Name:IronSandra Toney Payer ID:[id number] (NA) Type:MEDICAID RISK OTHER Address: [address] Member Subscriber Plan / Payer (Ef fective 2017-Present) Name:Jailyn Perduekellie Ziegler Relation to Subscriber:Self Name:Sandra Perdue Payer ID:[id number] (NA) Type:MEDICAID RISK OTHER Address: [address] Care Teams Fiscal Accounting Clerk Relationship Specialty Start Date End Date Cm Brenner MD [address] [facility] [address] [place] [address] PCP - General Family Medicine 08/03/23
[2024-08-02 20:26] LABS: Alanine Aminotransferase 36 U/L (6-35); Albumin Level 3.8 g/dL (3.5-5.1); Alkaline Phosphatase 54 U/L (38-126); Anion Gap 7 mmol/L (4-12); Aspartate Amino Transferase 27 U/L (14-36); Bilirubin,Total 0.2 mg/dL (0.2-1.3); Blood Urea Nitrogen 6 mg/dL (7-17); Calcium 8.9 mg/dL (8.4-10.2); Carbon Dioxide 21 mmol/L (22-30); Chloride 104 mmol/L (98-107); Estimated Glomerular Filt Rate > 60; Glucose 75 mg/dL (65-110); Potassium 3.4 mmol/L (3.4-5.0); Sodium 132 mmol/L (137-145)
[2024-08-02 20:52] LABS: Influenza A QL RT-PCR Negative (Negative); Influenza B QL RT-PCR Negative (Negative); RSV RNA, RT-PCR Negative (Negative); SARS-CoV-2 RNA PCR Negative (Negative)
[2024-08-02 20:56] VITALS: BP 100/68; PULSE 92; RESP 17; O2SAT 99
== END 2024-08-02 21:01 | disposition home or self-care (01) ==
PROVIDERS: Emergency Provider Emergency Medicine
DX: O26.892 Other specified pregnancy related conditions, second trimester (principal); R51.9 Headache, unspecified; R11.0 Nausea; Z20.822 Contact with and (suspected) exposure to COVID-19; O99.332 Smoking (tobacco) complicating pregnancy, second trimester; F17.290 Nicotine dependence, other tobacco product, uncomplicated; Z79.899 Other long term (current) drug therapy; Z3A.23 23 weeks gestation of pregnancy
CPT/HCPCS: 36415; 80053; 85025; 87637; 96361; 96374; 96375; 99284; J1200; J2765; J7120

== ENCOUNTER 2024-08-15 12:33 | Outpatient (CLI) | payer OTHER, SELFPAY ==
--- NOTE | 2024-08-15 | ECG_ITS ---
Test Date: 2024-08-15 12:59:43 Measurements Intervals [place] Rate: 81 P: 47 NE: 190 QRS: 28 QRSD: 84 T: 18 QT: 354 QTc: 412 Interpretive Statements SINUS RHYTHM POSSIBLE LEFT ATRIAL ENLARGEMENT CONSIDER INFERIOR INFARCT, AGE INDETERMINATE BASELINE ARTIFACT- I, II, III, AVR, AVL, AVF ABNORMAL ECG No previous ECG available for comparison Electronically Signed On 08-15-2024 13:11:03 CDT by Harley Shah D.O.
--- OUTSIDE RECORDS SUMMARY | 2024-08-15 13:32 | XMS_ITS | Clinical Summary ---
Author Organization [facility] Address [address] [place] [address] Care Team Providers Care Real Estate Branch Manager Name Role Phone Cm Brenner MD [...] Department Care Team Description 06/08/2024 6:20 PM RESEARCH PROGRAM INTERN Lab [facility] [place] [facility] ([facility]) [address] [place] [phone] Screening for tuberculosis 06/08/2024 Orders Only [facility] Healthcare Occupatiuonal Health [address] [facility] [address] (Third Floor) [place] [address] Florentino Rai MD Screening for tuberculosis (Primary [...] on file Legal Sex Female 11:25 AM RESEARCH PROGRAM INTERN Gender Identity Not on file Sexual Orientation [...] Diagnosis Comments T-SPOT.TB Routine 06/08/2024 3:29 PM RESEARCH PROGRAM INTERN Screening for tuberculosis from Last 3 Months Results * T-SPOT.TB Blood (06/08/2024 3:29 PM RESEARCH PROGRAM INTERN) [facility] T-SPOT.TB Negative SeeBelow Comment: Normal Value: Negative [...] test. T-SPOT.TB Panel A Spot Count 0 [facility] T-SPOT.TB Panel B Spot Count 0 [facility] T-SPOT.TB Negative Control Passed [facility] T-SPOT.TB Positive Control Passed [facility] Comment: Test Performed at: [facility], [employer] [address] [place] [phone] ANDIA GARNER,PHD Blood 06/08/2024 3:29 PM RESEARCH PROGRAM INTERN 06/08/2024 6:25 PM RESEARCH PROGRAM INTERN Florentino Ria MD LAB MICROBIOLOGY - GENERAL OR DERABLES Final Result Performing Organization Address City/State/[facility] Co de Phone Number [facility] One [facility] [place] [address] from Last 3 Months Insurance [facility] Member Subscriber Plan / Payer (Ef fective 2017-Present) Name:Jailyn Perduekellie Ziegler Relation to Subscriber:Self Name:IronSandra Toney Payer ID:[id number] (NA) Type:MEDICAID RISK OTHER Address: [address] Member Subscriber Plan / Payer (Ef fective 2017-Present) Name:Jailyn Perduekellie Ziegler Relation to Subscriber:Self Name:Sandra Perdue Payer ID:[id number] (NA) Type:MEDICAID RISK OTHER Address: [address] Care Teams Real Estate Branch Manager Relationship Specialty Start Date End Date Cm Brenner MD [address] [facility] [address] [place] [address] PCP - General Family Medicine 08/03/23
--- OUTSIDE RECORDS SUMMARY | 2024-08-15 13:32 | XMS_ITS | Referral Summary ---
Author Organization [facility] Address [address] [place] [address] Care Team Providers Care Wild Life Photographer Name Role Phone Cm Brenner MD Primary Care Provider + Encounters Date Type Department Care Team Description 06/08/2024 6:20 PM CAREER AND TRANSITION TEACHER Lab [facility] Advanced Medicine [facility] Advanced Medicine ([facility]) [address] [place] [phone] Screening for tuberculosis 06/08/2024 Orders Only [facility] Occupatiuonal Health [address] [facility] Room [address] (Third Floor) [place] [address] Florentino Rai MD Screening for tuberculosis (Primary [...] on file Legal Sex Female 11:25 AM CAREER AND TRANSITION TEACHER Gender Identity Not on file Sexual Orientation [...] Diagnosis Comments T-SPOT.TB Routine 06/08/2024 3:29 PM CAREER AND TRANSITION TEACHER Screening for tuberculosis from Last 3 Months Results * T-SPOT.TB Blood (06/08/2024 3:29 PM CAREER AND TRANSITION TEACHER) [facility] T-SPOT.TB Negative SeeBelow Comment: Normal Value: [...] test. T-SPOT.TB Panel A Spot Count 0 [facility] T-SPOT.TB Panel B Spot Count 0 [facility] T-SPOT.TB Negative Control Passed [facility] T-SPOT.TB Positive Control Passed [facility] Comment: Test Performed at: [facility], [employer] [address] [place] [address] NADIA GARNER,PHD Blood 06/08/2024 3:29 PM CAREER AND TRANSITION TEACHER 06/08/2024 6:25 PM CAREER AND TRANSITION TEACHER us Florentino Rai MD LAB MICROBIOLOGY - GENERAL OR DERABLES Final Result [facility] One [facility] Department [place] [address] from Last 3 Months Insurance [facility] Member Subscriber Plan / Payer (Ef fective 2017-Present) Name:Sandra Perdue Relation to Subscriber:Self Name:Sandra Perdue Payer ID:[id number] (NAIC) Type:MEDICAID RISK OTHER Address: [address] Care Teams Wild Life Photographer Relationship Specialty Start Date End Date Cm Brenner MD [address] [facility] [address] [place] [address] PCP - General Family Medicine 08/03/23
--- OUTSIDE RECORDS SUMMARY | 2024-08-15 13:33 | XMS_ITS | Data Portability ---
Author Organization [facility] [place] Address [address] [place] [address] [place] [address] Care Team Providers Care Sole Stainer Name Role Phone BEKAH WANG Primary Care Provider [phone] Assessment Encounter Date Assessment Date Assessment LastModified by Organization Details LastModified Time 06/13/2024 06/13/2024 Patient is ___weeks . Discussed plan. [email or web address] Not available 06/13/2024 14:46:17 07/11/2024 07/11/2024 Patient is __20_weeks . Discussed plan. [email or web address] Not available 07/12/2024 08:39:49 08/08/2024 08/08/2024 Patient is _24__weeks . Discussed plan. [email or web address] Not available 08/08/2024 10:28:18 Plan of Treatment Reminders Order Date Submit Date Provider Last Modified By Organization Details Last Modified Time Details Appointments OB ROUTINE 2024 10:15A M Brisa Ng CNM Not available Not available Not available Lab None recorded. Referral None recorded. Procedures None recorded. Surgeries None recorded. Imaging electroca rdiogram 2024 025 [email or web address] [facility] (Cardiology & Emg), [address], [place], [address], 08/15/2024 08:54:11 US, obstetric , 2nd or 3rd trimester 2024 025 [email or web address] [place], [address], [place], [address], 07/11/2024 23:02:57 US, obstetric , nuchal transluce ncy 2024 025 [email or web address] [place], [facility] [address], [place], [address], 05/17/2024 08:27:19 Medication Orders None recorded. Patient TargetsNo targets recorded. Patient InstructionsNo instructions recorded. Reason for Referral None Reported. Results Created Date Observation Date Name Description Value Unit Range Abnormal Flag Note LastModifiedBy Organization Detail LastModifiedTime 05/23/1905/23/2024 [UNIT Y] ANEUP LOIDY NIPT fraction 4.9% normal Not Available [facility] [address] [place] [address], [place], [address], 05/23/2024 00:30:21 05/23/19 25 05/23/2024 [UNIT Y] ANEUP LOIDY NIPT 22Q11.2 microdeletio n LOW RISK <1 in 10,000 normal Not Available [facility] [address] [place], [address], 05/23/2024 00:30:21 05/23/19 25 05/23/2024 [UNIT Y] ANEUP LOIDY NIPT sex chromosome aneuploidy NOT DETECT ED normal Not Available [facility] [address] [place], [address], 05/23/2024 00:30:21 05/23/19 25 05/23/2024 [UNIT Y] ANEUP LOIDY NIPT monosomy X LOW RISK <1 in 10,000 normal Not Available [facility] [address] [place], [address], 05/23/2024 00:30:21 05/23/19 25 05/23/2024 [UNIT Y] ANEUP LOIDY NIPT trisomy 13 LOW RISK <1 in 10,000 normal Not Available [facility] [address] [place], [address], 05/23/2024 00:30:21 05/23/19 25 05/23/2024 [UNIT Y] ANEUP LOIDY NIPT trisomy 18 LOW RISK <1 in 10,000 normal Not Available [facility] [address] [facility], [place], [address], 05/23/2024 00:30:21 05/23/19 25 05/23/2024 [UNIT Y] ANEUP LOIDY NIPT trisomy 21 LOW RISK <1 in 10,000 normal Not Available [facility] [address] [facility], [place], [address], 05/23/2024 00:30:21 05/23/19 25 05/23/2024 [UNIT Y] ANEUP LOIDY NIPT sex MALE normal Not Available [facility] [address] [facility], [place], [address], 05/23/2024 00:30:21 05/23/19 25 05/23/2024 [UNIT Y] ANEUP LOIDY NIPT gestation SINGLE TON EGG DONOR normal Not Available [facility] [address] [facility], [place], [address], 05/23/2024 00:30:21 05/23/19 25 05/23/2024 [UNIT Y] ANEUP LOIDY NIPT for detailed report, see pdf See PDF normal Not Available [facility] [address] [facility], [place], [address], 05/23/2024 00:30:21 05/26/19 25 05/26/2024 [UNIT Y] KARI PILLAI N sickle cell disease/beta -thalassemia /hemoglobino pathies carrier screen NEGATI VE normal Not Available [facility] [address] [facility], [place], [address], 05/26/2024 17:41:00 05/26/19 25 05/26/2024 [UNIT Y] KARI LINDSEY PILLAI N alpha-thalas semia carrier screen NEGATI VE normal Not Available [facility] [address] [facility], [place], [address], 05/26/2024 17:41:00 05/26/19 25 05/26/2024 [UNIT Y] KARI PORTILLO ROSAS Ortega cystic fibrosis carrier screen NEGATI VE normal Not Available [facility] [address], [place], [address], 05/26/2024 17:41:00 05/26/19 25 05/26/2024 [UNIT Y] KARI LINDSEY Ortega spinal muscular atrophy carrier screen NEGATI VE 2 SMN1 copies , SNP not presen t normal Not Available [facility] [address], [place], [address], 05/26/2024 17:41:00 05/26/19 25 05/26/2024 [UNIT Y] KARI PORTILLO ROSAS Ortega for detailed report, see pdf See PDF normal Not Available [facility] [address], [place], [address], 05/26/2024 17:41:00 04/20/19 25 04/20/2024 CT/GC AND TRICH OMONA S VAGIN KIRAN (RRNA ), URINE chlamydia trachomatis, PCR Positi ve negati ve abnormal Posit buffy: Prese nce of C. trach omati s (by AGATA) Chlam ydia trach omati s RNA detec kelsy by PCR. Not Available [facility] (Lab) [address] [facility], [place], [address], 04/22/2024 08:06:17 04/20/19 25 04/20/2024 CT/GC AND TRICH OMONA S VAGIN KIRAN (RRNA ), URINE neisseria gonorrhoeae, PCR Negati ve negati ve Not Available [facility] (Lab) [address] [place], [address], 04/22/2024 08:06:17 04/20/19 25 04/20/2024 CT/GC AND TRICH OMONA S VAGIN KIRAN (RRNA ), URINE trichomonas vaginalis ribosomal RNA (rrna) Negati ve negati ve Not Available [facility] (Lab) [address], [place], [address], 04/22/2024 08:06:17 05/16/19 25 05/16/2024 CBC W/DIF F WBC 10.5 10'3/ uL 3.5-10 .5 Not Available [facility] (Lab) [address], [place], [address], 05/17/2024 10:37:45 05/16/19 25 05/16/2024 CBC W/DIF F RBC 4.12 10'6/ uL (based on docume nted legal sex) 3.80-5 .20 Not Available [facility] (Lab) [address], [place], [address], 05/17/2024 10:37:45 05/16/19 25 05/16/2024 CBC W/DIF F HGB 12.8 g/dL (based on docume nted legal sex) 11.6-1 5.4 Not Available [facility] (Lab) [address], [place], [address], 05/17/2024 10:37:45 05/16/19 25 05/16/2024 CBC W/DIF F HCT 39.2 % (based on docume nted legal sex) 34.0-4 5.0 Not Available [facility] (Lab) [address], [place], [address], 05/17/2024 10:37:45 05/16/19 25 05/16/2024 CBC W/DIF F MCV 95.1 fL 80.0-9 9.0 Not Available [facility] (Lab) [address], [place], [address], 05/17/2024 10:37:45 05/16/19 25 05/16/2024 CBC W/DIF F MCH 31.1 pg 27.0-3 4.0 Not Available [facility] (Lab) [address], [place], [address], 05/17/2024 10:37:45 05/16/19 25 05/16/2024 CBC W/DIF F MCHC 32.7 g/dL 32.0-3 5.5 Not Available [facility] (Lab) [address], [place], [address], 05/17/2024 10:37:45 05/16/19 25 05/16/2024 CBC W/DIF F RDW 12.1 % 11.0-1 5.0 Not Available [facility] (Lab) [address], [place], [address], 05/17/2024 10:37:45 05/16/19 25 05/16/2024 CBC W/DIF F plt 304 10'3/ uL 150-40 0 Not Available [facility] (Lab) [address], [place], [address], 05/17/2024 10:37:45 05/16/19 25 05/16/2024 CBC W/DIF F MPV 10.8 fL 8.8-12 .1 Not Available [facility] (Lab) [address], [place], [address], 05/17/2024 10:37:45 05/16/19 25 05/16/2024 CBC W/DIF F neutrophils 68.9 % 34.0-7 3.0 Not Available [facility] (Lab) [address], [place], [address], 05/17/2024 10:37:45 05/16/19 25 05/16/2024 CBC W/DIF F lymphocytes 18.9 % 15.0-5 0.0 Not Available [facility] (Lab) [address], [place], [address], 05/17/2024 10:37:45 05/16/19 25 05/16/2024 CBC W/DIF F monocytes 6.5 % 1.0-15 .0 Not Available [facility] (Lab) [address], [place], [address], 05/17/2024 10:37:45 05/16/19 25 05/16/2024 CBC W/DIF F eosinophils 4.7 % 0.0-8. 0 Not Available [facility] (Lab) [address], [place], [address], 05/17/2024 10:37:45 05/16/19 25 05/16/2024 CBC W/DIF F basophils 0.5 % 0.0-2. 0 Not Available [facility] (Lab) [address], [place], [address], 05/17/2024 10:37:45 05/16/19 25 05/16/2024 CBC W/DIF [...] separ ately if prese nt. Not Available [facility] (Lab) [address], [place], [address], 05/17/2024 10:37:45 05/16/19 25 05/16/2024 CBC W/DIF F absolute neutrophils 7.3 10'3/ uL 1.5-8. 0 Not Available [facility] (Lab) [address], [place], [address], 05/17/2024 10:37:45 05/16/19 25 05/16/2024 CBC W/DIF F absolute lymphocytes 2.0 10'3/ uL 1.0-4. 0 Not Available [facility] (Lab) [address], [place], [address], 05/17/2024 10:37:45 05/16/19 25 05/16/2024 CBC W/DIF F absolute monocytes 0.7 10'3/ uL 0.2-1. 0 Not Available [facility] (Lab) [address], [place], [address], 05/17/2024 10:37:45 05/16/19 25 05/16/2024 CBC W/DIF F absolute eosinophils 0.5 10'3/ uL 0.0-0. 6 Not Available [facility] (Lab) [address] [facility], [place], [address], 05/17/2024 10:37:45 05/16/19 25 05/16/2024 CBC W/DIF F absolute basophils 0.1 10'3/ uL 0.0-0. 3 Not Available [facility] (Lab) [address] [facility], [place], [address], 05/17/2024 10:37:45 05/16/19 25 05/16/2024 CBC W/DIF F absolute immature granulocytes 0.1 10'3/ uL 0.00-0 .10 Refer ence range s for nonbi nary/ inter sex or unspe cifie d gende r patie nts have not been estab lishe d. Pleas e refer to the follo wing table for range s estab lishe d for cisge nder patie nts and evalu ate in the clini azael itz xt of the indiv idual patie nt: https ://ron gil book. nm.or g/Gen derX Not Available [facility] (Lab) [address] [facility], [place], [address], 05/17/2024 10:37:45 05/16/19 25 05/16/2024 HEPAT ITIS B SURFA CE ANTIG EN hepatitis B surface antigen Non-re active non-re active This assay was perfo rmed using [employer] ratio n reage nts and test kits. Value s obtai richard with other assay metho ds or kits canno t be used inter thompson eably . Not Available [facility] (Lab) [address] [facility], [place], [address], 05/17/2024 10:37:46 05/16/1905/16/2024 HIV 1/2 ANTIG EN/AN TIBOD Y, REFLE X CONFI RMATI ON HIV antigen/anti body Nonrea ctive nonrea ctive HIV-1 antig en and HIV-1 /HIV- 2 antib odies were not detec kelsy. No labor atory evide nce of HIV infec tion. Not Available [facility] (Lab) [address], [place], [address], 05/17/2024 10:37:47 05/16/19 25 05/16/2024 RUBEL LA IGG ANTIB GILMA, QUANT rubella antibodies, IgG Non-Re active reacti ve abnormal Not Available [facility] (Lab) [address], [place], [address], 05/17/2024 10:37:47 05/16/19 25 05/16/2024 RUBEL LA IGG ANTIB GILMA, QUANT rubella antibodies, IgG quant <10.0 IU/mL >=10 low Non-r eacti ve (Non- Immun e) <10 IU/mL React buffy (Immu ne) > or = 10 IU/mL Not Available [facility] (Lab) [address], [place], [address], 05/17/2024 10:37:47 05/16/19 25 05/16/2024 TYPE/ RH/SC REEN ABO/Rh type A POS Not Available [facility] (Lab) [address], [place], [address], 05/17/2024 10:37:48 05/16/19 25 05/16/2024 TYPE/ RH/SC REEN antibody screen NEG Not Available [facility] (Lab) [address], [place], [address], 05/17/2024 10:37:48 05/16/19 25 05/16/2024 TYPE/ RH/SC REEN exp date 2024 23:59 Not Available [facility] (Lab) [address], [place], [address], 05/17/2024 10:37:48 05/16/19 25 05/16/2024 HEPAT ITIS C ANTIB GILMA SCREE N, REFLE X TO CONFI RMATI ON hepatitis C antibody Non-re active non-re active Antib odies to HCV Not Detec kelsy, does not exclu de the possi bilit y of expos ure to HCV. Not Available [facility] (Lab) [address], [place], [address], 05/17/2024 10:37:48 05/16/19 25 05/16/2024 HEMOG LOBIN A1C hemoglobin A1C 5.3 % 4.0-5. 6 The Ameri can Diabe vi Assoc iatio n recom mends that a prima ry goal of thera py shoul d be a HBA1C of < 7% and that physi cians shoul d reeva luate the treat ment regim en in patie nts with HBA1C value s consi stent ly > 8%. <5.7% Toshia l 5.7 - 6.4% Incre ased risk for diabe vi >=6.5 % Diagn ostic of diabe vi <7.0% Goal of thera py >8.0% Actio n sugge sted Not Available [facility] (Lab) [address], [place], [address], 05/17/2024 10:37:49 05/16/19 25 05/16/2024 RPR SCREE N, REFLE X TITER /CONF IRMAT ION RPR screen Nonrea ctive nonrea ctive Not Available [facility] (Lab) [address], [place], [address], 05/17/2024 10:37:49 05/16/19 25 05/16/2024 CT/GC AND TRICH OMONA S VAGIN KIRAN (RRNA ), URINE chlamydia trachomatis, PCR Negati ve negati ve Not Available [facility] (Lab) [address], [place], [address], 05/17/2024 13:19:05 05/16/19 05/16/2024 CT/GC AND TRICH OMONA S VAGIN KIRAN (RRNA ), URINE neisseria gonorrhoeae, PCR Negati ve negati ve Not Available [facility] (Lab) [address] [facility], [place], [address], 05/17/2024 13:19:05 05/16/19 25 05/16/2024 CT/GC AND TRICH OMONA S VAGIN KIRAN (RRNA ), URINE trichomonas vaginalis ribosomal RNA (rrna) Negati ve negati ve Not Available [facility] (Lab) [address] [facility], [place], [address], 05/17/2024 13:19:05 05/16/1905/16/2024 CULTU RE: URINE result report SEE RESULT S BELOW Test: Cultu re: Urine Speci men Sourc e: Urine - Clean Catch Speci men Type: Urine Speci men Date: 2024 1317 Resul t Date: 2024 Resul t Statu s: Final resul t Abnor mal: No Resul ting Lab: [facility] [address] [facility] [address] Tel: CULTU RE ----- ----- ----- --- No growt h in 1 day (dete ction level of 10,00 0 colon ies / ml.) Not Available [facility] (Lab) [address] [facility], [place], [address], 05/17/2024 23:02:41 05/16/1905/16/2024 drug scree n, urine Amphetamines : negati ve Not Available [facility] [address], [place], [address], 05/16/2024 11:41:01 05/16/19 25 05/16/2024 drug scree n, urine Cannabinoids : negati ve Not Available [facility] [address], [place], [address], 05/16/2024 11:41:01 05/16/19 25 05/16/2024 drug scree n, urine Cocaine: negati ve Not Available [facility] [address], [place], [address], 05/16/2024 11:41:01 05/16/19 25 05/16/2024 drug scree n, urine Opiates: negati ve Not Available [facility] [address], [place], [address], 05/16/2024 11:41:01 05/16/19 25 05/16/2024 drug scree n, urine Phenocyclidi ne: negati ve Not Available [facility] [address], [place], [address], 05/16/2024 11:41:01 05/16/19 25 05/16/2024 drug scree n, urine Barbiturates : negati ve Not Available [facility] [address], [place], [address], 05/16/2024 11:41:01 05/16/19 25 05/16/2024 drug scree n, urine Benzodiazepi lara: negati ve Not Available [facility] [address], [place], [address], 05/16/2024 11:41:01 05/16/19 25 05/16/2024 drug scree n, urine Ethanol: negati ve Not Available [facility] [address], [place], [address], 05/16/2024 11:41:01 05/16/19 25 05/16/2024 drug scree n, urine Hallucinogen s: negati ve Not Available [facility] [address], [place], [address], 05/16/2024 11:41:01 05/16/19 25 05/16/2024 drug scree n, urine Inhalants: negati ve Not Available [facility] [address], [place], [address], 05/16/2024 11:41:01 05/16/19 25 05/16/2024 drug scree n, urine Anabolic Steroids: negati ve Not Available [facility] [address], [place], [address], 05/16/2024 11:41:01 04/20/19 25 04/20/2024 US, obste tric, 1st trime ster No observ ation record ed. [email or web address] [address], [place], [address], 04/20/2024 14:10:26 05/16/19 25 05/16/2024 US, obste tric, nucha l trans lucen cy No observ ation record ed. [email or web address] [facility] [address], [place], [address], 05/16/2024 13:05:59 05/16/19 25 05/16/2024 US, obste tric, nucha l trans lucen cy No observ ation record ed. [email or web address] [address], [place], [address], 05/17/2024 22:28:37 07/12/19 25 07/11/2024 US, obste tric, follo w-up No observ ation record ed. [email or web address] [facility] [address], [place], [address], 07/12/2024 22:59:07 07/12/19 25 07/11/2024 US, obste tric, 2nd or 3rd trime ster No observ ation record ed. [email or web address] [address], [place], [address], 07/12/2024 22:31:30 Result Notes None recorded. Problems Name Problem SNOMED Code Status Onset Date Resolution Date Notes Provider Name and Address Organization Details Recorded Time Educatio n Completed 201708/01/2020 Encounte r for oth general cnsl and advice on contrace ption;Pr actice ID: [id number] Janis brandon [facility] 17:54:18 Infectio n screenin g Completed 201708/01/2020 Encounte r for screenin g for oth infec/pa rastc diseases ;Practic e ID: 0001 Janis brandon, [facility] 17:54:20 Syphilis test finding [id number] Completed 201708/01/2020 Encntr screen for infectio ns w sexl mode of transmis s;Record ed Elsewher e: No Locat ion: [facility] S ource: EHR Manager Security And Safety campos: N Rayray ce ID: [id number] Lee lable Time: 09:45:00 AM 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 17:54:26 Abnormal weight gain [id number] Completed 201808/01/2020 Abnormal weight gain;Rec orded Elsewher e: No Locat ion: [facility] S ource: EHR Manager Security And Safety campos: N Rayray ce ID: [id number] Lee lable Time: 10:45:00 AM Janis brandon [facility] 17:54:14 Vaginola bial hernia Completed 201808/01/2020 Other specifie d noninfla mmatory disorder s of vagina;P ractice ID: 0001 Janis brandon, [facility] 17:54:[address] Concept Completed 201808/01/2020 Encounte r for surveill ance of other contrace ptives;P ractice ID: 0001 Janis brandon, [facility] 17:54:27 Acute vaginiti s [id number] Completed 201908/01/2020 Acute vaginiti s;Practi ce ID: 0001 Janis brandon, [facility] 17:54:16 Implanta tion of subcutan eous contrace ptive Completed 201808/01/2020 Enctr for init prescrip tion of implntbl subderma l contrace p;Record ed Elsewher e: No Locat ion: [facility] S ource: EHR Manager Security And Safety campos: N Practi ce ID: [id number] Lee lable Time: 11:15:00 AM Janis brandon, [facility] 17:54:[address] Concept Completed 201708/01/2020 Encntr for routine child health exam w/o abnormal findings ;Recorde d Elsewher e: No Locat ion: [facility] S ource: EHR Manager Security And Safety campos: N Practi ce ID: [id number] Lee lable Time: 09:45:00 AM Janis brandon, [facility] 17:54:25 Contrace ption care manageme nt Completed 201808/01/2020 Encounte r for contrace ptive manageme nt, unspecif ied;Jase rded Elsewher e: No Locat ion: [facility] S ource: EHR Manager Security And Safety campos: N Practi ce ID: [id number] Lee lable Time: 10:45:00 AM Janis brandon [facility] 17:54:[address] Concept Completed 201808/01/2020 Encntr for general adult medical exam w/o abnormal findings ;Recorde d Saad e: No Locat ion: [place] [facility] S ource: EHR Manager Security And Safety campos: N Practi ce ID: [id number] Lee lable Time: 10:45:00 AM Janis Bristol aleksandr, [facility] 17:54:23 Pregnanc y [id number] Active 2024 Stacy brandon [facility] 11:21:46 Asthma 725622753 Active well controll ed on AirDuo and [place] ast, rare albutero l use CLAUDIA BENDER MD [address], [place], [address], [facility] 5 22:13:30 Rubella non-immu ne 053332905 Active CLAUDIA BENDER MD [address], [place], [address], [facility] 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 5 22:29:59 Herpes simplex 43814849 Active HSV1 Kaity brandon, [facility] 5 22:29:59 Palpitat ions 01481477 Active 2024 Holter monitor 72 order faxed 08/04 Kaity [facility] 16:54:15 Problem Notes None recorded. Procedures Surgical History Date Name Laterality Status Provider Name and Address Organization Details Recorded Time 07/21/19 24 Date of Last Pap Smear completed Stacy Cobb [facility] 02/23/2024 15:45:51 05/08/19 24 termination of completed Jessica Tyler [facility] 07/21/2023 16:43:29 04/28/19 23 Control Implant Removal completed Sneha Peña [facility] [address] [place], [address], [facility] 04/28/2022 17:49:40 09/03/19 22 Control Implant Removal completed Sneha Peña [facility] [address], [place], [address], [facility] 09/02/2021 13:33:14 09/03/19 22 Control Implant Insertion completed Sneha Peña [facility] [address], [place], [address], [facility] 09/02/2021 13:33:30 04/19/19 18 Tonsillectomy completed Eliza Bell [facility] 07/11/2024 12:31:48 Imaging Results Imaging Date Name Status LastModified by Organization Details LastModified Time 04/20/2024 US, obstetric, 1st trimester completed [email or web address] Marc [address], [place], [address], 04/20/2024 14:10:26 05/16/2024 US, obstetric, nuchal translucency completed [email or web address] [facility] [address], [place], [address], 05/16/2024 13:05:59 05/16/2024 US, obstetric, nuchal translucency completed [email or web address] [address], [place], [address], 05/17/2024 22:28:37 07/11/2024 US, obstetric, follow-up completed [email or web address] [facility] [address], [place], [address], 07/12/2024 22:59:07 07/11/2024 US, obstetric, 2nd or 3rd trimester completed [address], [place], [address], 07/12/2024 22:31:30 Procedure Notes None recorded. Medical Equipment None Reported. Allergies Allergen ID Allergen Name Allergen Category Reaction Reaction Severity Criticality Documentation Date Start Date Code Code System Note Provider Name and Address Organization Details Recorded Time 68882 amoxicill in medicatio n Not available Not available Not available 04/05/2020 723 RxNorm Comme nt: [facility]at [facility]; Not Available [facility] 0 14:17:51 35529 fluticaso ne Not available Not available Not available Not available 05/03/[address] [facility] 1 14:24:28 58001 Flovent medicatio n Not available Not available Not available 08/02/2020 [address] [facility] 1 14:24:39 75247 Substance with sulfonami de structure and antibacte rial mechanism of action (substanc e) medicatio n Not available Not available Not available 02/23/2024 [address] [facility] 4 15:45:13 Medications Name Sig Start [...] route every 12 hours 06/15 completed Prescrib richi Nash e: No Locat ion: [facility] odify By: [email or web address] ich Enco unter DateTime [...] BY MOUTH THREE TIMES A DAY NEEDED 08/08 completed Not Available Not Available Not Available mupirocin 2 % topical ointment APPLY [...] sulfate HFA 90 mcg/actua tion aerosol inhaler INHALE 2 PUFFS BY MOUTH EVERY 4 HOURS [...] Elsewher e: No^Stop Date: [id number] Locatio n: [facility] odify By: [email or web address] Encount er DateTime : 09/09/19 11:15:00 AM Not Available Not Available Not Available Flonase Allergy Relief 50 mcg/actua tion nasal spray,elias pension Anton 1 spray every day by intranas al route. 04/28 completed Not Available Not Available Not Available Nuvessa 1.3 % (65 mg/5 gram) vaginal gel Insert 1 applicat orful by vaginal route at bedtime for 1 day. 10/28 completed Not Available Not Available Not Available fluticaso ne 113 mcg-salme terol 14 mcg/actua tion breath activated powdr TAKE 1 PUFF BY MOUTH TWICE A DAY 08/22 completed Not Available Not Available Not Available AirDuo RespiClic k 232 mcg-14 mcg/actua tion breath activated INHALE 1 PUFF BY MOUTH 2 TIMES A DAY X 30 DAYS active Not Available Not Available No [...] Updated DateTime 05/16/2024 162.56 cm 33 kg/m2 07380.74 g 116 mm[Hg] 80 mm[Hg] [facility] 11:12:59 Date Recorded Body height Body mass index (BMI) Body weight Systolic blood pressure Diastolic blood pressure Provider Name and Address Organization Details Last Updated DateTime 06/13/2024 162.56 cm 33.6 kg/m2 99885.10 452 g 110 mm[Hg] 72 mm[Hg] Stacy Cobb [facility] 14:47:21 Date Recorded Body weight Body mass index (BMI) Body height Systolic blood pressure Diastolic blood pressure Provider Name and Address Organization Details Last Updated DateTime 07/11/2024 09325.47 4 g 34.3 kg/m2 162.56 cm 124 mm[Hg] 78 mm[Hg] Eliza Bell [facility] 12:39:50 Date Recorded Body height Body mass index (BMI) Body weight Systolic blood pressure Diastolic blood pressure Provider Name and Address Organization Details Last Updated DateTime 08/08/2024 162.56 cm 35 kg/m2 84229.84 g 127 mm[Hg] 86 mm[Hg] Eliza Bell [facility] 10:18:20 Social History Question Answer Notes LastModified by Organizat ion Details LastModified Time Tobacco Smoking Status Former Smoker Galilea brandon [facility] 05/04/2020 11:50:47 What Is Your Level Of Alcohol Consumption? None [email or web address] Information not available 07/11/2024 If You Are , What Was Your Level Of Alcohol Consumption Prior To ? Occasional [email or web address] Information not available 07/11/2024 How Many Years [...] 05/04/2020 When Did You Quit Smoking? 1-5yearssincel eldon Information not available 05/04/2020 How Many Years [...] Anxious, Or Unable To Sleep At Night)? [id number] Information not available 10/24/2020 Do You Use [...] of lung Not available 15:31:00 Mother Malignant neoplasm of ovary Not available 2020 15:31:21 Paternal [...] of Flow (days) 4 Current Control Method Are cycles usually normal Y Date of [...] SNOMED-CT Code Diagnosis ICD10 Code Diagnosis Note [id number] Sneha ePña , [facility] [address],[place] [address] 05/04/2020 11:41:44 05/08/2020 11:06:12 Vaginitis 50971161 N76.0 We agreed to trial of 3mos of vaginal boric acid to help reset pH. In depth review/cou nsel of VCG sheet. List of VCG's given & will make other necessary changes. Will contact with results of Ext BV/Yeast panel. If we are not able to improve or resolve this issue consider referral to [facility] vulvar clinic. RTO x 3mos med check Time spent in visit is a total of 26 mins with at least 50% of visit consisting of counseling and review of plan of care. [id number] Sneha Peña , [facility] [address] [address] 05/31/2020 11:44:00 05/31/2020 12:16:36 Gynecologic examination 71439746 Z01.419 Take Calcium with Vitamin D 1200mg [...] if desired. Primary pap next year Vaginitis 48425726 N76.0 Continue vaginal boric acid regimen for another 3-6mos (use 2x a week) Samples given but can also buy off [employer]. Follow VCG's. RTO if issues [id number] Sneha Peña [facility] [address],[place] [address] 08/02/2020 13:50:46 08/02/2020 14:33:32 Vaginitis 31669470 N76.0 Doing well on BA therapy. Will [...] this patient s visit, including available hand inorganic chemical technician upon arrive, temperatur e check and being asked a series of screening questions. All staff wore face coverings during this encounter, as well as provided additional cleaning and sanitizing of all surfaces, including countertop s, pens, chairs, door handles, light switches, etc, prior to and following the patient s visit. [id number] Sneha Peña , [facility] [address],[place] [address] 08/22/2021 15:21:31 09/03/2021 15:59:17 Gynecologic examination 17824101 Z01.419 Take Calcium with Vitamin D 1200mg [...] na Routine Labs na Pain in pelvis 09871025 R10.2 Update TVUS with F/U Contracept ion care management 185689189 Z30.9 Due for nexplanon removal/re insertion which may help with period cramping that has returned.W ill schedule [id number] Merarimarissa Zimmerman [facility] [address] [address] 08/27/2021 16:22:30 08/27/2021 17:11:19 Pain in pelvis 50457175 R10.2 [id number] [facility] [address] [address] 09/02/2021 12:55:24 09/02/2021 13:24:15 Screening procedure 76341256 Z13.9 Cyst of right ovary 1223 226572 2729525 N83.201 TVUS ordered for r/p TVUS x 8wksDiscus sed TVUS current with all questions answeredUn don g verbalized . Removal of subcutaneous contraceptive 673294652 Z30.46 Removal site was cleansed with betadine and 3cc of lidocaine used for anesthesia . Device was removed in normal fashion without difficulty . Steri stips and pressure bandage placed. Implantati on of subcutaneous contraceptive 742663798 Z30.9 Patient is here currently on her [...] the insertion site Binge eating disorder 43 0392151 F50.81 Has a counselor but discussed resources specialize in ED'sWill send this to her in the mailIf needs any further help with referrals please contact our office.Sug gested team that specialist in ED s: Counselors /Spot Billing Clerk /Psychiatr istSeeing counselor now. [id number] Adwoa Escobar [facility] [address],[place] [address] 10/28/2021 12:20:14 10/28/2021 13:33:45 Cyst of right ovary 6604815587 8770007 N83.291 [id number] Sneha Peña [facility] [address],[place] [address] 04/28/2022 14:57:33 04/29/2022 15:17:38 Urinary symptoms 474927675 R39.9 wnl Removal of subcutaneous contraceptive 086592350 Z30.46 Removal site was cleansed with betadine and 3cc of lidocaine used for anesthesia . Device was removed in normal fashion without difficulty . Steri stips and pressure bandage placed. Vaginitis 37406984 N76.0 Suspect BV on examSample of Nuvessa givenWorke d well for her last time she used it.Swab sent to confirm per pt request Time spent in visit is a total of 15 mins with at least 50% of visit consisting of counseling and review of plan of care not including time spent on procedure. [id number] Sneha Peña [facility] [address],[place] [address] 2022 10:59:15 2022 11:44:10 Urinary symptoms 475656622 R39.9 Urinen cx sentSTD sent for new sexual partnerRx sent Counseled on medication R/B's, Most common side effects, & use. All questions were answered to patient satisfacti on. Time spent in visit is a total of 15 mins with at least 50% of visit consisting of counseling and review of plan of care. [id number] Sneha Peña [facility] [address],[place] [address] 10/28/2022 18:22:44 10/29/2022 10:44:24 Sexually transmitted infectious disease 8929569 A64 Updated std screen sentSwab & serumroddy reach out with resultsNew partner Time spent in visit is a total of 15 mins with at least 50% of visit consisting of counseling and review of plan of care. Vaginitis 54328020 N76.0 Suspect yeast on examRx sent Counseled on medication R/B's, Most common side effects, & use. All questions were answered to patient satisfacti on. [id number] Sneha Peña [facility] [address] [address] 07/21/2023 16:18:58 07/21/2023 17:00:51 Gynecologic examination 37141249 Z01.419 Z11.3 Z11.8 Take Calcium with Vitamin [...] c Screen discussedC olon Screen naDexa Screen [facility] [place] Labs na [id number] CLAUDIA BENDER MD [facility] [address],[place] [address] 02/23/2024 15:38:34 02/23/2024 16:43:39 Pain in pelvis 02606532 R10.2 - patient reports 2-3 month hx [...] other etiology Pain assoc iated with defecation 854582188 K62.89 [id number] [facility] [address],[place] [address] 03/08/2024 16:52:37 03/09/2024 12:40:04 Irregular periods 33188752 N92.6 [id number] [facility] [address],[place] [address] 04/20/2024 10:25:29 04/20/2024 11:00:40 [id number] CLAUDIA BENDER MD [facility] [address],[place] [address] 04/20/2024 10:25:43 04/20/2024 11:22:58 test positive 550088657 Z32.01 1. Exam today within normal limits.2. Ultrasound today confirms GA and viability. EDC . GC/Clamydi a testing done: will f/u as indicated. 4. ACOG guidelines and plan of care for reviewed with patient. All questions answered.5 . Return to office at 12 weeks for new OB visit6. Will need new OB labs at next visit.7. Genetic screening: desires. Asthma in 7230 927841 0292 J45.909 - well controlled on montelukas t and AirDuo; does have rescue inhaler but does not use often [id number] [facility] [address],[place] [address] 05/16/2024 10:19:38 05/16/2024 11:07:39 screening 580235612 Z36.82 Z3A.12 [id number] CLAUDIA BENDER MD [facility] [address],[place] [address] 05/16/2024 10:19:48 05/17/2024 14:07:08 screening 507163495 Z36.0 Genetic in vestigation procedure 37973539 Z31.430 Gestation period, 12 weeks 46142369 Z3A.12 Asthma in 7230 983373 9312 J45.909 - well controlled on montelukas t and AirDuo; does have rescue inhaler but does not use often [id number] CLAUDIA BENDER MD [facility] [address],[place] [address] 06/13/2024 14:35:38 06/13/2024 15:22:21 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 Asthma 990016693 J45.90 9 - well controlled on DuoNeb and montelukas t- continue to monitor Gestation period, 16 weeks 74372371 Z3A.16 - continue PNV [id number] [facility] [address],[place] [address] 07/11/2024 11:24:21 07/11/2024 12:59:51 screening for malformation 401174429 Z36.3 Z3A.20 [id number] Brisa Ng CNM [facility] [address],[place] [address] 07/11/2024 11:24:32 07/12/2024 09:45:02 Gestation period, 20 weeks 75243520 Z3A.20 continue vitamin [id number] Brisa Ng CNM [facility] [address],[place] [address] 08/08/2024 09:59:38 08/08/2024 11:17:19 Electrocardiogram abnormal 121003775 R94.31 Gestation period, 24 weeks 333393931 Z3A.24 Health Concerns Section Related Observation LastModified by Organization Detai ls LastModified Time None Recorded Concern Status LastModified by Organization Details LastModified Time None Recorded Advance Directives Directive None Recorded Payers Encounter Date Sequence Insurance Name Policy Number Policy Odonnell Covered Member ID Odonnell Member ID Guarantor Name 05/16/2024 1 [facility] (MEDICAID HMO) [id number] Sandra Short [id number] Sandra A Short 06/13/2024 1 [facility] (MEDICAID HMO) [id number] Sandra Short [id number] Sandra A Short 07/11/2024 1 [facility] (MEDICAID HMO) [id number] Sandra Short [id number] Sandra A Short 07/11/2024 1 [facility] (MEDICAID HMO) [id number] Sandra Short [id number] Sandra A Short 08/08/2024 1 [facility] (MEDICAID HMO) [id number] Sandra Short [id number] Sandra A Short OBGyn Episode Ob Episode Information Episode Created Date Number of Fetuses Patient Bloodtype Patient rh Status Prepregnancy Weight lbs Domestic Partner Domestic Partner Phone Father Name Product Safety Associate Status 07/21/19 1 CLOSED Fetus Data First Name Last Name Admitted to NICU Weight (g) Sex Living Outcome Pediatric Complications Fetus ID Race Codes Race Delivery Type , Induced 47915 Attila Calculation Initial Attila Date Initial Exam [...] Domestic Partner Domestic Partner Phone Father Name Product Safety Associate Status 05/16/19 1 OPEN Fetus Data First Name Last Name Admitted to NICU Weight (g) Sex Living Outcome Pediatric Complications Fetus ID Race Codes Race Delivery Type 30514 Problems Problem Notes Problem Name Start Date End Date Resolution Snomed Code Not e Asthma 232403383 well contr olled on AirDuo and montelukast, rare albuterol use Palpitations 08/04/2024 30549086 Holter monitor 72 order faxed 08/04 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 767165527 Attila Calculation Initial Attila Date Initial Exam [...] Date Ultra Sound Latest Days Gestation 0 [email or web address] 05/17/2024 11/28/19 25 0 Pre- Flowsheet Flowsheet Date 05/16/2024 Haro Score Blood Edema Fundus Height Fundus Units Glucose Ketones Leukocytes Nitrite Labor Signs Protein Cervic Dilation Cervic Effacement Cervic Station Type Weight in lbs Pre/Post Dialysis Refused Weight 192.076826316436 BP Diastolic BP Location Tested BP Systolic BP Type 80 L arm 116 sitting Fetus Heart Rate Present A Present Fetus Movement Comments Patient presents to [facility]. complicated by asthma, well controlled. She [...] Type Weight in lbs Pre/Post Dialysis Refused 196.860854116033 BP Diastolic BP Location Tested BP Systolic [...] Type Weight in lbs Pre/Post Dialysis Refused 200.981037687254 BP Diastolic BP Location Tested BP Systolic BP Type 78 124 Fetus Heart Rate Present Fetus Movement A Yes Comments Patient is having some pelvi c pain, back pain, nausea and vomiting. reviewed anatomy complete, precautions and education f/u 4 weeks Flowsheet Date 08/08/2024 Haro Score Blood Edema Fundus Height Fundus Units Glucose Ketones Leukocytes Nitrite Labor Signs Protein Cervic Dilation Cervic Effacement Cervic Station neg none 24 cm Type Weight in lbs Pre/Post Dialysis Refused Weight 204.423031251398 BP Diastolic BP Location Tested BP Systolic BP Type 86 127 Fetus Heart Rate Present A 145 Fetus Movement A Yes Comments Patient is having heart palp atations, headaches, nausea and vomiting. saw ekg results from last year most likely due to placement of leads but will rpt and also follow up with director cardiac, precautions and education reviewed, plan 4 week GCT , +FM Menstrual History Last Menstrual Date Menses Monthly [...]
--- OUTSIDE RECORDS SUMMARY | 2024-08-15 13:33 | XMS_ITS | Data Portability ---
Author Organization [facility] Address [address] [facility] [place] [address] Care Team Providers Care Health Coach Name Role Phone BEKAH BRENNER Primary Care Provider [phone] Assessment Encounter Date Assessment Date Assessment LastModified by Organization Details LastModified Time 08/09/2023 08/09/2023 Pt's case was discussed w/resident. Documentation was reviewed, and I agree w/resident's note. Dr. Rascon [email or web address] Not available 08/13/2023 17:32:56 Plan of Treatment Reminders Order Date Submit Date Provider Last Modified By Organization Details Last Modified Time Details Appointments ANNUAL 30 2024 10:30A M Nelly Zavala MD Not available Not available Not available Lab Mycobact erium tubercul osis stimulat ed gamma interfer on, qual, blood 2023 024 [facility], [address] [place] [address], [address], [place], [address], 11/26/2023 20:09:05 rapid strep group A, throat 2023 024 MA[facility] In-Office Order, Internal Use Only DO Not Attach Compendium DO Not Attach Compendium, Do Not Delete/merge, [id number] 08/10/2023 09:02:59 rapid strep group A, throat 2023 024 MAURIZIO In-Office Order, Internal Use Only DO Not Attach Compendium DO Not Attach Compendium, Do Not Delete/merge, [id number] 08/10/2023 09:01:41 streptoc occus group A, culture, throat 2023 024 [facility], [address] [facility], [address], [place], [address], 08/13/2023 06:17:05 rapid flu (A+B) 2023 024 MAURIZIO In-Office Order, Internal Use Only DO Not Attach Compendium DO Not Attach Compendium, Do Not Delete/merge, [id number] 08/11/2023 10:53:04 rapid SARS CoV 2 Ag, QL IA, respirat ory specimen 2023 024 MA[facility] In-Office Order, Internal Use Only DO Not Attach Compendium DO Not Attach Compendium, Do Not Delete/merge, [id number] 08/11/2023 10:53:17 CBC w/ auto diff 2023 024 [facility], [address] [place] [address], [address], [place], [address], 07/30/2023 06:19:19 TSH, ultra-se nsitive, serum 2023 024 [facility], [address] [place] [address], [address], [place], [address], 07/30/2023 06:19:19 rapid strep group A, throat 2023 024 [email or web address], [address] [place] [address], [address], [place], [address], 08/24/2023 14:25:11 influenz a virus A + B + SARS-CoV -2 (COVID19 ) Ag panel, rapid IA, upper respirat ory specimen 2023 024 MA[facility] In-Office Order, Internal Use Only DO Not Attach Compendium DO Not Attach Compendium, Do Not Delete/merge, [id number] 08/17/2023 09:10:35 Referral physical therapis t referral 2023 [email or web address] [facility], [address] , [place], [address], 03/10/2024 13:59:06 nutritio nist/sahina humphriesian referral - Pt would like to lose weight and has distorte d eating habit's. Is vegetari an. [address], [address] [place] [address] [place], [address], 10/26/2023 00:10:21 otolaryn gologist referral - Pt has lump in throat feeling, and change in voice. 2023 024 unique Hightower MD, [address] [place] [address] , [place] [address], [place], [address], 10/13/2023 21:36:27 Procedures None recorded . Surgeries None recorded . Imaging US, thyroid - Possible nodule in L upper lobe thyroid. 2023 024 [email or web address] [facility], [address] [facility] [place], [address], 10/26/2023 00:10:06 Medication Orders cetirizi ne 10 mg tablet 2023 [id number], [address] [place], [address], 11/24/2023 10:37:28 ipratrop ium bromide 21 mcg (0.03 %) nasal spray 2023 024 [id number], [address] [place], [address], 11/24/2023 10:35:56 Chlorase ptic Throat Connell 1.4 % aerosol 2023 024 [id number], [address] [place], [address], 11/24/2023 10:37:31 Pepcid 20 mg tablet 2023 024 etodaroma [id number], [address] [place], [address], 11/24/2023 10:35:47 Patient TargetsNo targets recorded. Patient Instructions Encounter Date Encounter Id Patient Instructions Last Modified By Organization Details Last Modified Time 04/14/2023 [id number] Telehealth Attending Physician Attestation I personally spoke with the patient along with the resident on the phone. I was physically present for more than 50% of the phone conversation. I have reviewed the documentation and agree with the history, physical findings, work-up, and medical decision making as recorded. Zina Hameed MD [email or web address] Not available 04/28/2023 09:48:13 07/29/2023 [id number] Quitting Tobacco : Care Instructions [email or web address] Not available 07/29/2023 10:17:52 Attending Physician Addendum I did not personally see or examine the patient with the resident. I was physically present to provide indirect supervision through entire encounter. I have reviewed the documentation and agree with the history, physical findings, work-up, and medical decision making as recorded. Paradise Ruiz MD [email or web address] Not available 08/16/2023 10:53:30 11/24/2023 [id number] A healthy lifestyle: care instructions [email or web address] Not available 11/24/2023 19:49:24 Attending Physician Attestation I did not personally see or examine the patient with the resident. I was physically present to provide indirect supervision through entire encounter. I have reviewed the documentation and agree with the history, physical findings, work-up, and medical decision making as recorded. Zina Hameed MD [email or web address] Not available 11/29/2023 11:26:59 01/04/2024 [id number] A healthy lifestyle: care instructions Not available 01/05/2024 21:54:36 I was present in the clinic to discuss this patient at the time of the visit. 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 Is vegetarian. Referring Physician: Bekah Brenner, Geological E Logger, Encounter Date: 07/29/2023 Bullet Slugs Inspector Referral fo r Feeling of lump in throat Pt has lump in throat feeling, and change in voice. Referring Physician: Bekah Brenner, Geological E Logger, Encounter Date: 07/29/2023 Physical Therapist Referral for Pain of left ankle joint Left ankle chronic pain. Prior sports injury. No acute trauma. Referring Physician: Nelly Zavala, Geological E Logger, Encounter Date: 01/04/2024 Results Created Date Observation Date Name Description Value Unit Range Abnormal Flag Note LastModifiedBy Organization Detail LastModifiedTime 03/26/2003/26/2023 pregn columba test, urine HCG negati ve Not Available In-Office Order Internal Use Only DO Not Attach Compendium DO Not Attach Compendium, Do Not Delete/merge, [id number] 03/26/2023 11:25:03 07/29/1907/30/2023 TSH RFX ON ABNOR MAL TO FREE T4 TSH 1.170 uIU/m L 0.450- 4.500 Not Available [facility] ([facility]) [address] [place], [address], 07/30/2023 06:19:19 07/29/1907/29/2023 CBC WITH DIFFE RENTI AL/PL ATELE T WBC 8.0 x10e3 /uL 3.4-10 .8 Not Available [facility] ([facility]) [address] [place], [address], 07/30/2023 06:19:19 07/29/1907/29/2023 CBC WITH DIFFE RENTI AL/PL ATELE T RBC 4.19 x10e6 /uL 3.77-5 .28 Not Available [facility] ([facility]) [address] [place], [address], 07/30/2023 06:19:19 07/29/1907/29/2023 CBC WITH DIFFE RENTI AL/PL ATELE T hemoglobin 13.6 g/dL 11.1-1 5.9 Not Available [facility] ([facility]) [address] [facility], [place], [address], 07/30/2023 06:19:19 07/29/19 24 07/29/2023 CBC WITH DIFFE RENTI AL/PL ATELE T hematocrit 41.5 % 34.0-4 6.6 Not Available [facility] ([facility]) [address] [facility], [place], [address], 07/30/2023 06:19:19 07/29/1907/29/2023 CBC WITH DIFFE RENTI AL/PL ATELE T MCV 99 fL 79-97 above high normal Not Available [facility] ([facility]) [address] [facility], [place], [address], 07/30/2023 06:19:19 07/29/1907/29/2023 CBC WITH DIFFE RENTI AL/PL ATELE T MCH 32.5 pg 26.6-3 3.0 Not Available [facility] ([facility]) [address] [facility], [place], [address], 07/30/2023 06:19:19 07/29/1907/29/2023 CBC WITH DIFFE RENTI AL/PL ATELE T MCHC 32.8 g/dL 31.5-3 5.7 Not Available [facility] ([facility]) [address] [place], [address], 07/30/2023 06:19:19 07/29/1907/29/2023 CBC WITH DIFFE RENTI AL/PL ATELE T RDW 11.9 % 11.7-1 5.4 Not Available [facility] ([facility]) [address] [place], [address], 07/30/2023 06:19:19 07/29/1907/29/2023 CBC WITH DIFFE RENTI AL/PL ATELE T platelets 308 x10e3 /uL 150-45 0 Not Available [facility] ([facility]) [address] [facility], [place], [address], 07/30/2023 06:19:19 07/29/19 24 07/29/2023 CBC WITH DIFFE RENTI AL/PL ATELE T neutrophils 66 % notest ab. Not Available [facility] ([facility]) [address] [facility], [place], [address], 07/30/2023 06:19:19 07/29/19 24 07/29/2023 CBC WITH DIFFE RENTI AL/PL ATELE T lymphs 20 % notest ab. Not Available [facility] ([facility]) [address] [facility], [place], [address], 07/30/2023 06:19:19 07/29/19 24 07/29/2023 CBC WITH DIFFE RENTI AL/PL ATELE T monocytes 8 % notest ab. Not Available [facility] ([facility]) [address] [facility], [place], [address], 07/30/2023 06:19:19 07/29/19 24 07/29/2023 CBC WITH DIFFE RENTI AL/PL ATELE T eos 4 % notest ab. Not Available [facility] ([facility]) [address] [facility], [place], [address], 07/30/2023 06:19:19 07/29/19 24 07/29/2023 CBC WITH DIFFE RENTI AL/PL ATELE T basos 1 % notest ab. Not Available [facility] ([facility]) [address] [facility], [place], [address], 07/30/2023 06:19:19 07/29/19 24 07/29/2023 CBC WITH DIFFE RENTI AL/PL ATELE T neutrophils (absolute) 5.3 x10e3 /uL 1.4-7. 0 Not Available [facility] ([facility]) [address] [facility], [place], [address], 07/30/2023 06:19:19 07/29/19 24 07/29/2023 CBC WITH DIFFE RENTI AL/PL ATELE T lymphs (absolute) 1.6 x10e3 /uL 0.7-3. 1 Not Available [facility] ([facility]) [address] [facility], [place], [address], 07/30/2023 06:19:19 07/29/19 24 07/29/2023 CBC WITH DIFFE RENTI AL/PL ATELE T monocytes(ab solute) 0.7 x10e3 /uL 0.1-0. 9 Not Available [facility] ([facility]) [address] [facility], [place], [address], 07/30/2023 06:19:19 07/29/19 24 07/29/2023 CBC WITH DIFFE RENTI AL/PL ATELE T eos (absolute) 0.3 x10e3 /uL 0.0-0. 4 Not Available [facility] ([facility]) [address] [facility], [place], [address], 07/30/2023 06:19:19 07/29/19 24 07/29/2023 CBC WITH DIFFE RENTI AL/PL ATELE T baso (absolute) 0.1 x10e3 /uL 0.0-0. 2 Not Available [facility] ([facility]) [address] [facility], [place], [address], 07/30/2023 06:19:19 07/29/19 24 07/29/2023 CBC WITH DIFFE RENTI AL/PL ATELE T immature granulocytes 1 % notest ab. Not Available [facility] ([facility]) [address] [facility], [place], [address], 07/30/2023 06:19:19 04/11/07/29/2023 CBC WITH DIFFE RENTI AL/PL ATELE T immature grans (abs) 0.1 x10e3 /uL 0.0-0. 1 Not Available [facility] ([facility]) [address] [facility], [place], [address], 07/30/2023 06:19:19 08/10/19 24 08/13/2023 BETA STREP GP A CULTU RE beta strep gp A culture Negati ve Refer ence Range : Negat buffy Not Available [facility] ([facility]) [address] [facility], [place], [address], 08/13/2023 06:17:05 08/10/19 24 08/10/2023 rapid strep group A, throa t Strep negati ve Not Available In-Office Order Internal Use Only DO Not Attach Compendium DO Not Attach Compendium, Do Not Delete/merge, 08/09/2023 15:47:29 08/10/19 24 08/10/2023 rapid strep group A, throa t Strep negati ve Not Available In-Office Order Internal Use Only DO Not Attach Compendium DO Not Attach Compendium, Do Not Delete/merge, 08/09/2023 16:17:12 08/11/19 24 08/11/2023 rapid SARS CoV 2 Ag, QL IA, respi rator y speci men rapid SARS CoV 2 Ag, QL IA, respiratory specimen negati ve Not Available In-Office Order Internal Use Only DO Not Attach Compendium DO Not Attach Compendium, Do Not Delete/merge, 08/09/2023 16:17:28 08/11/19 24 08/11/2023 rapid flu (A+B) Flu A negati ve Not Available In-Office Order Internal Use Only DO Not Attach Compendium DO Not Attach Compendium, Do Not Delete/merge, 08/09/2023 16:17:28 08/11/19 24 08/11/2023 rapid flu (A+B) Flu B negati ve Not Available In-Office Order Internal Use Only DO Not Attach Compendium DO Not Attach Compendium, Do Not Delete/merge, 08/08/2024 16:17:28 08/17/19 24 08/17/2023 influ monse virus A + B + SARS- CoV-2 (COVI D19) Ag panel , rapid IA, upper respi rator y speci men Flu A negati ve Not Available In-Office Order Internal Use Only DO Not Attach Compendium DO Not Attach Compendium, Do Not Delete/merge, [id number] 08/14/2023 14:15:00 08/17/19 24 08/17/2023 influ monse virus A + B + SARS- CoV-2 (COVI D19) Ag panel , rapid IA, upper respi rator y speci men Flu B negati ve Not Available In-Office Order Internal Use Only DO Not Attach Compendium DO Not Attach Compendium, Do Not Delete/merge, [id number] 08/14/2023 14:15:00 08/17/19 24 08/17/2023 influ monse virus A + B + SARS- CoV-2 (COVI D19) Ag panel , rapid IA, upper respi rator y speci men Rapid SARS CoV 2 Ag, QL IA, respiratory specimen negati ve Not Available In-Office Order Internal Use Only DO Not Attach Compendium DO Not Attach Compendium, Do Not Delete/merge, [id number] 08/14/2023 14:15:00 11/24/19 24 11/25/2023 QUANT IFERO N-TB GOLD PLUS quantiferon incubation INCUBA TION PERFOR MED. Not Available [facility] ([facility]) [address] [facility], [place], [address], 11/26/2023 20:09:05 11/24/19 24 11/25/2023 QUANT IFERO [...] ol for the test. Not Available [facility] ([facility]) [address] [facility], [place], [address], 11/26/2023 20:09:05 11/24/19 24 11/26/2023 QUANT IFERO N-TB GOLD PLUS quantiferon- TB gold plus NEGATI VE negati ve No respo nse to M tuber melaniaos is antig ens detec kelsy. Infec tion with M tuber melaniaos is is unlik juan m, but high risk indiv idual s shoul d be consi dered for addit ional testi ng (ATS/ IDSA/ CDC Clini azael Pract ice Guide lines , 2017) . The refer ence range is an Antig en minus Nil resul t of <0.35 IU/mL . Chemi lumin escen ce immun oassa y metho dolog y Not Available [facility] ([facility]) [address] [facility], [place], [address], 11/26/2023 20:09:05 11/24/19 24 11/26/2023 QUANT IFERO N-TB GOLD PLUS quantiferon TB1 Ag value 0.00 IU/mL Not Available [facility] ([facility]) [address] [place], [address], 11/26/2023 20:09:05 11/24/19 24 11/26/2023 QUANT IFERO N-TB GOLD PLUS quantiferon TB2 Ag value 0.00 IU/mL Not Available [facility] ([facility]) [address] [place], [address], 11/26/2023 20:09:05 11/24/19 24 11/26/2023 QUANT IFERO N-TB GOLD PLUS quantiferon nil value 0.00 IU/mL Not Available [facility] ([facility]) [address] [place], [address], 11/26/2023 20:09:05 11/24/19 24 11/26/2023 QUANT IFERO N-TB GOLD PLUS quantiferon mitogen value >10.00 IU/mL Not Available [facility] ([facility]) [address] [facility], [place], [address], 11/26/2023 20:09:05 Result Notes None recorded. Problems Name Problem SNOMED Code Status Onset Date Resolution Date Notes Provider Name and Address Organization Details Recorded Time Eczema 42170341 Active 2017 Bekah Brenner MD Attn: Speedy olivares,[address] [place], [address], [place] [facility] 3 19:35:04 Disorder of nasal septum 12746197 Active 2017 Bekah Brenner MD Attn: Speedy olivares,[address] [place], [address], [place] [facility] 3 19:36:25 Seasonal allergy 684102886 Active 2017 Bekah Brenner MD Attn: Speedy olivares,[address] [place], [address], [place] [facility] 3 19:36:05 Moderate persisten t asthma 790609151 Active 2017 Bekah Brenner MD Attn: Speedy olivares,[address] [place], [address], [place] [facility] 3 19:34:42 Sleep apnea 47859418 Active 2017 Bekah Brenner MD Attn: Speedy olivares,[address] [place], [address], [place] [facility] 3 19:35:12 Streptoco ccal sore throat 60213152 Completed 201709/14/2017 Bekah Brenner MD Attn: Speedy g,[address] [place], [address], [place] [facility] 3 19:36:55 Migraine 88253583 Active 2021 Bekah Brenner MD Attn: Speedy olivares,[address] [facility], [place], [address], [place] [facility] 3 19:35:49 Gastroeso phageal reflux disease 381725637 Active 2022 Bekah Brenner MD Attn: Speedy olivares,[address] [facility], [place], [address], [place] [facility] 3 19:37:33 Obesity 994375828 Active 2022 Bekah Brenner MD Attn: Speedy olivares,[address] [facility], [place], [address], [place] [facility] 3 19:37:43 Blood in urine 37135857 Completed 202201/05/2024 Nelly Zavala MD Attn: Edaarley olivares,[address] [facility], [place], [address], [place] [facility] 4 21:55:21 Anxiety 04615878 Active 2022 Bekah Brenner MD Attn: Edaarley olivares,[address] [facility], [place], [address], [place] [facility] 3 19:38:01 Constipat ion 64815187 Completed 202201/05/2024 Nelly Zavala MD Attn: Edaarley olivares,[address] [facility], [place], [address], [place] [facility] 4 21:55:25 Smoker 19080633 Completed 202201/05/2024 Nelly Zavala MD Attn: Speedy olivares,[address] [facility], [place], [address], [place] [facility] 4 21:56:28 Anxiety disorder 498485261 Active 2022 Nelly Zavala MD Attn: Speedy marshall,[address] [facility], [place], [address], [place] [facility] 4 21:55:27 Depressiv e disorder 05354686 Active 2022 Nelly Zavala MD Attn: Speedy olivares,[address] [facility], [place], [address], [place] [facility] 4 21:55:30 Mood disorder 10486299 Active 2022 Nelly Zavala MD Attn: Speedy olivares,[address] [facility], [place], [address], [place] [facility] 4 19:42:36 Suicidal thoughts 0397899 Completed 202201/05/2024 Nelly Zavala MD Attn: Speedy olivares,[address] [facility], [place], [address], [place] [facility] 4 21:56:55 Feeling of lump in throat 237619701 Completed 202311/24/2023 Nelly Zavala MD Attn: Speedy olivares,[address] [facility], [place], [address], [place] [facility] 4 19:43:29 Pain of left ankle joint 154028911054 45471 Active 2023 Nelly Zavala MD Attn: Speedy olivares,[address] [facility], [place], [address], [place] [facility] 4 21:55:32 Obesity 241812460 Completed 01/11/2017 Bekah Brenner MD Attn: Speedy olivares,[address] [facility], [place], [address], [place] [facility] 3 19:37:43 Enlarged tonsil 789268395 Completed 01/11/2017 Ke brandon, [place] - [facility] 7 16:20:45 Vitamin D deficienc y 64263199 Active Bekah Brenner MD Attn: Speedy olivares,[address] [facility], [place], [address], [place] [facility] 3 19:36:13 Asthma 765623639 Completed 06/27/2017 Johnna Hinkle null, [place] [facility] 18:34:49 Overweigh t 627770438 Completed 01/11/2017 Ke brandon, [facility] 7 16:20:43 Eruption 794039272 Completed 201606/27/2017 Johnna brandon, [facility] 8 18:37:28 Problem Notes None recorded. Procedures Surgical History Date Name Laterality Status Provider Name and Address Organization Details Recorded Time 8 Tonsillectomy completed Nelida Cat MA [facility] 02/01/2020 11:37:38 Imaging Results None recorded. Procedure Notes None recorded. Medical Equipment None Reported. Allergies Allergen ID Allergen Name Allergen Category Reaction Reaction Severity Criticality Documentation Date Start Date Code Code System Note Provider Name and Address Organization Details Recorded Time 435908 amoxicill in medicatio n rash Not available Not available 09/28/2018 723 RxNorm Not Available Not Available Not Available 921528 Product containin g penicilli n (product) medicatio n Not available Not available Not available 02/14/2019 53789 8001 SNOMED Not Available Not Available Not Available 917477 Flovent medicatio n Not available Not available Not available 07/06/2022 17032 2 RxNorm Not Available Not Available Not Available 054470 Substance with sulfonami de structure and antibacte rial mechanism of action (substanc e) medicatio n Not available Not available Not available 11/24/2023 72909 8003 SNOMED Not Available Not Available Not [...] bromide 21 mcg (0.03 %) nasal spray Connell by intranas al route for 15 days. [...] Not Available Not Available Chlorasep tic Throat Connell 1.4 % aerosol Take 1 spray 5 [...] Not Available Not Available Not Avai lable Wixela Inhub 250 mcg-50 mcg/dose powder for inhalatio n inhale 1 puff by mouth twice a day 06/12 completed Not Available Not Available Not Available ID NOW COVID-19 Test Kit DIRECTED 02/07 completed Not Available Not Available Not Available Vitals Date Recorded Body height Provider Name an d Address Organization Details Last Updated DateTime 04/14/2023 160.02 cm Umu Camacho MA [facility] 04/14 10:07:06 Date Recorded Body height Body mass index (BMI) Body weight Body temperature Respiratory rate Heart rate Systolic blood pressure Diastolic blood pressure Provider Name and Address Organization Details Last Updated DateTime 4 160.02 cm 34.6 kg/m2 02532.6 1 g 98.2 [degF] 18 /min 84 /min 119 mm[Hg] 84 mm[Hg] Kenia Teran MA [facility] 4 09:44:09 Date Recorded Body height Body mass index (BMI) Body weight Body temperature Respiratory rate Oxygen saturation Oxygen saturation in Arterial blood by Pulse oximetry Heart rate Systolic blood pressure Diastolic blood pressure Provider Name and Address Organization Details Last Updated DateTime 4 160.02 cm 34.8 kg/m2 66881.2 5 g 99.6 [degF] 18 /min 98 % 98 % 90 /min 110 mm[Hg] 77 mm[Hg] Roxanna Knutson MA [facility] 4 15:46:45 Date Recorded Body height Body mass index (BMI) Body weight Heart rate Respiratory rate Body temperature Systolic blood pressure Diastolic blood pressure Provider Name and Address Organization Details Last Updated DateTime 4 160.02 cm 35.7 kg/m2 28628.5 2 g 70 /min 16 /min 98.3 [degF] 117 mm[Hg] 78 mm[Hg] Blanca Pabon MA [facility] 4 10:38:19 Date Recorded Body height Body mass index (BMI) Body weight Body temperature Respiratory rate Heart rate Systolic blood pressure Diastolic blood pressure Provider Name and Address Organization Details Last Updated DateTime 4 160.02 cm 35.1 kg/m2 78168.3 4 g 97.3 [degF] 16 /min 61 /min 100 mm[Hg] 70 mm[Hg] Blanca Pabon MA [facility] 4 08:52:36 Social History Question Answer Notes LastModified by Organizat ion Details LastModified Time Tobacco Smoking Status Former Smoker quit smoking in 2018 tati Cardona [place] [facility], [facility] 08/14/2022 16:08:31 Do You Have An Advance [...] Or Recreational Drugs Have You Used? Hiral Information not available 06/27/2017 Do You Or Have You Ever Used E-cigarettes Or Vape? Current User Of Electronic Cigarettes Vape Information not available 02/01/2020 Education 12 Information not available 02/01/2020 What Is Your Occupation? [employer] Information not available 06/27/2017 Hard Of Hearing [...] Response Coronary Artery Disease N Other N Atrial Fibrillation N High Blood Pressure N Blood Diseases N Depression N COPD [...] or Bladder Problems N GI Problems N Eating Disorder N Skin Problems N Anemia N Constipation N Heart Attack ([place]) N Diabetes N Bedwetting N Heart Problems/Murmur N Seizures/Epilepsy N Asthma Y Allergies N Substance Abuse N Hepatitis N Chicken Pox N Heart Failure N Autism Spectrum Disorder (ASD) N Osteoporosis N Gynecological History Statement/Question Response Date of [...] PF, 30 mcg/0.3 mL dose 1 completed ZINA HAMEED MD Attn: Accounting,[address], [place], [address], [place] [facility] 11/24/2023 11:14:00 meningococcal MCV4P 6 completed Not Available [facility] 05/06/2019 02:46:45 HPV, unspecified formulation 1 completed [...] 23:09:12 Hib, unspecified formulation 0 completed Johnna [place] [facility] 02/14/2019 23:09:12 Tdap 1 completed John[place] [facility] 02/14/2019 23:09:12 DTaP, unspecified formulation 2 completed [place] [facility] 02/14/2019 23:09:12 Hep A, ped/adol, 2 dose 9 completed [place] [facility] 02/14/2019 23:09:12 HPV, unspecified formulation 2 completed [place] [facility] 02/14/2019 23:09:12 MMR 1 completed [place] [facility] 02/14/2019 23:09:12 MMR 5 completed [place] [facility] 02/14/2019 23:09:12 pneumococcal conjugate PCV 7 9 completed [place] [facility] 02/14/2019 23:09:11 Hep A, ped/adol, 2 dose 8 completed [place] [facility] 02/14/2019 23:09:12 Hib-Hep B 0 completed [place] [facility] 02/14/2019 23:09:12 IPV 5 completed [place] [facility] 02/14/2019 23:09:12 pneumococcal conjugate PCV 7 2 completed [place] [facility] 02/14/2019 23:09:12 Hep B, adolescent or pediatric 0 completed [place] [facility] 02/14/2019 23:09:12 Hib-Hep B 0 completed [place] [facility] 02/14/2019 23:09:12 Influenza, split virus, quadrivalent, preservative 0 completed Nelida Cat MA null, [place] - [facility] 02/01/2020 13:54:05 Influenza, split virus, quadrivalent, PF 1 completed Eva Singh [place] [facility] 04/01/2021 11:11:26 Tdap 3 completed ZINA HAMEED MD Attn: Accounting,[address] [facility], [place], [address], [place] [facility] 06/25/2022 16:37:43 Influenza, split virus, trivalent, PF 4 completed Blanca Pabon MA null, [place] - [facility] 01/04/2024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 [address], [facility] 11/29/2023 11:27:10 01/04/2024 text/html 23 F h/o [...] tried PT. Abi Figueroa MD Attn: Accounting,[address], [place], [address], [facility] 01/05/2024 22:39:18 OBGyn Episode No OBEpisode recorded.
== END 2024-08-15 12:34 | disposition home or self-care (01) ==
LOC: ANHCARD 12:34
PROVIDERS: Visit Provider Obstetrics & Gynecology
DX: R00.2 Palpitations (principal); R94.31 Abnormal electrocardiogram [ECG] [EKG]
CPT/HCPCS: 93005; 93242

== ENCOUNTER 2024-11-20 15:44 | Inpatient (IN) | payer OTHER, SELFPAY ==
[2024-11-20] VITALS (18 sets, daily range): BP systolic 93–150; BP diastolic 47–90; PULSE 71–109; TEMP 36.4–37.1; BMI 40.6
--- NOTE | 2024-11-20 15:44 | LDADM ---
This patient, Sandra Perdue, was admitted to Labor/Delivery/Recovery 104 on 11/20/24 at 15:44. Plans for labor, pain management and were discussed with patient. Patient/family oriented to hospital policies and general routines including ID bracelet, bed and alarms, visiting hours, pain management, procedures, bathroom and other care routines, personal items, smoking policy, room service/diet and guest tray routines, infant security routines, and visiting hours. Patient/Family are encouraged to report perceived risks to care and to ask questions if they do not understand what they are told or what they should do. See OBIX for further documentation.
--- OUTSIDE RECORDS SUMMARY | 2024-11-20 15:50 | XMS_ITS | Clinical Summary ---
Author Organization [facility] Address [address] [place] [address] Care Team Providers Care Storeroom Keeper Name Role Phone Unavailable Primary Care Provider Unavailabl e Source Comments [facility],non-owned Affiliates and Associated Physician Practices is amultiple site organization consisting of ambulatory clinics and hospital sitesin [place], [place], [place] and [place]. This disclosure is being madepursuant to the Care Everywhere program and may not contain all information available regarding this patient. Last updated 18.[facility] [employer] Accessories Allergies Active Allergy Reactions Criticality Noted Date Comments Amoxicillin Urticaria Medium 12/05/2017 amoxicillin Fluticasone Other Low 09/24/2017 Metoclopramide Other 10/02/2024 anxiety Sulfa Antibiotics Rash Medium 07/05/2024 Medications * Be aware that medications may not be up to date on this document. Alwaysverify current medications with the patient. montelukast (Singulair) 10 MG tablet Take 1 (one) tablet by mouth once daily Active albuterol HFA (Proventil; Ventolin; Proair) 108 (90 Base) MCG/ACT inhaler Inhale 2 (two) puffs by mouth every 4 hours as needed Active Advair HFA 230-21 MCG/ACT INHALE 2 PUFFS INTO THE LUNGS TWICE A DAY FOR 30 DAYS Active Vit-Fe Fumarate-FA ( vitamin) 28-0.8 MG tablet Take 1 (one) tablet by mouth once daily Active Active Problems Problem Noted Date Diagnosed Date Cardiac condition affecting , antepartu m 10/30/2024 Asthma affecting , antepartum Depression during in third trimester 0 10/30/2024 Obesity in 10/30/2024 Estimated Date of Delivery Comme nts Yes 11/27/2024 Based on last ms nstrual period of 02/21/2024 Encounters Date Type Department Care Team Description 10/30/2024 8:48 AM CDT - 10/30/2024 11:59 PM CDT Hospital Encounter [facility]/ EVALUATION UNIT [address] [place] [address]. [address] [place] [address] Solo Lynne MD Childress, Katherine M Scolari, MD Discharge Disposition: Home or Self Care 10/30/2024 8:48 AM CDT - 10/30/2024 11:59 PM CDT Hospital Encounter [facility]ATION UNIT [address] [place] [address]. [address] [place] [address] Solo Lynne MD Discharge Disposition: Home or Self Care 10/30/2024 Travel 10/23/2024 2:30 PM CDT Office Visit [facility] [address] [place] [address] [address] [place] [id number] Solo Lynne MD White, Stephanie M, Palpitations (Primary Dx); First degree AV block 10/02/2024 9:13 AM CDT - 10/02/2024 11:59 PM CDT Hospital Encounter [facility]/ EVALUATION UNIT [address] [place] [address]. [address] [place] [phone] Solo Lynne MD Discharge Disposition: Home or Self Care 10/02/2024 9:00 AM CDT - 10/02/2024 9:12 AM CDT Hospital Encounter [facility]/ EVALUATION UNIT [address] [place] [address]. [address] [place] [address] Solo Lynne MD Discharge Disposition: Home or Self Care 10/02/2024 Orders Only [facility] PHYS OB [address] [id number] Kalin Simons MD Palpitations 10/02/2024 Travel 09/27/2024 Telephone [facility] EV[facility]UATION UNIT [address] [place] [address] [address] [place] [address] Gissell Culver Appointment from Last 3 Months Social History Tobacco Use Types Packs/Day Years Used Date Smoking Tobacco: Never Assessed Tobacco Cessation:Counseling Given: Yes Overall Financial Resource Strain (CARDIA) Answe r Date Recorded How hard is it for you to pa y for the very basics like food, housing, medical care, and heating? Not hard at all 10/02/2024 PHQ-2 Answer Date Recorded Patient Health Questionnaire-2 Score 0 10/23/2024 [facility] - Occupational Stress Questionnaire Answer Date Recorded Do you feel stress - tense, restless, nervous, or anxious, or unable to sleep at night because your mind is troubled all the time - these days? Only a little 10/02/2024 Hunger Vital Sign Answer Date Recorded Within the past 12 months, y ou worried that your food would run out before you got the money to buy more. Never true 10/03/19 25 Within the past 12 months, t he food you bought just didn't last and you didn't have money to get more. Never true 10/02/2024 PRAPARE - Transportation Answer Date Re corded In the past 12 months, has l ack of transportation kept you from medical appointments or from getting medications? No 09/17 In the past 12 months, has l ack of transportation kept you from meetings, work, or from getting things needed for daily living? No 10/02/2024 [place] Depression Scale Answer Date Recorded [place] Depression Scale Total 8 10/02/2024 The thought of harming myself has occurred to me . Never 10/02/2024 Housing Stability Vital Sign Answer Francisco e Recorded In the last 12 months, was t here a time when you were not able to pay the mortgage or rent on time? No 10/02/2024 In the past 12 months, how m any times have you moved where you were living? 2 10/02/2024 At any time in the past 12 m [facility], were you homeless or living in a usp (including now)? No 10/02/2024 Estimated Date of Delivery Comme nts Yes 11/27/2024 Based on last me nstrual period of 02/21/2024 Sex and Gender Information Value Date Recorded Sex Assigned at Not on file Legal Sex Female 5:40 AM [employer] Gender Identity Not on file Sexual Orientation Not on file Last Filed Vital Signs Vital Sign Reading Time Taken Comments Blood Pressure 120/83 10/30/2024 9:59 AM CDT Pulse 83 10/30/2024 9:59 AM CDT Temperature - - Respiratory Rate - - Oxygen Saturation 98% 10/23/2024 2:55 PM CDT Inhaled Oxygen Concentration - - Weight 100.1 kg (220 lb 9.6 oz) 10/30/2024 9:59 AM CDT Height 160 cm (5' 3) 10/02/2024 10:33 AM CDT Body Mass Index 39.08 10/02/2024 10:33 AM CDT Plan of Treatment Health Maintenance Due Date Last Done Comments HPV VACCINE (1 - 3-dose series) 06/18/2014 CHLAMYDIA/GONORRHEA SCREENING 2015 HEPATITIS C SCREENING 06/14/2017 DTAP/TDAP/TD VACCINES (1 - Tdap) 06/18/2018 HEPATITIS B VACCINE (1 of 3 - 19+ 3-dose series) 06/18/2018 PNEUMOCOCCAL VACCINE (1 of 2 - PCV) 06/18/2018 PAP SMEAR 06/18/2020 OB-TDAP CURRENT 08/28/2024 06/12/2022, OB-RHOGAM INJECTION 09/04/2024 OB-GROUP B STREP SCREEN 10/23/2024 INFLUENZA VACCINE (#1) 2024 , 04/01/2021, 02/01/2020, Additional history exists ZOSTER VACCINE (1 of 2) 06/18/2049 COVID-19 VACCINE Completed 01/24/2024, 12/26/2020 HIV SCREENING Completed 09/04/2024 OB-ONE HOUR GLUCOSE Completed 09/04/2024 DEPRESSION SCREENING Completed 10/02/2024 HIB VACCINE Aged Out No longer eligi ble based on patient's age to complete this topic MENINGOCOCCAL (Group B) VACCINE SHARED DECISION-MAKING Aged Out No longer eligible based on patient's age to complete this topic MENINGOCOCCAL GROUPS A/C/Y/W VACCINE Aged Out No longer eligible based on patient's age to complete this topic Respiratory Syncytial Virus (RSV) Vaccine Pt: or over 60 yrs (No Doses Required) Completed Procedures Procedure Name Priority Date/Time Associated Diagnosis Comments URINALYSIS - POCT (IP) BEAKER INTERFACE Routine 10/30/2024 10:02 AM CDT SONOGRAM - COMPLETE Routine 10/30/2024 9 :03 AM CDT AMB REFERRAL TO CARDIOLOGY Routine 10/23/2024 5:26 PM CDT Palpitations EKG 12-LEAD Routine 10/23/2024 3:17 PM CDT Palpitations TSH REFLEX FREE T4 Routine 10/02/2024 11 :31 AM CDT Palpitations URINALYSIS - POCT (IP) BEAKER INTERFACE Routine 10/02/2024 10:47 AM CDT SONOGRAM - COMPLETE Routine 10/02/2024 9 :30 AM CDT from Last 3 Months Results * (ABNORMAL) URINALYSIS - POCT (IP) BEAKER INTERFACE (10/30/2024 10:02 AM CDT) Only the most recent of2 resultswithin the time period is included. Color UA POCT Yellow Straw, Yellow, Dark Yellow, Light Yellow 10/30/2024 10:04 AM CDT [facility] Clarity UA POCT Clear Clear 10:04 AM CDT [facility] Specific [place] UA POCT 1.010 1.005 - 1.030 10/30/2024 10:04 AM CDT [facility] pH UA POCT 7.0 5.0 - 8.0 pH 10/30/2024 10:04 AM CDT [facility] Protein UA POCT Negative Negative 10:04 AM CDT [facility] Blood UA POCT Negative Negative 10/30/2024 10:04 AM CDT [facility] Leukocyte UA POCT 1+(A) Negative 10/30/2024 10:04 AM CDT [facility] Nitrite UA POCT Negative Negative 10:04 AM CDT [facility] Glucose UA POCT Negative Negative 10:04 AM CDT [facility] Ketone UA POCT Negative Negative 10/30/2024 10:04 AM CDT [facility] Bilirubin UA POCT Negative Negative 10/30/2024 10:04 AM CDT [facility] Urobilinogen UA POCT 0.2 0.1 - 1.0 EU/dL 10/30/2024 10:04 AM CDT [facility] Urine URINE / Unknown 10/30/2024 1 0:02 AM CDT 10/30/2024 10:04 AM CDT Solo Lynne MD LAB - POINT OF CARE ORDERABLES Final Result [facility] [address] [place] [address] * Sonogram - Complete (10/30/2024 9:03 AM CDT) Only the most recent of2 resultswithin the time period is included. Linked Results Indication ======== Encounter for other screening follow-up Maternal 1st degree AV node heart block/tachycardia History ====== OB History 2. Para 0 [id number] 1. elective termination 2023 Lab Tests Test Date Result NIPT Low risk, Male Maternal Assessment Physical Exam Height 163 cm, 5 ft 4 in. Weight 100 kg, 220 lb. Initial weight 87 kg, 192 lb. BMI 37.76 kg/m . Initial BMI 32.96 kg/m . Weight gain 13 kg, 28 lb Method ====== Transabdominal ultrasound. View: Suboptimal view: limited by maternal body habitus and position ========= Mays . Number of fetuses: 1 Dating ====== Date Details Gest. age [place] LMP 02/21/2024 36 w + 0 d 11/27/2024 Stated SALVADOR 36 w + 0 d 11/27/2024 U/S 10/30/2024 based upon AC, BPD, Femur, HC 36 w + 0 d 11/27/2024 Assigned dating based on the LMP, selected on 10/02/2024 36 w + 0 d 11/27/2024 General Evaluation Cardiac activity present. FHR 152 bpm. Presentation: cephalic Placenta: Placental site: anterior Umbilical cord: Cord vessels: 3 vessel cord. Insertion site: normal insertion Amniotic fluid: Amount of AF: normal. MVP 3.8 cm. COURTNEY 12.4 cm. Q1 3.6 cm, Q2 1.7 cm, Q3 3.8 cm, Q4 3.4 cm Biometry BPD 86.5 mm 34w 6d 27% Hadlock HC 323.7 mm 36w 4d 34% Hadlock AC 324.7 mm 36w 3d 71% Hadlock Femur 70.2 mm 36w 0d 45% Hadlock Humerus 57.9 mm 33w 4d 15% Donald HC / AC 1.00 Weight Calculation: EFW 2,861 g 55% Hadlock EFW (lb,oz) 6 lb 5 oz EFW by Hadlock ([id number]) appropriate Growth Overview Exam date GA BPD (mm) HC (mm) AC (mm) FL (mm) HL (mm) EFW (g) 10/02/2024 32w 0d 81.3 62% 299.3 44% 275.8 38% 59.5 14% 53.8 31% 1816 30% 10/30/2024 36w 0d 86.5 27% 323.7 34% 324.7 71% 70.2 45% 57.9 15% 2861 55% Anatomy The following structures appear normal: Spine Cervical spine. Thoracic spine. The following structures could not be adequately visualized: Abdomen Cord insertion. Spine Lumbar spine. Sacral spine. Extremities / Skeleton Left hand. The following structures were documented previously: Head / Neck Cranium. Lateral ventricles. Choroid plexus. Midline falx. Cavum septi pellucidi. Cerebellum. Cisterna magna. Thalami. Nuchal fold. Face Lips. Profile. Nose. Nasal bone. Orbits. Heart / Thorax 4-chamber view. RVOT view. LVOT view. 3-vessel view. 0-hgarbe-fgjhqse view. Situs. Aortic arch view. Bicaval view. Ductal arch view. Great vessels. Right lung. Left lung. Diaphragm. Abdomen Stomach. Kidneys. Bladder. Bowel. Genitals. Extremities / Skeleton Arms. Hands. Right hand. Legs. Feet. sex: male. Impression ========= Single, live, intrauterine at 36w 0d. The size is appropriate. The amniotic fluid volume is normal. No major malformations were seen within the limitations of ultrasound but anatomic survey remains incomplete. Ongoing attempts to clear the anatomic survey are likely futile due to advancing gestational age. Comment ======== ultrasound alone cannot detect all structural, genetic, or functional , placental, or maternal abnormalities Follow-up ======== The anatomic survey will remain incomplete due to late gestational age - recommend physical exam. Coding ====== Procedures [id number]: US Preg Uterus Follow Up Heatmaps PACS Anatomical Region Laterality Modality Other 10/30/2024 9:03 AM CDT Lesli Burdick MD [facility] ORDERABLES Edited Result - Final * Referral to Cardiology (10/23/2024 5:26 PM CDT) Solo Lynne MD OUTPATIENT REFERRALS Final Resu lt * EKG 12-Lead (10/23/2024 3:17 PM CDT) Ventricular Rate 100 BPM [facility] Atrial Rate 100 BPM [facility] P-R Interval 152 ms [facility] QRS Duration ms 76 ms [facility] Q-T Interval ms 340 ms [facility] QTC Calculation (Bezet) 438 ms [facility] Calculated P Cornish 49 degrees [facility] Calculated R Cornish 48 degrees [facility] Calculated T Cornish 7 degrees [facility] Interpretation EKG NORMAL SINUS RHYTHM POSSIBLE LEFT ATRIAL ENLARGEMENT BORDERLINE ECG Confirmed by DO ZAMORA STEPHANIE ([id number]) on 10/31/2024 4:52:11 PM [facility] 10/23/2024 3:17 PM CDT 10/31/2024 4:52 PM CDT us Sandy Zamora DO ECG ORDERABLES Edited Resu lt - Final [facility] * TSH REFLEX FREE T4 (10/02/2024 11:31 AM CDT) TSH 1.250 0.350 - 4.940 uIU/mL 10/02/2024 1:30 PM CDT [facility] Blood BLOOD SPECIMEN / Unknown Venipuncture / Unknown 10/02/2024 11:31 AM CDT 10/02/2024 12:41 PM CDT us Solo Lynne MD LAB - CHEMISTRY ORDERABLES Roxy l Result [facility] [address] [place] [address] from Last 3 Months Insurance [facility]
[2024-11-20 16:30] LABS: Hematocrit 35.0 % (37.0-47.0); Hemoglobin 11.6 g/dL (12.0-15.0); Immature Granulocyte Percent A 1.3 % (0-0.5); Lymphocytes Absolute Auto 2.15 K/mm3 (0.9-3.2); Mean Corpuscular HGB Conc 33.1 g/dl (32-36); Mean Corpuscular Hemoglobin 30.9 pg (26-34); Mean Corpuscular Volume 93.3 fl (80-100); Nucleated Red Blood Cells Absolute Auto 0.000 K/mm3 (0.0-0.012); Nucleated Red Blood Cells Perc 0.0 % (0.0-0.2); Platelet Count Result 258 k/mm3 (150-375); Red Blood Count 3.75 M/mm3 (4.2-5.4); White Blood Count 14.9 K/mm3 (4.5-10.0)
--- NOTE | 2024-11-20 16:41 | PM.IMHP ---
H&P: HPI History of Present Illness Date/Time: 11/20/24 16:41 Chief Complaint: elective induction of labor Narrative: Patient is a 24 year old at 39 weeks who presents for elective induction of labor. Her has been complicated by asthma, well controlled on AirDuo and montelukast. Otherwise, no major complications. She reports good movement, no strong contractions, no bleeding, no leakage of fluid. Review of Systems Review of Systems: All systems reviewed & are unremarkable except as noted in HPI and below PMFSH Past Medical History Medical History Asthma Family History Family History Grandparent Hypertension Father Clotting disorder Mother Cervical cancer Lung cancer Social History Social History Smoking status: Former smoker Tobacco type: e-cigarettes/vaping Second hand tobacco smoke exposure: No Additional smoking assessment comments: 1 pod a day. Alcohol intake: current Substance use: former Substance use type: does not use Lack of Transportation: No Lack of Food: Never True Current Housing: I Have Housing Concerned About Future Housing: No Difficulty Paying Gas/Electric Bills: No Difficulty Paying for Meds: No Currently Unemployed: No Education: High School Diploma/GED Difficulty w/ Childcare or Family Care: No Living arrangements: with family Gender identity (if verbalized by the patient): Female Spiritual care concerns: No Meds Home Medications and Allergies Home Medications ?Medication ?Instructions ?Recorded ?Confirmed ?Type albuterol sulfate 90 mcg/actuation 1 puff inhalation DAILY 06/26/20 10/30/24 History aerosol inhaler fluticasone 113 mcg-salmeterol 14 1 inh inhalation DAILY 06/26/20 10/30/24 History mcg/actuation breath activated powdr albuterol sulfate 90 mcg/actuation 2 puff inhalation PRN PRN 04/27/23 10/30/24 History aerosol inhaler Shortness Of Breath Or Wheezing montelukast 10 mg tablet 10 mg PO DAILY 04/27/23 10/30/24 History triamcinolone acetonide 0.5 % 1 applic topical BID 04/27/23 10/30/24 History topical cream vits no.130-ferrous fum 1 tablet PO DAILY 10/30/24 10/30/24 History 27 mg iron-folic acid 800 mcg tablet ( Vitamin) Allergies Allergy/AdvReac Type Severity Reaction Status Date / Time Penicillins Allergy Unknown Verified 10/30/24 15:42 Sulfa (Sulfonamide Allergy Rash Verified 10/30/24 15:42 Antibiotics) fluticasone (From Flovent AdvReac Severe Difficulty Verified 10/30/24 15:42 HFA) Breathing metoclopramide (From Reglan) AdvReac Anxiety Verified 10/30/24 15:42 Vital Signs Vital Signs - 24 hr 11/20/24 16:25 Pulse Rate 106 H Blood Pressure 104/64 Exam Const: General: comfortable and no acute distress Eyes: General: appearance normal, both eyes and all related structures Resp: Effort & Inspection: normal respiratory effort Cardio: Rate: regular rate Extrem: General: normal to inspection Psych: Mental Status: mental status grossly normal H&P: Results Labs Labs: Short CBC 11/20/24 Range/Units 16:04 WBC 14.9 H (4.5-10.0) K/mm3 Hgb 11.6 L (12.0-15.0) g/dL Hct 35.0 L (37.0-47.0) % Plt Count 258 (150-375) k/mm3 Assessment and Plan Assessment and plan (1) Asthma: Code(s): J45.909 - Unspecified asthma, uncomplicated Status: Acute Assessment and Plan: - well controlled (2) Encounter for elective induction of labor: Code(s): Z34.90 - Encounter for supervision of normal , unspecified, unspecified trimester Status: Acute Assessment and Plan: - overall uncomplicated aside from asthma as above - FHR category I - SVE /-3 per RN - cytotec per protocol
[2024-11-20 17:20] LABS: Syphilis IgG/IgM Antibody Non-Reactive (Nonreactive)
[2024-11-20] MEDS: LORATADINE 10 MG TABLET PO (20:55)
--- NOTE | 2024-11-20 21:20 | WPDANESEPP ---
Anes - Eval Pre Procedure Procedure: labor epidural Date/Time: 11/20/24 21:20 Surgeon: deborah Preop Diagnosis: pain during labor Pre Op Diagnosis: IOL Patient Data Age: 24 Gender: F Height: 1.6 m Weight: 104 kg Last Vital Signs Temp 37.1 C 11/20/24 16:22 Pulse 71 11/20/24 21:01 BP 119/70 11/20/24 21:01 Allergies Allergy/AdvReac Type Severity Reaction Status Date / Time Penicillins Allergy Unknown Verified 10/30/24 15:42 Sulfa (Sulfonamide Allergy Rash Verified 10/30/24 15:42 Antibiotics) fluticasone (From Flovent AdvReac Severe Difficulty Verified 10/30/24 15:42 HFA) Breathing metoclopramide (From Reglan) AdvReac Anxiety Verified 10/30/24 15:42 Home Medications ?Medication ?Instructions ?Recorded ?Confirmed ?Type albuterol sulfate 90 mcg/actuation 1 puff inhalation DAILY 06/26/20 10/30/24 History aerosol inhaler fluticasone 113 mcg-salmeterol 14 1 inh inhalation DAILY 06/26/20 10/30/24 History mcg/actuation breath activated powdr albuterol sulfate 90 mcg/actuation 2 puff inhalation PRN PRN 04/27/23 10/30/24 History aerosol inhaler Shortness Of Breath Or Wheezing montelukast 10 mg tablet 10 mg PO DAILY 04/27/23 10/30/24 History triamcinolone acetonide 0.5 % 1 applic topical BID 04/27/23 10/30/24 History topical cream vits no.130-ferrous fum 1 tablet PO DAILY 10/30/24 10/30/24 History 27 mg iron-folic acid 800 mcg tablet ( Vitamin) Laboratory Tests 11/20/24 16:04 WBC 14.9 H K/mm3 (4.5-10.0) RBC 3.75 L M/mm3 (4.2-5.4) Hgb 11.6 L g/dL (12.0-15.0) Hct 35.0 L % (37.0-47.0) MCV 93.3 fl (80-100) MCH 30.9 pg (26-34) MCHC 33.1 g/dl (32-36) RDW 13.0 % (11.5-14.5) Plt Count 258 k/mm3 (150-375) MPV 10.2 fl (7.4-10.4) Immature Gran % (Auto) 1.3 H % (0-0.5) Neut % (Auto) 76.4 H % (45.5-73.1) Lymph % (Auto) 14.4 L % (18.3-44.2) [place] % (Auto) 6.3 % (2.6-8.5) Eos % (Auto) 1.3 % (0-4.4) Baso % (Auto) 0.3 % (0.2-1.2) Lymph # (Auto) 2.15 K/mm3 (0.9-3.2) [place] # (Auto) 0.9 H K/mm3 (0.1-0.6) Eos # (Auto) 0.2 K/mm3 (0-0.3) Baso # (Auto) 0.0 K/mm3 (0.0-0.1) Abs Immat Gran (auto) 0.19 H K/mm3 (0.00-0.031) Absolute Neuts (auto) 11.4 H K/mm3 (1.3-6.7) Absolute Nucleated RBC 0.000 K/mm3 (0.0-0.012) Nucleated RBC % 0.0 % (0.0-0.2) Syphilis IgG/IgM Ab Non-reactive (Nonreactive) Blood Type A Positive Antibody Screen Negative Patient hx anesthesia problems: none Family hx anesthesia problems: none Results Review: All pre-operative results and documents have been reviewed as part of the pre-operative evaluation. [facility] Past Medical History Medical History (Updated 11/20/24 @ 21:21 by Johanny Ram CRNA) Intrauterine Morbid obesity with BMI of 40.0-44.9, adult Asthma Family History Family History Grandparent Hypertension Father Clotting disorder Mother Cervical cancer Lung cancer Social History Social History Smoking status: Former smoker Tobacco type: e-cigarettes/vaping Second hand tobacco smoke exposure: No Additional smoking assessment comments: 1 pod a day. Alcohol intake: current Substance use: former Substance use type: does not use Lack of Transportation: No Lack of Food: Never True Current Housing: I Have Housing Concerned About Future Housing: No Difficulty Paying Gas/Electric Bills: No Difficulty Paying for Meds: No Currently Unemployed: No Education: High School Diploma/GED Difficulty w/ Childcare or Family Care: No Living arrangements: with family Gender identity (if verbalized by the patient): Female Spiritual care concerns: No Exam Day of Procedure 11/20/24 21:20
[2024-11-21] VITALS (263 sets, daily range): BP systolic 69–143; BP diastolic 43–105; PULSE 25–147; TEMP 36.4–37.1; O2SAT 94–100
[2024-11-21] MEDS: LACTATED RINGERS 1,000 ML 125 ML IV CONT ×3 (10:24→22:18)
[2024-11-21] MEDS: OXYTOCIN 30 UNITS/NS 500 ML 30 UNITS/500 ML BAG IV CONT (10:24)
--- NOTE | 2024-11-21 11:01 | PM.OBPNLAB ---
Pain Control Date/time seen: 11/21/24 11:01 Comments: FHR category 1 SVE 2/60/-2 AROM small amount of clear odorless fluid
[2024-11-21] MEDS: ONDANSETRON INJ 4 MG/2 ML VIAL IV PUSH (23:45)
[2024-11-22] VITALS (64 sets, daily range): BP systolic 98–134; BP diastolic 53–100; PULSE 71–147; RESP 16–18; TEMP 36.1–36.8; O2SAT 93–100
--- NOTE | 2024-11-22 00:16 | PM.OBPRVD ---
OB - Vaginal Delivery Note Procedure Delivery date: 11/22/24 Events: Elective Induction of Labor Induction method: Per Misoprostol Protocol Delivery augmentation: Rupture of Membranes and Pitocin Delivery monitor: External FHT and Internal Uterine Route of delivery: Episiotomy description: None Laceration Description: Perineal - 1st Degree Delivery repair: vicryl Specimen: No Quantitative Blood Loss (ml): 100 Anesthesia type: Epidural Disposition: Floor Complications: No immediate complications Narrative: See H&P and notes for details on patient's admission and labor. She progressed to complete cervical dilation and at the appropriate time began pushing. With adequate expulsive efforts by the mother, the baby's head was delivered without difficulty. Nuchal cord was present x1 and was easily reduced. The baby's right shoulder was anterior and delivered under the pubic symphysis without difficulty. The posterior shoulder and the rest of the baby delivered without difficulty. The umbilical cord was doubly clamped and cut after 60 seconds of delayed cord clamping. Care of the infant was then assumed by the nursing staff. Baby Date of : 11/22/24 Time of : 00:05 Gestational Age by Date: 38 gender: Male presentation: vertex position: Left Occiput Anterior Placenta delivery description: Expressed Cord Vessel Description: 3 Vessels, Nuchal Cord, Reduced and Delayed Cord Clamping
[2024-11-22] MEDS: OXYTOCIN 30 UNITS/NS 500 ML 30 UNITS/500 ML BAG 125 UNITS IV CONT (00:54)
[2024-11-22] MEDS: WITCH HAZEL 40 PADS 1 PAD TOPICAL (03:05)
[2024-11-22] MEDS: BENZOCAINE 20% AER SPR (*SP) 56 GM CAN 1 SPRAY TOPICAL (03:05)
[2024-11-22] MEDS: IBUPROFEN 600 MG TABLET PO ×3 (04:58→20:58)
[2024-11-22] MEDS: ACETAMINOPHEN 325 MG TABLET 650 MG PO ×3 (04:58→20:58)
[2024-11-22] MEDS: FLUTICASONE/SALMETEROL 115-21 MCG INHALER 1 PUFF 2 PUFF INHALATION ×2 (09:00→20:10)
[2024-11-22] MEDS: MULTIVIT/MIN/PREN/FOL AC/IRON TABLET 1 TAB PO (09:58)
[2024-11-22] MEDS: DOCUSATE SODIUM 100 MG CAPSULE PO ×2 (13:42→20:59)
[2024-11-22] MEDS: DIBUCAINE 1% OINTMENT 30 GM TUBE 1 APPLIC TOPICAL (13:43)
[2024-11-23] VITALS (9 sets, daily range): BP systolic 102–129; BP diastolic 58–77; PULSE 73–99; RESP 15–18; TEMP 36.1–37.2; O2SAT 97–100
[2024-11-23 04:53] LABS: Hematocrit 32.3 % (37.0-47.0); Hemoglobin 10.3 g/dL (12.0-15.0)
[2024-11-23] MEDS: FLUTICASONE/SALMETEROL 115-21 MCG INHALER 1 PUFF 2 PUFF INHALATION ×2 (09:09→22:00)
[2024-11-23] MEDS: ACETAMINOPHEN 325 MG TABLET 650 MG PO ×2 (09:16→16:40)
[2024-11-23] MEDS: DOCUSATE SODIUM 100 MG CAPSULE PO (09:16)
[2024-11-23] MEDS: IBUPROFEN 600 MG TABLET PO ×2 (09:16→16:40)
[2024-11-23] MEDS: MULTIVIT/MIN/PREN/FOL AC/IRON TABLET 1 TAB PO (09:16)
--- NOTE | 2024-11-23 10:33 | WPDANLDPN2 ---
Anes-Prog Note L&D Date/Time: 11/23/24 10:33 Comfortable throughout: labor and delivery Neuraxial method: epidural Epidural/Spinal procedure site: clean & non-tender Neuro status: Neuro function grossly intact. Cardiovascular status: normal Respiratory status: normal Airway patency: baseline Mental status: baseline Post-Op hydration status: normal Vital Signs: Last Vital Signs Temp 98.7 F 11/23/24 04:22 Pulse 90 11/23/24 09:24 Resp 16 11/23/24 09:11 BP 102/58 L 11/23/24 09:24 Pulse Ox 99 11/23/24 09:23 O2 Del Method Room Air 11/22/24 10:00 Pain score (VAS): 0/10 Post-procedural complaints: none Patient feedback: Patient satisfied with anesthetic care.
[2024-11-23] MEDS: WITCH HAZEL 40 PADS 1 PAD TOPICAL (12:00)
[2024-11-23] MEDS: DIBUCAINE 1% OINTMENT 30 GM TUBE 1 APPLIC TOPICAL (12:00)
[2024-11-23] MEDS: BENZOCAINE 20% AER SPR (*SP) 56 GM CAN 1 SPRAY TOPICAL (12:00)
--- NOTE | 2024-11-23 12:09 | P.PNOB_ITS ---
OB - PN: Subj Subjective Date/time seen: 11/23/24 12:09 Patient comments: no complaints, pain well controlled, incisional pain, tolerating diet and flatus present OB - PN: Obj Data Labs 11/23/24 04:24 Labs: Laboratory Results - last 24 hr 11/23/24 04:24 Hgb 10.3 L Hct 32.3 L OB - PN A/P Plan day: 1 Plan: routine care Comments: No problems, routine care Time Spent With Patient Time: Total time spent is greater than 50% in coordination of care (as documented) at patient's floor/unit and/or counseling patient: Exam 2 Const: General: comfortable, no acute distress and alert Resp: Effort & Inspection: normal respiratory effort Auscultation: no crackles, no rales and no rhonchi Cardio: Rate: regular rate Heart sounds: no click, no murmurs and no rubs GI: Inspection: non-distended GI Palp: No Tenderness to palpation present (GI) Auscultation: normal bowel sounds Other: Incision - CDI Extrem: General: normal to inspection, no pedal edema and no calf tenderness
--- NOTE | 2024-11-23 14:50 | PC.NURSE ---
Report given to Maria Alejandra CARRERA at 1442. Pt. taken to OB 2nd floor at 1447.
--- NOTE | 2024-11-23 14:53 | OBPPTRN ---
Patient transferred to post room #277 via ambulatory . Support person- spouse present. Oriented to unit, room, information board, rooming in, admission packet and security measures. Patient verbalizes understanding.
--- NOTE | 2024-11-23 15:27 | PC.NURSE ---
Introductions were made, then consulted with patient to assess needs related to . Mother states that she is able to independently latch infant without issues. She does report slight pain when nursing so lanolin and gel cooling pads were provided. Infant latched optimally to the [left] breast in [football] position. Infant was [able] to maintain latch without pain to mother protecting the nipple with optimal positioning and latching. Encouraged patient to call this RN if it has been 2 -2.5 hours since the start of the last , call if does not latch, or if there is discomfort with .
--- NOTE | 2024-11-23 15:30 | PC.NURSE ---
Introductions were made, then consulted with patient to assess needs related to . Mother states that she is unsure if she is going to breastfeed. She is going to continue bottle feeding infant at this time. She will call for assistance if she decides to breastfeed.
[2024-11-24] MEDS: IBUPROFEN 600 MG TABLET PO ×2 (01:32→10:59)
[2024-11-24] MEDS: ACETAMINOPHEN 325 MG TABLET 650 MG PO ×2 (01:32→11:01)
[2024-11-24 07:20] VITALS: BP 111/77; PULSE 72; RESP 16; TEMP 37.1; O2SAT 100
--- NOTE | 2024-11-24 07:35 | P.PNOB_ITS ---
OB - PN: Subj Subjective Date/time seen: 11/24/24 07:35 Interval history: PPD#2 s/p Doing well, pain controlled Voiding without issue Tolerating general diet Ready for discharge home OB - PN: Obj Data Labs 11/23/24 04:24 OB - PN A/P Assessment and Plan (1) (spontaneous vaginal delivery): Code(s): O80 - Encounter for full-term uncomplicated delivery Status: Acute Plan day: 2 Plan: routine care and discharge home Time Spent With Patient Time: Total time spent is greater than 50% in coordination of care (as documented) at patient's floor/unit and/or counseling patient: Review of Systems 2 Review of Systems: All systems reviewed & are unremarkable except as noted in HPI and below Exam 2 Const: General: comfortable and no acute distress O rientation/consciousness: patient oriented x3 Resp: Effort & Inspection: normal respiratory effort
--- NOTE | 2024-11-24 07:38 | PM.OBDSVD ---
DS: Admitting Diagnosis Discharge Date 11/24/24 Admitting Diagnosis elective induction of labor DS: Discharge Diagnosis Discharge Diagnosis (1) (spontaneous vaginal delivery): Code(s): O80 - Encounter for full-term uncomplicated delivery Status: Acute OB - DS: Summary OB Procedures : None OB Procedures Intrapartum: Spontaneous Vag Delivery OB Procedures: : None Peripartum Data Laceration Description: Perineal - 1st Degree Episiotomy description: None Time Spent with Patient Time attestation: Total time spent providing and/or coordinating discharge services: Discharge Plan Discharge Attending physician on discharge: Khanh Lee Discharging Clinician: Khanh Lee Patient Disposition: Home Activity: may shower, as tolerated and pelvic rest Diet: as tolerated Patient Instructions: Antibiotic Form Patient Language: Korean Stand Alone Forms: General Discharge Information Follow-up/Referrals: Khanh Lee MD [Physician] - 4 Weeks Discharge Medications: New ibuprofen 600 mg Tablet 600 mg PO Q6H PRN (Reason: Cramping) Qty: 30 0RF Continued triamcinolone acetonide 0.5 % cream 1 applic TOPICAL BID montelukast 10 mg Tablet 10 mg PO DAILY albuterol sulfate 90 mcg/actuation HFA aerosol inhaler 2 puff INHALATION PRN PRN (Reason: Shortness Of Breath Or Wheezing) albuterol sulfate 90 mcg/actuation HFA aerosol inhaler 1 puff INHALATION DAILY fluticasone propion-salmeterol 113-14 mcg/actuation aerosol powdr breath activated 1 inh INHALATION DAILY Vitamin 27 mg iron- 800 mcg tablet 1 tablet PO DAILY Date of admission: 11/20/24 15:44 Primary Care Provider: PHYSICIAN,DIRECTOR TRANSPORTATION Admitting Provider: Khanh Lee Attending physician on admission: Khanh Lee Condition: Stable
[2024-11-24 09:00] VITALS: PULSE 72; RESP 16; O2SAT 100
[2024-11-24] MEDS: FLUTICASONE/SALMETEROL 115-21 MCG INHALER 1 PUFF 2 PUFF INHALATION (09:20)
[2024-11-24] MEDS: DOCUSATE SODIUM 100 MG CAPSULE PO (10:59)
[2024-11-24] MEDS: MEASLES,MUMPS,RUBELLA VACCINE 0.5 ML VIAL SUB-Q (12:14)
== END 2024-11-24 14:00 | disposition home or self-care (01) | DRG 560 ==
LOC: ANHLDR 15:49 → ANHOBPP 11-22 03:29 → ANHOB2 11-23 15:17
PROVIDERS: Admitting Provider Obstetrics & Gynecology; Visit Provider Obstetrics & Gynecology
DX: O99.52 Diseases of the respiratory system complicating childbirth (principal); J45.909 Unspecified asthma, uncomplicated; O70.0 First degree perineal laceration during delivery; O69.81X0 Labor and delivery complicated by cord around neck, without compression, not applicable or unspecified; Z3A.39 39 weeks gestation of pregnancy; Z37.0 Single live birth; Z87.891 Personal history of nicotine dependence
CPT/HCPCS: 36415; 85014; 85018; 85025; 86593; 86850; 86900; 86901; 90710; 94640; A9270; J2405; J2590; J2795; J7120